=== PATIENT | male | born 1955 | race Caucasian/White ===

== ENCOUNTER 2019-04-08 12:48 | Inpatient (IN) | payer OTHER ==
[~2019-04-08 12:48] MED LIST: Iopamidol 370 76% 100 ML VIAL ONE
[2019-04-08 13:39] LABS: #Basophils 0.1 thou/uL (0.0-0.2); #Lymphocytes 1.2 thou/uL (1.20-3.40); #Monocytes 0.7 thou/uL (0.11-0.59); %Basophils 1.2 % (0.0-1.0); %Eosinophils 0.5 % (0.0-10.0); %Lymphocytes 13.4 % (21.0-51.0); %Monocytes 7.8 % (0.0-10.0); %Neutrophils 77.1 % (42.0-75.0); Hemoglobin 13.5 g/dL (14.0-18.0); Mean Corpuscular HGB CONC 34.8 g/dL (32.0-36.0); Mean Corpuscular Hemoglobin 34.9 pg (27.0-31.0); Mean Platelet Volume 7.9 fL (7.4-10.4); Platelet Count 141 thou/uL (130-400); RBC Distribution Width 11.9 % (11.5-14.5); Red Blood Cell (RBC) Count 3.88 mill/uL (4.70-6.10); White Blood Cell (WBC) Count 9.1 thou/uL (4.8-10.8)
--- NOTE | 2019-04-08 13:44 | RAD ---
EXAM: Single view of the chest HISTORY: Shortness of breath COMPARISON: None FINDINGS: Single view of the chest shows a normal sized cardiomediastinal silhouette. Airspace opacit ies are seen projecting over both lower lobes. The bones are unremarkable. IMPRESSION: Bilateral lower lobe infiltrates
[2019-04-08 14:05] LABS: ALT (SGPT) 74 U/L (8-55); AST (SGOT) 67 U/L (5-34); Albumin 4.1 g/dL (3.4-4.8); Alkaline Phosphatase 48 U/L (40-110); Anion Gap 15 mmol/L (10-20); BUN (Urea Nitrogen) 18 mg/dL (8.4-25.7); Calc. Creatinine Clearance 0 mL/min (70-130); Calcium 8.8 mg/dL (7.8-10.44); Carbon Dioxide 24 mmol/L (23-31); Chloride 104 mmol/L (98-107); Estimated GFR-MDRD Greater than 90; Globulin 2.6 g/dL (2.4-3.5); Glucose 112 mg/dL (80-115); Lipase 28 U/L (8-78); Potassium 3.9 mmol/L (3.5-5.1); Protein, Total 6.7 g/dL (5.8-8.1); Sodium 139 mmol/L (136-145)
[2019-04-08] MEDS ORDERED: Nitroglycerin 2% Ointment 1 INCH/1 GM Packet ONE (14:34)
[2019-04-08] MEDS ORDERED: Aspirin Chewable 81 MG TAB ONE (14:34)
[2019-04-08 14:38] LABS: CKMB 2.8 ng/mL (0-6.6)
--- NOTE | 2019-04-08 15:49 | CT ---
EXAM: CTA of the chest HISTORY: Shortness of breath and elevated d-dimer COMPARISON: None TECHNIQUE: Multiple contiguous axial images were obtained a CTA of the chest with contrast per pulmon angie embolism protocol. 3-D oblique MIP reformats and direct coronal reformats were performed. FINDINGS: HEART: Normal in size without focal cardiac abnormality. PULMONARY ARTERIES: Normal in caliber without filling defects to suggest pulmonary emboli. MEDIASTINUM: No hilar or mediastinal lymphadenopathy. LUNGS: No focal infiltrates or masses. Dependent bilateral atelectasis PLEURAL SPACE: Small bilateral pleural effusions. No pneumothorax. CHEST WALL SOFT TISSUES: Bilateral gynecomastia VISUALIZED OSSEOUS STRUCTURES: Degenerative changes in the spine VISUALIZED SUBDIAPHRAGMATIC STRUCTURES: Unremarkable IMPRESSION: 1. No evidence of pulmonary thromboembolism 2. Tiny bilateral pleural effusions with adjacent atelectasis
[2019-04-08] MEDS ORDERED: Enoxaparin Sodium 100 MG/ML SYRINGE ONE (16:03)
[2019-04-08] MEDS ORDERED: Enoxaparin Sodium 30 MG/0.3 ML SYRINGE ONE ×2 (16:03→16:08)
[2019-04-08] MEDS ORDERED: Loperamide HCl 2 MG CAP PO PRN (16:14)
[2019-04-08] MEDS ORDERED: Bisacodyl 5 MG TAB PO PRN (16:14)
[2019-04-08] MEDS ORDERED: Ondansetron ODT 4 MG TAB PO PRN (16:14)
[2019-04-08] MEDS ORDERED: HYDROcodone/Acetaminophen 5/325 mg Tablet PO PRN (16:14)
[2019-04-08] MEDS ORDERED: Acetaminophen 325 MG TAB PO PRN (16:14)
[2019-04-08] MEDS ORDERED: Ondansetron PF 4 MG/2 ML Vial IVP PRN (16:14)
[2019-04-08] MEDS ORDERED: Labetalol HCl 100 MG/20 ML VIAL SLOW IVP PRN (16:16)
[2019-04-08] MEDS ORDERED: Docusate 100 MG CAP PO PRN (16:16)
[2019-04-08] MEDS ORDERED: Melatonin 3 MG TAB PO PRN (16:16)
[2019-04-08] MEDS ORDERED: diphenhydrAMINE 25 MG CAP PO PRN (16:16)
[2019-04-08] MEDS ORDERED: Benzonatate 100 MG CAP PO PRN (16:16)
[2019-04-08] MEDS ORDERED: Nitroglycerin 0.4 MG TAB (25 Tab Bottle) SL PRN (16:18)
[2019-04-08] MEDS ORDERED: Morphine 2 MG/ML SYRINGE SLOW IVP PRN (16:18)
[2019-04-08] MEDS ORDERED: Furosemide 20 MG/2 ML VIAL ONE (16:39)
[2019-04-08] MEDS ORDERED: Enoxaparin Sodium 60 MG/0.6 ML SYRINGE ONE (17:15)
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
[2019-04-08] MEDS ORDERED: cloNIDine 0.2mg/24 Hour PATCH TD SCH (18:30)
[2019-04-08 18:54] LABS: Troponin I 0.319 ng/mL (< 0.028)
[2019-04-08 20:34] VITALS: BMI 36.6
[2019-04-08] MEDS: Enoxaparin Sodium 120 MG/0.8 ML SYRINGE SC SCH (21:18)
[2019-04-08] MEDS: Famotidine 20 MG TAB PO SCH (21:18)
[2019-04-08] MEDS: hydrALAZINE 20 MG/ML VIAL SLOW IVP PRN (21:20)
[2019-04-09 04:35] LABS: #Basophils 0.1 thou/uL (0.0-0.2); #Eosinphils 0.1 thou/uL (0.0-0.7); #Lymphocytes 1.5 thou/uL (1.20-3.40); #Monocytes 0.7 thou/uL (0.11-0.59); #Neutrophils 3.4 thou/uL (1.40-6.50); %Basophils 1.3 % (0.0-1.0); %Eosinophils 2.2 % (0.0-10.0); %Lymphocytes 25.7 % (21.0-51.0); %Monocytes 12.1 % (0.0-10.0); %Neutrophils 58.7 % (42.0-75.0); Hemoglobin 12.9 g/dL (14.0-18.0); Mean Corpuscular Hemoglobin 33.2 pg (27.0-31.0); Mean Platelet Volume 8.3 fL (7.4-10.4); Platelet Count 141 thou/uL (130-400); RBC Distribution Width 11.8 % (11.5-14.5); White Blood Cell (WBC) Count 5.8 thou/uL (4.8-10.8)
[2019-04-09 04:56] LABS: Anion Gap 12 mmol/L (10-20); BUN (Urea Nitrogen) 14 mg/dL (8.4-25.7); Calc. Creatinine Clearance 170 mL/min (70-130); Carbon Dioxide 26 mmol/L (23-31); Chloride 102 mmol/L (98-107); Estimated GFR-MDRD Greater than 90; Glucose 99 mg/dL (80-115); Potassium 3.7 mmol/L (3.5-5.1); Sodium 136 mmol/L (136-145)
[2019-04-09] MEDS: hydrALAZINE 20 MG/ML VIAL SLOW IVP PRN (05:33)
[2019-04-09] MEDS: Famotidine 20 MG TAB PO SCH ×2 (08:15→20:19)
--- NOTE | 2019-04-09 08:58 | PDOC.HOSPP ---
- Subjective Encounter Date: 04/09/19 Encounter Time: 11:20 Subjective: Patient with improvement in SOB. BP still quite elevated. Has Clonidine patch on. Was on BP meds outpatient but they caused foot pain so stopped them. Sounds like he was on Felodipine or Amlodipine along with Metoprolol. No chest pain. No swelling today. - Objective Vital Signs & Weight: Vital Signs (12 hours) Temp Pulse Resp BP Pulse Ox 04/09/19 08:12 98.3 F 92 20 199/106 H 96 04/09/19 05:33 83 04/09/19 04:00 97.7 F 83 17 184/101 H 97 04/09/19 00:44 98.1 F 87 16 168/79 H 96 04/09/19 00:00 98.1 F 87 16 168/79 H 96 Weight Weight 269 lb 12.8 oz Result Diagrams: 04/09/19 04:11 04/09/19 04:11 Hospitalist ROS - Review of Systems Constitutional: denies: fever, chills Respiratory: denies: cough, shortness of breath Cardiovascular: denies: chest pain, palpitations, orthopnea Gastrointestinal: denies: nausea, vomiting, abdominal pain - Medication Medications: Active Medications Generic Name Dose Route Start Last Admin Trade Name Freq PRN Reason Stop Dose Admin Enoxaparin Sodium 120 mg 04/08/19 21:00 04/08/19 21:18 Lovenox SC Not Given 0900,2100 [facility] Famotidine 20 mg 04/08/19 21:00 04/09/19 08:15 Pepcid PO Not Given BID [facility] Hydralazine HCl 10 mg 04/08/19 18:19 04/09/19 05:33 Apresoline SLOW IVP 10 mg Q4H PRN Administration Hypertension Lisinopril 5 mg 04/09/19 09:00 04/09/19 08:15 Zestril PO 5 mg DAILY [facility] Administration - Exam General Appearance: NAD, awake alert ENT: moist mucosa Heart: RRR, no murmur, no gallops, no rubs Respiratory: CTAB, no wheezes, no rales, no ronchi Gastrointestinal: soft, non-tender, non-distended, normal bowel sounds Extremities: no edema Psychiatric: normal affect, normal behavior, A&O x 3 Hosp A/P (1) Hypertensive emergency Code(s): I16.1 - HYPERTENSIVE EMERGENCY Status: Acute (2) Acute congestive heart failure Code(s): I50.9 - HEART FAILURE, UNSPECIFIED Status: Acute (3) NSTEMI (non-ST elevated myocardial infarction) Code(s): I21.4 - NON-ST ELEVATION (NSTEMI) MYOCARDIAL INFARCTION Status: Acute (4) HLD (hyperlipidemia) Code(s): E78.5 - HYPERLIPIDEMIA, UNSPECIFIED Status: Chronic (5) Obesity Code(s): E66.9 - OBESITY, UNSPECIFIED Status: Chronic - Plan Nitroglycerin, ASA, Hydralazine and Clonidine prn Lasix IV BID Enoxaparin full dose ECHO Cardiology consult
[2019-04-09] MEDS ORDERED: Lisinopril 5 MG TAB PO SCH (09:00)
[2019-04-09] MEDS ORDERED: Aspirin 325 MG TAB PO SCH (09:00)
--- NOTE | 2019-04-09 09:39 | ULT ---
RIGHT UPPER QUADRANT ULTRASOUND: HISTORY: Elevated LFTs. FINDINGS: Hepatomegaly with liver length of 21 cm. No evidence for gallstones. There is a prominent amount of pericholecystic fluid or edema. Negative Martins's sign. Common bile duct 0.5 cm. Coarse increased liver echogenicity, evidence for fatty change. Visualized pancreas and right kidney are unremarkabl e. Negative Martins's sign. IMPRESSION: Gallbladder, pericholecystic fluid, or minimal wall edema. No evidence of gallstones. Negative Murp hy's sign. Enlarged fatty liver. No common duct dilatation. POS: TPC
[2019-04-09] MEDS: cloNIDine 0.1 MG TAB PO PRN ×3 (10:04→20:35)
[2019-04-09] MEDS: Nitroglycerin 2% Ointment 1 INCH/1 GM Packet TOP SCH ×2 (10:04→20:19)
[2019-04-09] MEDS: Enoxaparin Sodium 120 MG/0.8 ML SYRINGE SC SCH (10:09)
[2019-04-09] MEDS ORDERED: Iopamidol 370 76% 100 ML VIAL ONE (10:55)
[2019-04-09] MEDS ORDERED: traZODone HCl 50 MG TAB PO PRN (12:14)
[2019-04-09 12:19] LABS: Bilirubin Negative (Negative); Blood, Urine Negative (Negative); Clarity Clear (Clear); Glucose, Urine (Dipstick) Normal (Negative); Leukocyte Negative Leu/uL (Negative); Nitrite Negative (Negative); Protein, Urine (Dipstick) Negative (Neg-Trace); Urobilinogen Normal mg/dL (Less than 2)
[2019-04-09 12:36] LABS: Amphetamine Not Detected (NotDetected); Barbiturates Screen Not Detected (NotDetected); Benzodiazepine Screen Not Detected (NotDetected); Cocaine Metabolite Screen Not Detected (NotDetected); Medtox Control Line Valid? VALID (VALID); Medtox Reader # READER 4; Methadone Not Detected (NotDetected); Methamphetamine Not Detected (NotDetected); Opiate Screen Not Detected (NotDetected); Oxycodone Screen Not Detected (NotDetected); Phencyclidine (PCP) Not Detected (NotDetected); THC/Cannabinoid Screen Not Detected (NotDetected); Tricyclic Screen Not Detected (NotDetected)
[2019-04-09] MEDS ORDERED: Heparin (Artline) 500 ML ONE ×2 (13:30→14:52)
[2019-04-09] MEDS ORDERED: Lidocaine 1% (PF) 30 ML VIAL ONE (13:30)
[2019-04-09] MEDS ORDERED: Sodium Chloride 0.9% 1,000 ML IV SCH (13:45)
[2019-04-09] MEDS ORDERED: Furosemide 40 MG/4 ML VIAL SLOW IVP SCH (14:00)
[2019-04-09] MEDS ORDERED: hydrALAZINE 20 MG/ML VIAL ONE (14:06)
[2019-04-09] MEDS ORDERED: Nitroglycerin 4.9 GM Bottle ONE (14:06)
[2019-04-09] MEDS ORDERED: Midazolam HCl 2 mg/2 ml Vial ONE (14:08)
[2019-04-09] MEDS ORDERED: Fentanyl 100 MCG/2 ML VIAL ONE (14:08)
[2019-04-09] MEDS ORDERED: Nitroglycerin 100MG/250ML BOT 250 ML ONE (14:13)
[2019-04-09] MEDS ORDERED: Verapamil 5 MG/2 ML VIAL ONE (14:17)
[2019-04-09] MEDS ORDERED: Heparin 10,000 UNITS/1 ML VIAL ONE ×2 (14:17→15:01)
--- NOTE | 2019-04-09 14:17 | CON ---
DATE OF CONSULTATION: 04/09/2019 REASON FOR CONSULTATION: Elevated troponin, shortness of breath, and hypertension. HISTORY OF PRESENT ILLNESS: Mr. Schmitt is a very pleasant 64-year-old gentleman, who recently presented with increased shortness of breath. He did have some mild chest tightness. Blood pressure initially was 230 systolic. This has improved. So to have his symptoms. His troponin was elevated at 0.6. He has no previous history of underlying coronary artery disease. He did admit to stopping all his medications. CT chest done in the emergency room showed no PE, and chest x-ray did suggest bilateral lower lobe infiltrates, but was not noted on CT scan. Abdominal ultrasound did not suggest gallstones with negative Martins sign. PAST MEDICAL HISTORY: Hypertension and hyperlipidemia. PAST SURGICAL HISTORY: None. SOCIAL HISTORY: Positive tobacco use. Dips tobacco. Negative alcohol use. HOME MEDICATIONS: None. REVIEW OF SYSTEMS: A 10-point review of systems is reviewed as above, otherwise negative. PHYSICAL EXAMINATION: GENERAL: The patient is a pleasant male, who is in no acute distress. The patient appears their stated age. VITAL SIGNS: Blood pressure 175/94, pulse 86, and respirations 20. NEUROLOGIC: The patient is alert and oriented x3 with no focal neurologic deficits. HEENT: Sclerae without icterus. Mouth has moist mucous membranes with normal pallor. NECK: No JVD. Carotid upstroke brisk. No bruits bilaterally. LUNGS: Clear to auscultation with unlabored respirations. BACK: No scoliosis or kyphosis. CARDIAC: Regular rate and rhythm with normal S1 and S2. No S3 or S4 noted. No significant rubs, murmurs, thrills, or gallops noted throughout the precordium. PMI is not displaced. There is no parasternal heave. ABDOMEN: Soft, nontender, nondistended. No peritoneal signs present. No hepatosplenomegaly. No abnormal striae. EXTREMITIES: 2+ femoral and 2+ dorsalis pedis pulses. No cyanosis, clubbing, or edema. SKIN: No gross abnormalities. PERTINENT LABORATORY DATA: Hemoglobin 12.9. Troponin 0.350. BNP of 240. IMPRESSION: 1. Elevated troponin. 2. Malignant hypertension. 3. Tobacco abuse. RECOMMENDATIONS: Mr. Schmitt did have elevated troponin and may be related to underlying coronary artery disease. This may also be related to type 2 CT for elevated blood pressure. I discussed proceeding with coronary angiography versus medical therapy versus noninvasive stress study. Initially, he opted for a noninvasive stress study. He then decided to proceed with coronary angiography. I discussed procedure in full detail with Jean Paul Oskar. Risks include, but not limited to the following . All questions answered. Also discussed drug coated and nondrug coated stent placement. There were no contraindications. We will proceed if needed. He understands he has to take Plavix for at least 6 months. We will manage his blood pressure aggressively. Job ID: [id number]
[2019-04-09] MEDS ORDERED: TICAGRELOR 90 MG TABLET ONE (15:01)
[2019-04-09] MEDS ORDERED: Acetaminophen/Codeine 30-300mg Tablet PO PRN (15:25)
[2019-04-09] MEDS ORDERED: traMADol HCl 50 MG TAB PO PRN (15:25)
[2019-04-09] MEDS ORDERED: Milk Of Magnesia 30 ML UDCUP PO PRN (15:25)
[2019-04-09] MEDS: Carvedilol 3.125 MG TAB PO SCH (15:58)
[2019-04-09] MEDS: Sodium Chloride 0.9% 1,000 ML IV SCH (16:12)
[2019-04-09] MEDS: TICAGRELOR 90 MG TABLET PO SCH (20:27)
[2019-04-10 04:24] LABS: #Eosinphils 0.2 thou/uL (0.0-0.7); #Lymphocytes 1.3 thou/uL (1.20-3.40); #Monocytes 0.7 thou/uL (0.11-0.59); %Basophils 0.5 % (0.0-1.0); %Monocytes 13.6 % (0.0-10.0); %Neutrophils 57.9 % (42.0-75.0); Hemoglobin 12.2 g/dL (14.0-18.0); Mean Corpuscular HGB CONC 34.2 g/dL (32.0-36.0); Mean Corpuscular Hemoglobin 34.8 pg (27.0-31.0); Mean Platelet Volume 8.5 fL (7.4-10.4); Platelet Count 130 thou/uL (130-400); RBC Distribution Width 11.9 % (11.5-14.5); White Blood Cell (WBC) Count 5.1 thou/uL (4.8-10.8)
[2019-04-10 04:43] LABS: ALT (SGPT) 42 U/L (8-55); AST (SGOT) 24 U/L (5-34); Albumin 3.6 g/dL (3.4-4.8); Alkaline Phosphatase 40 U/L (40-110); Anion Gap 11 mmol/L (10-20); BUN (Urea Nitrogen) 10 mg/dL (8.4-25.7); Bilirubin, Total 1.4 mg/dL (0.2-1.2); Calc. Creatinine Clearance 172 mL/min (70-130); Calcium 8.8 mg/dL (7.8-10.44); Carbon Dioxide 25 mmol/L (23-31); Chloride 104 mmol/L (98-107); Estimated GFR-MDRD Greater than 90; Globulin 2.5 g/dL (2.4-3.5); Glucose 87 mg/dL (80-115); Potassium 3.7 mmol/L (3.5-5.1); Protein, Total 6.1 g/dL (5.8-8.1); Sodium 136 mmol/L (136-145)
[2019-04-10] MEDS: Sodium Chloride 0.9% 1,000 ML IV SCH (06:30)
--- NOTE | 2019-04-10 08:20 | PDOC.HOSPP ---
- Subjective Encounter Date: 04/10/19 Encounter Time: 11:30 Subjective: Patient a bit fatigued. No other symptoms. BP better today. No chest pain/SOB. - Objective Vital Signs & Weight: Vital Signs (12 hours) Temp Pulse Resp BP BP Pulse Ox 04/10/19 04:00 98.4 F 84 20 144/70 H 97 04/10/19 00:51 63 19 140/72 99 04/09/19 21:15 76 19 199/109 H 04/09/19 20:35 199/109 H Weight Weight 267 lb Result Diagrams: 04/10/19 03:52 04/10/19 03:52 Hospitalist ROS - Review of Systems Constitutional: denies: fever, chills Respiratory: denies: cough, shortness of breath Cardiovascular: denies: chest pain, palpitations, orthopnea Gastrointestinal: denies: nausea, vomiting, abdominal pain - Medication Medications: Active Medications Generic Name Dose Route Start Last Admin Trade Name Freq PRN Reason Stop Dose Admin Carvedilol 3.125 mg 04/09/19 17:00 04/09/19 15:58 Coreg PO 3.125 mg BID-WM [facility] Administration Clonidine 0.1 mg 04/09/19 08:40 04/09/19 20:35 Catapres PO 0.1 mg Q4H PRN Administration SBP Greater Than 180 Famotidine 20 mg 04/08/19 21:00 04/09/19 20:19 Pepcid PO Not Given BID [facility] Hydralazine HCl 10 mg 04/08/19 18:19 04/09/19 05:33 Apresoline SLOW IVP 10 mg Q4H PRN Administration Hypertension Nitroglycerin 1 inch 04/09/19 09:00 04/09/19 20:19 Nitro-Bid 2% Ointment TOP Not Given BID S[facility] Ticagrelor 90 mg 04/09/19 21:00 04/09/19 20:27 Brilinta PO 90 mg BID S[facility] Administration Tramadol HCl 50 mg 04/09/19 15:25 04/09/19 20:36 Ultram PO 50 mg Q6H PRN Administration Pain 7-10 Trazodone HCl 50 mg 04/09/19 12:14 04/09/19 20:27 Desyrel PO 50 mg HS PRN Administration Insomnia - Exam General Appearance: NAD, awake alert ENT: moist mucosa Heart: RRR, no murmur, no gallops, no rubs Respiratory: CTAB, no wheezes, no rales, no ronchi Gastrointestinal: soft, non-tender, non-distended, normal bowel sounds Extremities: no edema Psychiatric: normal affect, normal behavior, A&O x 3 Hosp A/P (1) Hypertensive emergency Code(s): I16.1 - HYPERTENSIVE EMERGENCY Status: Resolved (2) Acute congestive heart failure Code(s): I50.9 - HEART FAILURE, UNSPECIFIED Status: Ruled-out (3) NSTEMI (non-ST elevated myocardial infarction) Code(s): I21.4 - NON-ST ELEVATION (NSTEMI) MYOCARDIAL INFARCTION Status: Acute (4) HLD (hyperlipidemia) Code(s): E78.5 - HYPERLIPIDEMIA, UNSPECIFIED Status: Chronic (5) Obesity Code(s): E66.9 - OBESITY, UNSPECIFIED Status: Chronic (6) CAD (coronary artery disease) Code(s): I25.10 - ATHSCL HEART DISEASE OF [place] CORONARY ARTERY W/O ANG PCTRS Status: Acute Plan: s/p 2 stents - Plan Nitroglycerin, ASA, Brilinta, increasing Coreg and Losartan to control BP Stents placed for multivessel CAD ECHO- normal EF, LVH DVT Proph: SCD Home when ok with cardiology
[2019-04-10] MEDS ORDERED: Losartan 25 MG TAB PO SCH (09:00)
[2019-04-10] MEDS ORDERED: Aspirin Chewable 81 MG TAB PO SCH (09:00)
[2019-04-10] MEDS: Famotidine 20 MG TAB PO SCH (09:01)
[2019-04-10] MEDS: Carvedilol 3.125 MG TAB PO SCH (09:02)
[2019-04-10] MEDS: Nitroglycerin 2% Ointment 1 INCH/1 GM Packet TOP SCH (09:02)
[2019-04-10] MEDS: TICAGRELOR 90 MG TABLET PO SCH ×2 (09:05→16:39)
--- NOTE | 2019-04-10 13:54 | PRG ---
DATE OF SERVICE: 04/10/2019 SUBJECTIVE: Mr. Schmitt is doing well. No current episodes of chest pain or pressure. Blood pressure appears to be more stable. He is currently on aspirin and ticagrelor in addition to losartan and carvedilol. OBJECTIVE: VITAL SIGNS: Blood pressure 147/78, pulse 70, and temperature afebrile. LUNGS: Clear to auscultation. HEART: Regular rate and rhythm. ABDOMEN: Soft, nontender, and nondistended. EXTREMITIES: No edema. IMPRESSION: 1. Malignant hypertension. 2. Unstable angina. RECOMMENDATIONS: Mr. Schmitt's blood pressure appears to be better controlled. He recently underwent stent placement to the LAD and circumflex artery and he is currently doing well. I will continue aspirin and Brilinta in addition to Coreg and losartan. We would add statin therapy. Plan is to follow up with Mr. Schmitt in 1 to 2 weeks. Job ID: [id number]
--- NOTE | 2019-04-10 15:17 | DIS ---
DATE OF ADMISSION: 04/08/2019 DATE OF DISCHARGE: 04/10/2019 PRIMARY CARE PHYSICIAN: Mark Moran. REASON FOR ADMISSION: [id number] myocardial infarction. DIAGNOSES AT DISCHARGE: 1. Gbv-AE-whygwrtne myocardial infarction. 2. Hypertensive emergency. 3. Coronary artery disease, status post 2 stents. 4. Hyperlipidemia. 5. Obesity. PROCEDURES: 1. CT angiography of the chest and thorax showing no evidence for pulmonary embolism, but tiny bilateral pleural effusions. 2. Echocardiogram showing ejection fraction of 50% to 55%. Mild concentric left ventricular hypertrophy. 3. Cardiac catheterization showing severe multivessel disease with successful stent placement in the LAD and circumflex. 4. Abdominal ultrasound showing fluid around the gallbladder and edema, but no gallstones and negative Martins signs with an enlarged fatty liver. SUMMARY OF HOSPITAL COURSE: This is a 64-year-old white male with a known history of hypertension, who stopped taking medicines because it was causing his feet to hurt in the past. He came in with complaint of shortness of breath. No specific chest pain. He was found to have elevated cardiac markers. His blood pressure was very elevated above 200 systolic. This was brought down with multiple medications. Dr. Devlin was consulted. He did a cardiac catheterization and placed 2 stents as above. The patient also had some mildly elevated liver function tests, AST and ALT on admission, so he had an ultrasound done. This did show some edema around the gallbladder, but he had no pain and no tenderness, and showed a fatty liver as well. The edema was thought to be due to acute congestion from his hypertensive emergency, which is now resolved. His LFTs came back down to normal and his gallbladder was not symptomatic. No evidence of acute cholecystitis. There was no further workup done for this. The patient's blood pressure was difficult to control with addition of multiple medications, eventually was running fairly well controlled in the 140s and he was declared stable for discharge. DISCHARGE MANAGEMENT: Discharged to home. ACTIVITY: As tolerated. DIET: Healthy heart diet. FOLLOWUP: Follow up with Dr. Devlin in 1 week with cardiac rehab in [place] and with Dr. Mark Moran in 2 to 3 weeks. DISCHARGE MEDICATIONS: 1. Aspirin 81 mg daily, 30 tablets dispensed. 2. Carvedilol 6.25 mg twice a day, 60 tablets dispensed. 3. Losartan 50 mg daily, 30 tablets dispensed. 4. Brilinta 90 mg twice a day, 60 tablets dispensed. TIME SPENT: Arranging the details of this discharge took 32 minutes. Job ID: [id number]
--- NOTE | 2019-04-10 15:21 | PQF ---
CLINICAL DOCUMENTATION IMPROVEMENT CLARIFICATION FORM: ICD-10 Updated PLEASE DO AN ADDENDUM TO THE PROGRESS NOTE WITH ANY DOCUMENTATION UPDATES OR ADDITIONS AND CARRY THROUGH TO DC SUMMARY. THANK YOU. DATE: 04/10/2019 ATTN: Dr. Morris Please exercise your independent, professional judgment in responding to the clarification form. Clinical indicators are provided on the bottom of this form for your review Please check appropriate box(s): AMI TYPE: [ X ] Type 1 OR (NSTEMI) [ ] Type 2 OR (T2MI) secondary to: [ ] hypertension [ ] arrhythmia [ ] other [ ] Unstable Angina [ ] Other diagnosis [ ] Unable to determine In addition, please specify: Present on Admission (POA): [ X ] Yes [ ] No [ ] Unable to determine CLINICAL INDICATORS - SIGNS / SYMPTOMS / LABS / RESULTS AND LOCATION IN EMR 04/09 ([facility]) LAB: Troponin 0.350 Pt did have elevated troponin and may be related to underlying CAD. This may also be related to type 2 OR for elevated BP. PN 04/10: Hypertensive Emergency NSTEMI 04/10 ([facility]) Malignant hypertension Unstable angina RISKS: H&P 04/08: PMH of uncontrolled HTN. TREATMENT: H&P 04/08: Plan: Cardiology consult Full dose lovenox trend cardiac enzymes PN 04/10: Plan: Nitroglycerin, ASA, Brilinta, increasing Coreg and Losarten to control BP Stents placed for multivessel CAD Thank you, Yennifer (This form is maintained as a part of the permanent medical record) 2014 [employer]. All Rights Reserved Yennifer Meza RN, BSN [email or web address] Office: [phone] [facility]
[2019-04-10 16:24] VITALS: TEMP 98
[2019-04-10] MEDS: cloNIDine 0.1 MG TAB PO PRN (16:38)
[2019-04-10] MEDS ORDERED: Carvedilol 6.25 MG TAB PO SCH (17:00)
[2019-04-10 17:41] VITALS: BP 163/93
[2019-04-10] MEDS ORDERED: Atorvastatin Calcium 40 MG TAB PO SCH (21:00)
--- NOTE | 2019-04-11 07:18 | EKG ---
Test Reason : Blood Pressure : / mmHG Vent. Rate : 083 BPM Atrial Rate : 083 BPM P-R Int : 174 ms QRS Dur : 110 ms QT Int : 446 ms P-R-T Axes : 078 -41 031 degrees QTc Int : 524 ms Normal sinus rhythm Possible Left atrial enlargement Left axis deviation Left ventricular hypertrophy Prolonged QT Abnormal ECG No previous ECGs available Confirmed by DR. Devora GONG ([id number]) on 04/11/2019 7:18:13 AM Referred By: Confirmed By:DR. Devora GONG
== END 2019-04-10 18:05 | disposition home or self-care (01) | DRG 247 ==
LOC: ERS 12:48 → 2NO 16:11
PROVIDERS: ADMIT Internal Medicine; ATTEND Emergency Medicine
PROC: 027135Z Dilation of Coronary Artery, Two Arteries with Two Drug-eluting Intraluminal Devices, Percutaneous Approach (ICD-10-PCS; principal; 2019-04-09)
PROC: 4A023N7 Measurement of Cardiac Sampling and Pressure, Left Heart, Percutaneous Approach (ICD-10-PCS; 2019-04-09)
PROC: B2111ZZ Fluoroscopy of Multiple Coronary Arteries using Low Osmolar Contrast (ICD-10-PCS; 2019-04-09)
DX: I21.4 Non-ST elevation (NSTEMI) myocardial infarction (principal); I16.1 Hypertensive emergency; I10 Essential (primary) hypertension; E78.5 Hyperlipidemia, unspecified; Z91.14 Patient's other noncompliance with medication regimen; Z68.36 Body mass index [BMI] 36.0-36.9, adult; E66.01 Morbid (severe) obesity due to excess calories; I25.110 Atherosclerotic heart disease of native coronary artery with unstable angina pectoris
CPT/HCPCS: 36415; 36416; 71045; 71275; 76705; 80048; 80053; 80306; 81003; 82553; 83690; 83880; 84484; 85025; 85347; 85379; 93005; 93010; 93306; 93458; 93798; 99152; 99153; C1769; C1874; C1887; J0360; J1644; J1650; J1940; J2001; J2250; J3010; Q9967

== ENCOUNTER 2019-04-18 11:55 | Inpatient (IN) | payer OTHER ==
[2019-04-18 13:04] LABS: #Eosinphils 0.1 thou/uL (0.0-0.7); #Monocytes 0.5 thou/uL (0.11-0.59); #Neutrophils 5.3 thou/uL (1.40-6.50); %Basophils 0.7 % (0.0-1.0); %Lymphocytes 14.8 % (21.0-51.0); %Monocytes 7.3 % (0.0-10.0); %Neutrophils 76.3 % (42.0-75.0); Hemoglobin 14.7 g/dL (14.0-18.0); Mean Corpuscular HGB CONC 34.4 g/dL (32.0-36.0); Mean Corpuscular Hemoglobin 34.4 pg (27.0-31.0); Mean Corpuscular Volume 99.9 fL (78.0-98.0); Mean Platelet Volume 7.6 fL (7.4-10.4); Platelet Count 207 thou/uL (130-400); RBC Distribution Width 11.7 % (11.5-14.5); Red Blood Cell (RBC) Count 4.27 mill/uL (4.70-6.10); White Blood Cell (WBC) Count 6.9 thou/uL (4.8-10.8)
[2019-04-18] MEDS ORDERED: hydrALAZINE 20 MG/ML VIAL ONE ×2 (13:17→18:06)
--- NOTE | 2019-04-18 13:18 | RAD ---
Chest AP view INDICATION: Dyspnea COMPARISON: Chest radiograph dated April 08, 2019 FINDINGS: Lungs: There are interstitial opacities involving both lower lobes slightly less pronounced than on the prior exam. Cardiac silhouette: Mild cardiomegaly Pulmonary vasculature: Mild pulmonary vascular congestion Pleural spaces: Tiny left pleural effusion. No right-sided pleural effusion identified. Upper abdomen: No abnormality seen. Osseous structures: No acute osseous abnormality. Additional findings: None. IMPRESSION: Findings suspicious for mild CHF.
[2019-04-18 13:26] LABS: ALT (SGPT) 51 U/L (8-55); AST (SGOT) 36 U/L (5-34); Albumin 4.4 g/dL (3.4-4.8); Alkaline Phosphatase 55 U/L (40-110); Anion Gap 16 mmol/L (10-20); BUN (Urea Nitrogen) 14 mg/dL (8.4-25.7); Calc. Creatinine Clearance 0 mL/min (70-130); Calcium 9.1 mg/dL (7.8-10.44); Carbon Dioxide 23 mmol/L (23-31); Chloride 103 mmol/L (98-107); Estimated GFR-MDRD Greater than 90; Globulin 3.1 g/dL (2.4-3.5); Glucose 84 mg/dL (80-115); Potassium 3.8 mmol/L (3.5-5.1); Protein, Total 7.5 g/dL (5.8-8.1); Sodium 138 mmol/L (136-145)
[2019-04-18] MEDS ORDERED: Nitroglycerin 2% Ointment 1 INCH/1 GM Packet ONE (14:43)
[2019-04-18] MEDS ORDERED: Furosemide 40 MG/4 ML VIAL ONE (14:43)
[2019-04-18] MEDS ORDERED: Nitroglycerin 0.4 MG TAB 1 EACH ONE (14:43)
[2019-04-18] MEDS ORDERED: Labetalol HCl 100 MG/20 ML VIAL ONE (16:09)
[2019-04-18] MEDS ORDERED: Ondansetron PF 4 MG/2 ML Vial IVP PRN (16:44)
[2019-04-18] MEDS ORDERED: Acetaminophen 325 MG TAB PO PRN (16:44)
[2019-04-18] MEDS ORDERED: Enalaprilat Dihydrate 1.25 MG/ML VIAL SLOW IVP PRN (16:46)
[2019-04-18] MEDS ORDERED: Furosemide 20 MG/2 ML VIAL SLOW IVP SCH (18:30)
[2019-04-18 18:40] LABS: Troponin I 0.034 ng/mL (< 0.028)
[2019-04-18] MEDS ORDERED: Ondansetron PF 4 MG/2 ML Vial ONE (18:47)
--- NOTE | 2019-04-18 18:49 | HP ---
PRIMARY CARE PROVIDER: Dr. Mark Moran. CHIEF COMPLAINT: Elevated blood pressure. HISTORY OF PRESENT ILLNESS: Mr. Schmitt is a pleasant 64-year-old gentleman, who was seen at [facility] on 04/18/2019. He was hospitalized at this facility from April 08 to of this year for [id number] myocardial infarction, hypertensive emergency, coronary artery disease status post PCI with 2 stents. He reports that he also has a history of depression and was off his antidepressants for a few months before resuming last week. He went to see his primary care provider earlier today. He was found to have elevated blood pressures. He was therefore sent to the emergency room. He denies any chest pain. He denies any shortness of breath. He denies any fevers or chills. He denies any nausea or vomiting. He denies any vision changes. REVIEW OF SYSTEMS: All systems were reviewed and found to be negative except for the pertinent positives mentioned above. PAST MEDICAL HISTORY: Hypertension, coronary artery disease status post PCI with stent. PAST SURGICAL HISTORY: None. PSYCHIATRIC HISTORY: Depression. SOCIAL HISTORY: The patient drinks a pint of vodka every day. He used to chew tobacco, but has stopped it. He denies recreational drug use. FAMILY HISTORY: Significant for stroke in his father. ALLERGIES: SULFA. CURRENT MEDICATIONS: The patient is unable to recall the name of his medications. He was discharged home on: 1. Aspirin 81 mg daily. 2. Coreg 6.25 mg 2 times a day. 3. Losartan 50 mg daily. 4. Brilinta 90 mg 2 times a day. PHYSICAL EXAMINATION: GENERAL: On examination, Mr. Schmitt is awake and alert, not in acute distress. He is obese. VITAL SIGNS: Blood pressure is 193/91, pulse 64, respiratory rate 18, and oxygen saturation 96% on room air. He is afebrile. EYES: No scleral icterus, no conjunctival pallor. ENT: Moist mucosal membranes. No oropharyngeal erythema or exudates. NECK: Supple, nontender, trachea is midline. RESPIRATORY: Accessory muscles of breathing are not active. Chest wall movements are symmetric bilaterally. Lungs are clear to auscultation without wheeze, rhonchi, or crepitations. CARDIOVASCULAR: S1 and S2 are heard, regular. Peripheral pulses palpable. ABDOMEN: Soft, nontender, bowel sounds are heard. NEUROLOGIC: Cranial nerves 2 through 12 are intact. MUSCULOSKELETAL: Power is 5/5 in all 4 extremities. SKIN: No rashes or subcutaneous nodules. LYMPHATIC: No cervical lymphadenopathy. PSYCHIATRIC: Normal mood, normal affect, the patient is oriented to person, place, and time. LABORATORY DATA: Mr. Schmitt's labs and investigations were reviewed. I reviewed his electrocardiogram, which shows normal sinus rhythm, no ST changes to suggest an acute coronary syndrome. I also reviewed his chest x-ray, which shows mild pulmonary vascular congestion. AST is elevated at 36. Comprehensive metabolic profile is otherwise normal. Troponin I is normal at 0.028. BNP is elevated at 352. White count, hemoglobin, and platelet count are normal. ASSESSMENT AND PLAN: Mr. Schmitt is a pleasant 64-year-old gentleman, who was seen at [facility] on 04/18/2019. His problem list includes: 1. Hypertensive urgency: Mr. Schmitt is presenting with hypertensive urgency. He will be admitted to the hospital for further management. He will be started on p.r.n. antihypertensives and his home medications will be resumed. Further management depending on how he responds. 2. Congestive heart failure: Suspected, based on chest x-ray appearance and elevated BNP. The patient himself denies any shortness of breath or lower extremity edema. He has received a dose of furosemide in the emergency room, which I will continue for now. Cardiology Service will be consulted both for new onset congestive heart failure as well as hypertensive urgency. 3. Coronary artery disease: This appears to be stable. 4. Alcohol abuse: The patient has been counseled regarding alcohol cessation. He will be started on ASE protocol and banana bag. 5. Elevated AST: Most likely secondary to alcohol abuse. To be followed as outpatient. 6. Depression: Moderate, the patient reports that he recently resumed his antidepressant, but is unable to recall the name. Once this is clarified, he can be started on the medication. Many thanks for allowing me to participate in your patient's care. Please feel free to contact me with any questions or concerns. LEVEL OF RISK: High. LEVEL OF COMPLEXITY: High. Job ID: [id number]
[2019-04-18] MEDS: Labetalol HCl 100 MG/20 ML VIAL SLOW IVP PRN (19:53)
[2019-04-18] MEDS: TICAGRELOR 90 MG TABLET PO SCH (20:05)
[2019-04-18 20:58] LABS: Troponin I 0.035 ng/mL (< 0.028)
[2019-04-18] MEDS: hydrALAZINE 20 MG/ML VIAL SLOW IVP PRN (22:18)
[2019-04-18 23:39] VITALS: BMI 34.5
[2019-04-19] MEDS: Labetalol HCl 100 MG/20 ML VIAL SLOW IVP PRN (00:52)
[2019-04-19] MEDS: Multivitamins, Adult 10 ML, Folic Acid 1 MG, Thiamine HCl 100 MG in Dextrose 5 %-0.45 %... IV SCH ×2 (00:53→18:11)
[2019-04-19] MEDS ORDERED: Melatonin 3 MG TAB PO PRN (01:52)
[2019-04-19] MEDS ORDERED: Melatonin 3 MG TAB PO SCH (02:00)
[2019-04-19] MEDS ORDERED: Lidocaine 2% Viscous Solution 10 ML, Aluminum & Magnesium Hydroxide 30 ML SSW SCH (02:30)
[2019-04-19 04:49] LABS: #Lymphocytes 0.9 thou/uL (1.20-3.40); #Monocytes 1.1 thou/uL (0.11-0.59); #Neutrophils 6.9 thou/uL (1.40-6.50); %Basophils 0.4 % (0.0-1.0); %Eosinophils 0.5 % (0.0-10.0); %Lymphocytes 10.5 % (21.0-51.0); %Monocytes 12.5 % (0.0-10.0); %Neutrophils 76.2 % (42.0-75.0); Hemoglobin 14.7 g/dL (14.0-18.0); Mean Corpuscular HGB CONC 34.5 g/dL (32.0-36.0); Mean Corpuscular Hemoglobin 34.2 pg (27.0-31.0); Mean Corpuscular Volume 99.1 fL (78.0-98.0); Mean Platelet Volume 7.9 fL (7.4-10.4); Platelet Count 207 thou/uL (130-400); RBC Distribution Width 11.8 % (11.5-14.5)
[2019-04-19] MEDS: hydrALAZINE 20 MG/ML VIAL SLOW IVP PRN (05:10)
[2019-04-19 05:13] LABS: Anion Gap 16 mmol/L (10-20); BUN (Urea Nitrogen) 13 mg/dL (8.4-25.7); Calc. Creatinine Clearance 159 mL/min (70-130); Calcium 8.9 mg/dL (7.8-10.44); Carbon Dioxide 24 mmol/L (23-31); Chloride 99 mmol/L (98-107); Estimated GFR-MDRD Greater than 90; Glucose 111 mg/dL (80-115); Potassium 3.4 mmol/L (3.5-5.1); Sodium 136 mmol/L (136-145)
[2019-04-19] MEDS: Furosemide 40 MG/4 ML VIAL SLOW IVP SCH ×2 (06:23→14:08)
[2019-04-19] MEDS: Carvedilol 6.25 MG TAB PO SCH ×4 (07:22→20:49)
[2019-04-19] MEDS: Aspirin 81 mg Enteric Coated Tablet PO SCH (07:29)
[2019-04-19] MEDS: TICAGRELOR 90 MG TABLET PO SCH ×2 (07:30→20:50)
[2019-04-19] MEDS: Enoxaparin Sodium 40 MG/0.4 ML SYRINGE SC SCH (07:31)
[2019-04-19] MEDS ORDERED: Carvedilol 6.25 MG TAB PO SCH (08:00)
[2019-04-19] MEDS ORDERED: Losartan 25 MG TAB PO SCH ×3 (08:00→09:00)
[2019-04-19] MEDS ORDERED: ALPRAZolam 0.25 MG TAB PO SCH (08:00)
[2019-04-19] MEDS: FLUoxetine HCl 20 MG CAP PO SCH (08:19)
[2019-04-19] MEDS: cloNIDine 0.1 MG TAB PO PRN ×2 (08:19→18:39)
[2019-04-19] MEDS ORDERED: Potassium Chloride 20 MEQ TAB PO SCH (14:45)
--- NOTE | 2019-04-19 18:43 | PDOC.HOSPP ---
- Subjective Encounter Date: 04/19/19 Encounter Time: 08:20 Subjective: Pt seen for followup re: hypertensive urgency. Feels better today. - Objective Vital Signs & Weight: Vital Signs (12 hours) Temp Pulse Resp BP BP Pulse Ox 04/19/19 18:39 172/79 H 04/19/19 15:16 98.2 F 60 12 149/76 H 97 04/19/19 11:01 61 14 105/54 L 97 04/19/19 09:00 99.1 F 04/19/19 07:45 99.3 F 67 15 196/93 H 97 Weight Weight 255 lb I&O: 04/18/19 04/19/19 04/20/19 06:59 06:59 06:59 Intake Total 2560 Output Total 3200 Balance -640 Result Diagrams: 04/19/19 04:01 04/19/19 04:01 Additional Labs: Accuchecks 04/18/19 19:20 POC Glucose 93 Labs and MARs reviewed by me EKG Reviewed by me: Yes (Tele: NSR) Hospitalist ROS - Review of Systems Constitutional: denies: fever, chills, sweats, weakness, malaise Respiratory: denies: cough, shortness of breath, SOB with excertion, pleuritic pain, wheezing Cardiovascular: denies: chest pain, palpitations, orthopnea, paroxysmal noc. dyspnea, edema, light headedness Gastrointestinal: denies: nausea, vomiting, abdominal pain, diarrhea, constipation, melena, hematochezia Musculoskeletal: denies: neck pain, shoulder pain, arm pain, back pain, hand pain, leg pain, foot pain Neurological: reports: other (headache). denies: weakness, numbness, incoordination, change in speech, confusion, seizures - Medication Medications: Active Medications Generic Name Dose Route Start Last Admin Trade Name Freq PRN Reason Stop Dose Admin Acetaminophen 650 mg 04/18/19 16:44 04/18/19 19:49 Tylenol PO 650 mg Q4H PRN Administration Headache/Fever/Mild Pain (1-3) Aspirin 81 mg 04/19/19 09:00 04/19/19 07:29 Ecotrin PO 81 mg DAILY SCOOTER Administration Carvedilol 12.5 mg 04/19/19 09:00 04/19/19 08:09 Coreg PO Not Given BID SCOOTER Clonidine 0.1 mg 04/19/19 07:56 04/19/19 18:39 Catapres PO 0.1 mg BIDPRN PRN Administration BP > 170/100 Enoxaparin Sodium 40 mg 04/19/19 09:00 04/19/19 07:31 Lovenox SC 40 mg 0900 SCOOTER Administration Fluoxetine HCl 20 mg 04/19/19 09:00 04/19/19 08:19 Prozac PO 20 mg DAILY SCOOTER Administration Furosemide 40 mg 04/19/19 06:00 04/19/19 14:08 Lasix SLOW IVP 40 mg 0600,1400 SCOOTER Administration Hydralazine HCl 10 mg 04/18/19 16:45 04/19/19 05:10 Apresoline SLOW IVP 10 mg Q4H PRN Administration SBP Greater Than 180 Multivitamins 10 ml/ Folic 1,011.2 mls @ 50 mls/hr 04/18/19 18:30 04/19/19 18 :11 Acid 1 mg/ Thiamine HCl 100 mg IV 1,011.2 mls / Dextrose/Sodium Chloride Q24HR SCOOTER Administration Labetalol HCl 10 mg 04/18/19 16:46 04/19/19 00:52 Normodyne SLOW IVP 10 mg Q4H PRN Administration SBP Greater Than 170 Ondansetron HCl 4 mg 04/18/19 16:44 04/19/19 00:52 Zofran IVP 4 mg Q6H PRN Administration Nausea/Vomiting Sodium Chloride 10 ml 04/19/19 09:00 04/19/19 14:09 Flush - Normal Saline IVF 10 ml Q12HR SCOOTER Administration Ticagrelor 90 mg 04/18/19 21:00 04/19/19 07:30 Brilinta PO 90 mg BID SCOOTER Administration - Exam General Appearance: awake alert General - other findings: Obese Eye: anicteric sclera ENT: normocephalic atraumatic Neck: supple Heart: RRR, no gallops, no rubs, normal peripheral pulses Respiratory: CTAB, no wheezes, no rales, no ronchi, normal chest expansion Gastrointestinal: soft, non-tender, non-distended, normal bowel sounds Extremities: no cyanosis Psychiatric: normal affect, normal behavior, A&O x 3 Hosp A/P (1) Hypertensive urgency Code(s): I16.0 - HYPERTENSIVE URGENCY Status: Acute (2) Alcohol abuse Code(s): F10.10 - ALCOHOL ABUSE, UNCOMPLICATED Status: Chronic (3) HLD (hyperlipidemia) Code(s): E78.5 - HYPERLIPIDEMIA, UNSPECIFIED Status: Chronic (4) Obesity Code(s): E66.9 - OBESITY, UNSPECIFIED Status: Chronic Qualifiers: Obesity classification: adult class 1 (BMI 30 - 34.9) - Plan out of bed/ambulate BP improved. Ambien PRN for insomnia. Continue statin. Continue ASE protocol.
[2019-04-19] MEDS ORDERED: Zolpidem Tartrate 5 MG TAB PO PRN (19:03)
--- NOTE | 2019-04-19 20:53 | CON ---
DATE OF CONSULTATION: 04/19/2019 REASON FOR CONSULTATION: Hypertension. PRIMARY JAVA WEB ARCHITECT: Dr. Anders Devlin. HISTORY OF PRESENT ILLNESS: Mr. Schmitt is a pleasant 64-year-old white gentleman, who comes to the hospital for high blood pressure. He had an [place] back on April 08. He underwent PCI by Dr. Devlin. He had stenting to his LAD and left circumflex. He was discharged home, doing well. He was evaluated by his primary care doctor yesterday and was found to have a very high blood pressure in the 190s range, so he was sent over for further evaluation. He was admitted and up titration of medications was started and his blood pressure is doing much better now. On my evaluation, Mr. Schmitt denies any chest pain, tightness, and pressure. His blood pressure is much better controlled. PAST MEDICAL HISTORY: 1. Hypertension. 2. Coronary artery disease, status post PCI just a week or two ago. PAST SURGICAL HISTORY: PCI to LAD and left circumflex on April 10. SOCIAL HISTORY: Drinks a pint of vodka everyday. Chews tobacco, but has stopped since. No drug use. FAMILY HISTORY: Stroke in father. No early coronary artery disease. OUTPATIENT MEDICATIONS: 1. Fluoxetine 20 mg a day. 2. Losartan 100 mg daily. 3. Aspirin 81 a day. 4. Carvedilol 12.5 b.i.d. 5. Clonidine 0.1 b.i.d. p.r.n. 6. Atorvastatin 40 mg at bedtime. 7. Brilinta 90 mg b.i.d. ALLERGIES: SULFA DRUGS. REVIEW OF SYSTEMS: A 12-point review of systems was also negative unless stated in the history of present illness. PHYSICAL EXAMINATION: VITAL SIGNS: Temperature 98.2, pulse , respiratory rate 12, saturating 97% on 2 L nasal cannula, and blood pressure 149/76. GENERAL: Awake, alert, and oriented x3. No distress. HEENT: Normocephalic and atraumatic. NECK: Supple. LUNGS: Clear. CARDIOVASCULAR: S1 and S2. No S3 or S4. No murmurs. ABDOMEN: Soft. Positive bowel sounds. EXTREMITIES: No edema. SKIN: Warm and dry. LABORATORY DATA: Laboratory work was reviewed. CBC and chemistries were reviewed. Troponin was 0.02, 0.03, and 0.03. BNP of 352. Chest x-ray was reviewed, showed mild CHF. ASSESSMENT: 1. Hypertensive urgency. 2. Coronary artery disease, status post recent stenting to left anterior descending artery and left circumflex. 3. Mild diastolic congestive heart failure. PLAN: 1. Would stop any further diuresis as he seems euvolemic today. He already got IV Lasix yesterday. 2. I agree with up titration of his outpatient medications. He is supposedly on 100 mg of losartan b.i.d. The correct dose would be 100 a day as the max dose is just 100 day for blood pressure. Would agree with increased dose of Coreg at 12.5 b.i.d. Would add amlodipine 5 mg a day. 3. May discharge home tomorrow. We will sign off. Please call with any questions. Job ID: [id number]
[2019-04-20 04:51] LABS: Band 5 % (5-11); Eosinophils 1 % (0-10); Hemoglobin 14.5 g/dL (14.0-18.0); Lymphocytes 22 % (21-51); MDiff Complete? YES; Mean Corpuscular HGB CONC 34.1 g/dL (32.0-36.0); Mean Corpuscular Hemoglobin 34.2 pg (27.0-31.0); Mean Platelet Volume 7.9 fL (7.4-10.4); Monocytes 9 % (0-10); Neutrophil 63 % (42-75); Platelet Count 184 thou/uL (130-400); Platelet Morphology Comment Appears Adequate; RBC Distribution Width 11.8 % (11.5-14.5); RBC Morphology Normal; Red Blood Cell (RBC) Count 4.24 mill/uL (4.70-6.10)
[2019-04-20 04:52] LABS: Anion Gap 12 mmol/L (10-20); BUN (Urea Nitrogen) 16 mg/dL (8.4-25.7); Calc. Creatinine Clearance 153 mL/min (70-130); Carbon Dioxide 30 mmol/L (23-31); Chloride 97 mmol/L (98-107); Estimated GFR-MDRD Greater than 90; Glucose 105 mg/dL (80-115); Potassium 3.6 mmol/L (3.5-5.1); Sodium 135 mmol/L (136-145)
[2019-04-20 07:31] VITALS: TEMP 98.2
[2019-04-20] MEDS ORDERED: Amlodipine 5 MG TAB PO SCH (09:00)
[2019-04-20] MEDS ORDERED: Losartan 25 MG TAB PO SCH (09:00)
[2019-04-20] MEDS: Aspirin 81 mg Enteric Coated Tablet PO SCH (09:38)
[2019-04-20] MEDS: Carvedilol 6.25 MG TAB PO SCH (09:39)
[2019-04-20] MEDS: FLUoxetine HCl 20 MG CAP PO SCH (09:41)
[2019-04-20] MEDS: Enoxaparin Sodium 40 MG/0.4 ML SYRINGE SC SCH (09:41)
[2019-04-20] MEDS: TICAGRELOR 90 MG TABLET PO SCH (09:42)
[2019-04-20 11:14] VITALS: BP 168/83
--- NOTE | 2019-04-21 03:03 | DIS ---
DATE OF ADMISSION: 04/18/2019 DATE OF DISCHARGE: 04/20/2019 PRIMARY CARE PROVIDER: Mark Moran, DISCHARGE DIAGNOSES: 1. Hypertensive urgency. 2. Acute diastolic congestive heart failure, [place] Heart Association class II. 3. Hyponatremia. 4. Hypokalemia. 5. Uqy-SW-rakwoybad myocardial infarction type 2, secondary to congestive heart failure. CONDITION OF PATIENT ON THE DAY OF DISCHARGE: Stable. I assessed Mr. Schmitt on the day of discharge. He denies any chest pain or shortness of breath. Vital signs are stable. S1 and S2 are heard, regular. Lungs are clear to auscultation bilaterally. CONSULTATIONS DURING THIS HOSPITALIZATION: Cardiology, Mark Weiss MD DISCHARGE MEDICATIONS: He has been started on thiamine 100 mg daily. Cozaar dose has been changed to 100 mg daily. He has been started on amlodipine 5 mg daily. Otherwise, no change was made to the rest of his home medications, which consist of: 1. Prozac 20 mg daily. 2. Aspirin 81 mg daily. 3. Lipitor 40 mg at bedtime. 4. Coreg 12.5 mg 2 times a day. 5. Brilinta 90 mg 2 times a day. 6. Clonidine p.r.n. HOSPITAL COURSE: Mr. Schmitt is a pleasant 64-year-old gentleman, who was admitted to [facility] on April 18, 2019, for hypertensive urgency and acute diastolic congestive heart failure. Blood pressure is improved after adjusting his blood pressure medications. He was also seen by Cardiology Service. He is being discharged home in a stable condition. He has been advised to check his blood pressure and heart rate 3 times a day and show the readings to his primary care provider. POST ACUTE CARE FOLLOWUP: With primary care provider in [address] Devlin, Cardiology, in 2 to 3 weeks. ACTIVITY: No restrictions. DIET: Heart healthy. DISCHARGE DESTINATION: Home. TIME SPENT: Total amount of time spent coordinating this discharge: 31 minutes. Please note that the patient has been advised to consider sleep study as outpatient if his blood pressure continues to be high. He does report that he snores, but it is unclear if he has any apneic spells. Job ID: [id number]
== END 2019-04-20 12:52 | disposition home or self-care (01) | DRG 280 ==
LOC: ERS 11:55 → 2NO 17:21
PROVIDERS: ADMIT Internal Medicine; ATTEND Internal Medicine
DX: I11.0 Hypertensive heart disease with heart failure (principal); I50.31 Acute diastolic (congestive) heart failure; I21.A1 Myocardial infarction type 2; E87.1 Hypo-osmolality and hyponatremia; I16.0 Hypertensive urgency; E87.6 Hypokalemia; I25.10 Atherosclerotic heart disease of native coronary artery without angina pectoris; F32.9 Major depressive disorder, single episode, unspecified; F10.10 Alcohol abuse, uncomplicated; E66.9 Obesity, unspecified; F17.220 Nicotine dependence, chewing tobacco, uncomplicated; Z95.5 Presence of coronary angioplasty implant and graft; Z88.2 Allergy status to sulfonamides; Z79.82 Long term (current) use of aspirin; Z79.899 Other long term (current) drug therapy; Z68.33 Body mass index [BMI] 33.0-33.9, adult
CPT/HCPCS: 36415; 36416; 71045; 80048; 83880; 84484; 85025; 93005; 94760; 96374; 96375; J0360; J1650; J1940; J2405; J3411; J7042

== ENCOUNTER 2019-05-16 10:31 | Inpatient (IN) | payer OTHER ==
[2019-05-16] MEDS ORDERED: Metoclopramide HCl 10 MG/2 ML VIAL ONE (10:59)
[2019-05-16 11:32] LABS: #Basophils 0.1 thou/uL (0.0-0.2); #Lymphocytes 1.6 thou/uL (1.20-3.40); #Monocytes 0.7 thou/uL (0.11-0.59); %Basophils 0.8 % (0.0-1.0); %Eosinophils 0.5 % (0.0-10.0); %Lymphocytes 24.6 % (21.0-51.0); %Monocytes 11.3 % (0.0-10.0); %Neutrophils 62.8 % (42.0-75.0); Hemoglobin 15.5 g/dL (14.0-18.0); Mean Corpuscular HGB CONC 34.3 g/dL (32.0-36.0); Mean Corpuscular Hemoglobin 32.8 pg (27.0-31.0); Mean Corpuscular Volume 95.5 fL (78.0-98.0); Platelet Count 158 thou/uL (130-400); RBC Distribution Width 11.5 % (11.5-14.5); Red Blood Cell (RBC) Count 4.75 mill/uL (4.70-6.10); White Blood Cell (WBC) Count 6.4 thou/uL (4.8-10.8)
[2019-05-16 12:08] LABS: ALT (SGPT) 166 U/L (8-55); AST (SGOT) 129 U/L (5-34); Albumin 4.6 g/dL (3.4-4.8); Alkaline Phosphatase 69 U/L (40-110); Anion Gap 26 mmol/L (10-20); BUN (Urea Nitrogen) 51 mg/dL (8.4-25.7); Calc. Creatinine Clearance 0 mL/min (70-130); Calcium 9.5 mg/dL (7.8-10.44); Carbon Dioxide 21 mmol/L (23-31); Chloride 90 mmol/L (98-107); Estimated GFR-MDRD 21; Globulin 3.8 g/dL (2.4-3.5); Glucose 87 mg/dL (80-115); Lipase 82 U/L (8-78); Protein, Total 8.4 g/dL (5.8-8.1); Sodium 132 mmol/L (136-145)
[2019-05-16 12:18] LABS: CKMB 1.8 ng/mL (0-6.6)
--- NOTE | 2019-05-16 12:33 | CT ---
EXAM: CT Abdomen Pelvis WO Con PROVIDED CLINICAL HISTORY: Nausea and vomiting COMPARISON: None FINDINGS: The visualized lung bases are free of significant opacity. Diffuse fatty infiltration of the liver is demonstrated. The solid abdominal organs are suboptimally evaluated in the absence of IV contrast material but demonstrate an otherwise unremarkable unenhanced CT appearance. There is moderate gallbladder distention without overt pericholecystic inflammatory change. There is no bowel dilatation, inflammatory fat stranding, free fluid or free air apparent. The appendix appears normal. Scattered vascular calcifications are seen. Sigmoid colonic diverticulosis is demonstrated without CT evidence for diverticulitis. The osseous structures demonstrate no concerning lytic or blastic lesions. IMPRESSION: 1. Nonspecific moderate gallbladder distention without overt pericholecystic inflammatory change. 2. Fatty infiltration of the liver.
--- NOTE | 2019-05-16 13:27 | ULT ---
GALLBLADDER ULTRASOUND: Date: 05/16/2019 HISTORY: Vomiting. Abnormal CT scan. FINDINGS: The liver demonstrates increased echogenicity consistent with fatty infiltration, but no focal mass o r intrahepatic ductal dilatation. The gallbladder is distended, measuring 12.0 cm in length, without shadowing gallstones, gallbladder wall thickening, or pericholecystic fluid. The common duct measures 4.0 mm in diameter. The pancreas is not well visualized due to overlying bowel gas. The right kidney is normal. No free fluid is seen in Morison's pouch. IMPRESSION: 1. Cholelithiasis. 2. Gallbladder distention without gallstones. POS: MZA
[2019-05-16 14:23] LABS: Bacteria/HPF None Seen HPF (None Seen); Bilirubin Negative (Negative); Blood, Urine Negative (Negative); Clarity Clear (Clear); Glucose, Urine (Dipstick) 30 mg/dL (Negative); Leukocyte Negative Leu/uL (Negative); Nitrite Negative (Negative); Protein, Urine (Dipstick) 30 mg/dL (Neg-Trace); RBC/HPF 0-3 HPF (0-3); Squamous Epithelial 0-3 HPF (0-3); Urobilinogen Normal mg/dL (Less than 2); WBC/HPF 0-3 HPF (0-3)
[2019-05-16 15:17] LABS: Troponin I 0.027 ng/mL (< 0.028)
[2019-05-16] MEDS ORDERED: Ondansetron ODT 4 MG TAB PO PRN (16:31)
[2019-05-16] MEDS ORDERED: Diazepam 5 MG TAB PO PRN (16:54)
--- NOTE | 2019-05-16 16:55 | PDOC.HHP ---
Hospitalist HPI - History of Present Illness Nausea and vomiting x 7 days History of Present Illness: PCP: Dr. Mark Moran The patient is a 64/M with PMH significant for alcohol abuse and CAD with 2 stents placed in March 2019 presents for the above complaint. The patient reports developing nausea and vomiting 7 days ago, only able to hold down fluids , such as gatorade and water. He admits to drinking 4oz vodka per day, denies any abdominal pain, hematemesis or diarrhea. Reports LBM 4 days ago, denies feeling constipated or bloated. Denies harjit stools or dark urine. Denies any recent unintentional weight loss. Denies any IV drug usage or risky sexual behaviors. Denies any dysuria, swelling to testicles or scrotum. Denies any chest pain or heart palpitations or SOB. Denies fever or chills. He has been taking zofran 8mg ODT once a day as prescribed with no relief of symptoms. He last vomited on admission. ED Course: VS T 98.6F, BP 132/69, HR 58, RR 16, Sp02 97% RA EKG NSR [address] abd/pelvis w/ contrast showed moderate gallbladder distention, no over pericholecystic inflammation or changes. He has fatty liver. GB US showed gallbladder distention, no gallbladder stones lipase 82 Bili 2.0 AST 129 ALT 166 ALP 69 Blood alcohol 148 troponins indeterminate x 2 Given 2L NS Reglan 10mg IVP with some relief of symptoms. Hospitalist ROS - Review of Systems Constitutional: denies: fever, chills, sweats, weakness, malaise, other Eyes: denies: pain, vision change, conjunctivae inflammation, eyelid inflammation, redness, other ENT: denies: ear pain, ear discharge, nose pain, nose discharge, nose congestion , mouth pain, mouth swelling, throat pain, throat swelling, other Respiratory: denies: cough, dry, shortness of breath, hemoptysis, SOB with excertion, pleuritic pain, sputum, wheezing, other Cardiovascular: denies: chest pain, palpitations, orthopnea, paroxysmal noc. dyspnea, edema, light headedness, other Gastrointestinal: reports: nausea, vomiting. denies: abdominal pain, diarrhea, constipation (LBM 4 days, decreased oral intake x 1 week), melena Genitourinary: denies: dysuria, frequency, incontinence, hematuria, retention, other Skin: denies: rash, lesions, luis, bruising, other Neurological: denies: weakness, numbness, incoordination, change in speech, confusion, seizures, other Hospitalist History - Past Medical History Source: patient Cardiac: reports: CAD (2 stents placed 03/[address] Devlin), HTN, Hyperlipidemia Psych: reports: Depression ENT: reports: Other (Deaf in right ear) - Past Surgical History Past Surgical History: reports: Other (CCL 03/2019 (stents x 2)) - Family History Family History: reports: no pertinent history (non contributory for alcholism, liver disease) - Social History Smoking Status: Never smoker Tobacco Type: chewing tobacco (Quit 14 days ago) Alcohol: reports: None, Heavy (4oz vodka per day) Drugs: reports: none Living Situation: Alone Occupation: Lives [facility], works for [employer] Activity level: independent ambulation - Exam General Appearance: NAD, awake alert Eye: anicteric sclera ENT: normocephalic atraumatic Neck: supple, no thyromegaly Heart: RRR, no murmur, no gallops, no rubs, normal peripheral pulses Respiratory: CTAB, no wheezes, no rales, no ronchi, no tachypnea Gastrointestinal: soft, non-tender, non-distended, no palpable masses, no bruit , no guarding, no rigidity Gastrointestinal - other findings: negative rovsing, esteban and mcburneys signs , no bruising or pulsatile mass Extremities: no cyanosis, no edema Skin: no rashes Neurological: no weakness, no focal deficits Musculoskeletal: normal tone, normal strength Psychiatric: normal affect, A&O x 3 Hospitalist Results - Labs Result Diagrams: 05/16/19 11:20 05/16/19 11:20 Lab results: WBC 6.4 thou/uL (4.8-10.8) 05/16/19 11:20 Hgb 15.5 g/dL (14.0-18.0) 05/16/19 11:20 Hct 45.3 % (42.0-52.0) 05/16/19 11:20 MCV 95.5 fL (78.0-98.0) 05/16/19 11:20 Plt Count 158 thou/uL (130-400) 05/16/19 11:20 Neutrophils % 62.8 % (42.0-75.0) 05/16/19 11:20 Sodium 132 mmol/L (136-145) L 05/16/19 11:20 Potassium 5.0 mmol/L (3.5-5.1) 05/16/19 11:20 Chloride 90 mmol/L (98-107) L 05/16/19 11:20 Carbon Dioxide 21 mmol/L (23-31) L 05/16/19 11:20 BUN 51 mg/dL (8.4-25.7) H 05/16/19 11:20 Creatinine 3.01 mg/dL (0.7-1.3) H 05/16/19 11:20 Glucose 87 mg/dL (80-115) 05/16/19 11:20 Calcium 9.5 mg/dL (7.8-10.44) 05/16/19 11:20 Total Bilirubin 2.0 mg/dL (0.2-1.2) H 05/16/19 11:20 AST 129 U/L (5-34) H 05/16/19 11:20 ALT 166 U/L (8-55) H 05/16/19 11:20 Alkaline Phosphatase 69 U/L (40-110) 05/16/19 11:20 CK-MB (CK-2) 1.8 ng/mL (0-6.6) 05/16/19 11:20 Troponin I 0.027 ng/mL (< 0.028) 05/16/19 14:36 Serum Total Protein 8.4 g/dL (5.8-8.1) H 05/16/19 11:20 Albumin 4.6 g/dL (3.4-4.8) 05/16/19 11:20 Lipase 82 U/L (8-78) H 05/16/19 11:20 Urine Ketones Trace mg/dL (Negative) A 05/16/19 13:43 Urine Blood Negative (Negative) 05/16/19 13:43 Urine Nitrite Negative (Negative) 05/16/19 13:43 Ur Leukocyte Esterase Negative Junior/uL (Negative) 05/16/19 13:43 Urine RBC 0-3 HPF (0-3) 05/16/19 13:43 Urine WBC 0-3 HPF (0-3) 05/16/19 13:43 Ur Squamous Epith Cells 0-3 HPF (0-3) 05/16/19 13:43 Urine Bacteria None Seen HPF (None Seen) 05/16/19 13:43 - EKG Interpretation EKG: NSR 60 bpm, flattened t waves - Radiology Interpretation CT scan - abdomen Status: report reviewed by me US - abdomen Status: report reviewed by me Hospitalist H&P A/P - Problem (1) Elevated LFTs Code(s): R79.89 - OTHER SPECIFIED ABNORMAL FINDINGS OF BLOOD CHEMISTRY Status : Acute Assessment and Plan: Admit to telemetry floor, inpatient status Expected stay at least 2 midnights Patient blood alcohol 148, CT abd/pelvis and RUQ US showed GB distention Order Hida Scan; await results for any consultations Check PT/INR, Hepatitis panel and Mag and phosphorus level CL liquid diet Recheck CMP in am (2) FELIPE (acute kidney injury) Code(s): N17.9 - ACUTE KIDNEY FAILURE, UNSPECIFIED Status: Acute Assessment and Plan: Creatinine 0.87 and GFR > 90 on 04/20/2019 Order Renal US IVF hydration Hold nephrotoxic medications, including Losartan/HCTZ Recheck CMP in am (3) Hyponatremia Code(s): E87.1 - HYPO-OSMOLALITY AND HYPONATREMIA Status: Acute Assessment and Plan: Mild, will recheck level in am (4) Alcohol abuse Code(s): F10.10 - ALCOHOL ABUSE, UNCOMPLICATED Status: Chronic Assessment and Plan: Last drink was yesterday 05/15/2019 per patient ASE protocol Alchohol abuse counseling Banana bag CL liquid diet Check mag, phosphorus, thiamine, folic acid and B12 level (5) CAD (coronary artery disease) Code(s): I25.10 - ATHSCL HEART DISEASE OF [place] CORONARY ARTERY W/O ANG PCTRS Status: Chronic Assessment and Plan: Taking ASA and brilinta as prescribed Will restart ASA and brilinta Will restart coreg, norvasc, catapres patch and atorvastatin. (6) HTN (hypertension) Code(s): I10 - ESSENTIAL (PRIMARY) HYPERTENSION Status: Chronic Assessment and Plan: Will hold losartan/HCTZ Will restart other antihypertensive home medications (7) HLD (hyperlipidemia) Code(s): E78.5 - HYPERLIPIDEMIA, UNSPECIFIED Status: Chronic Assessment and Plan: Will restart atorvastatin (8) Depression Code(s): F32.9 - MAJOR DEPRESSIVE DISORDER, SINGLE EPISODE, UNSPECIFIED Status : Chronic Assessment and Plan: Denies any SI/HI Will restart fluoxetine home medications (9) Tobacco abuse Code(s): Z72.0 - TOBACCO USE Status: Chronic Assessment and Plan: Reports quitting 14 days ago Will continue to retirement plan counselor for tobacco cessation - Plan Plan: Will start protonix for GI prophylaxis Will start heparin for DVT prophylaxis Full Code Gianluca MCNEIL at [phone]
[2019-05-16] MEDS ORDERED: Thiamine HCl 200 MG/2 ML VIAL IM SCH (17:00)
[2019-05-16 17:31] LABS: INR-International Normal Ratio 0.9; PTT 23.8 SEC (22.9-36.1); Prothrombin Time 12.3 SEC (12.0-14.7)
[2019-05-16 17:40] LABS: Phosphorus 4.2 mg/dL (2.3-4.7)
[2019-05-16 17:43] LABS: Amphetamine Not Detected (NotDetected); Barbiturates Screen Not Detected (NotDetected); Benzodiazepine Screen Not Detected (NotDetected); Cocaine Metabolite Screen Not Detected (NotDetected); Medtox Control Line Valid? VALID (VALID); Medtox Reader # READER 1; Methadone Not Detected (NotDetected); Methamphetamine Not Detected (NotDetected); Opiate Screen Not Detected (NotDetected); Oxycodone Screen Not Detected (NotDetected); Phencyclidine (PCP) Not Detected (NotDetected); THC/Cannabinoid Screen Not Detected (NotDetected); Tricyclic Screen Not Detected (NotDetected)
--- NOTE | 2019-05-16 19:25 | ULT ---
RENAL ULTRASOUND: 05/16/19 HISTORY: Acute kidney injury. COMPARISON: None. TECHNIQUE: Multiplanar weeks scale and color Doppler images were obtained in a renal ultrasound. FINDINGS: The kidneys are normal in echogenicity without hydronephrosis or calculi and measure 12.2 and 11.8 cm in length on the right and left, respectively. Limited visualization of the area of the bladder is u nremarkable. IMPRESSION: Unremarkable exam. POS: C
[2019-05-16] MEDS: Ondansetron PF 4 MG/2 ML Vial IVP PRN (20:50)
[2019-05-16] MEDS: Pantoprazole 40 MG VIAL IVP SCH (20:51)
[2019-05-16] MEDS: TICAGRELOR 90 MG TABLET PO SCH (20:52)
[2019-05-16] MEDS: Heparin 5,000 UNITS/ML VIAL SC SCH (20:52)
[2019-05-16] MEDS: Sodium Chloride 0.9% 1,000 ML IV SCH (20:53)
[2019-05-16] MEDS: Multivitamins, Adult 10 ML, Folic Acid 1 MG, Thiamine HCl 100 MG in Dextrose 5 %-0.45 %... IV SCH (20:53)
[2019-05-16] MEDS ORDERED: Atorvastatin Calcium 40 MG TAB PO SCH (21:00)
[2019-05-16] MEDS ORDERED: Labetalol HCl 100 MG/20 ML VIAL SLOW IVP PRN (23:37)
[2019-05-16] MEDS ORDERED: hydrALAZINE 20 MG/ML VIAL SLOW IVP PRN (23:37)
[2019-05-17] MEDS: Ondansetron PF 4 MG/2 ML Vial IVP PRN (03:22)
[2019-05-17] MEDS ORDERED: Diazepam 5 MG TAB PO PRN (04:00)
[2019-05-17] MEDS ORDERED: Promethazine HCl 25 MG/ML VIAL SLOW IVP SCH (04:00)
[2019-05-17] MEDS ORDERED: Scopolamine 1.5 mg/72 hour Patch TOP PRN (04:06)
[2019-05-17] MEDS: Sodium Chloride 0.9% 1,000 ML IV SCH ×3 (04:18→18:10)
[2019-05-17 04:38] LABS: Band 4 % (5-11); Eosinophils 2 % (0-10); Hemoglobin 15.4 g/dL (14.0-18.0); Lymphocytes 19 % (21-51); MDiff Complete? YES; Mean Corpuscular HGB CONC 35.7 g/dL (32.0-36.0); Mean Corpuscular Hemoglobin 34.2 pg (27.0-31.0); Mean Corpuscular Volume 95.8 fL (78.0-98.0); Mean Platelet Volume 7.7 fL (7.4-10.4); Monocytes 10 % (0-10); Neutrophil 65 % (42-75); Platelet Count 132 thou/uL (130-400); Platelet Morphology Comment Appears Adequate; RBC Distribution Width 11.1 % (11.5-14.5); Red Blood Cell (RBC) Count 4.52 mill/uL (4.70-6.10); White Blood Cell (WBC) Count 6.1 thou/uL (4.8-10.8)
[2019-05-17 04:47] LABS: ALT (SGPT) 144 U/L (8-55); AST (SGOT) 102 U/L (5-34); Albumin 4.4 g/dL (3.4-4.8); Alkaline Phosphatase 71 U/L (40-110); Anion Gap 19 mmol/L (10-20); BUN (Urea Nitrogen) 43 mg/dL (8.4-25.7); Calc. Creatinine Clearance 61 mL/min (70-130); Calcium 9.7 mg/dL (7.8-10.44); Carbon Dioxide 23 mmol/L (23-31); Chloride 94 mmol/L (98-107); Estimated GFR-MDRD 35; Globulin 3.2 g/dL (2.4-3.5); Glucose 125 mg/dL (80-115); Potassium 4.1 mmol/L (3.5-5.1); Protein, Total 7.6 g/dL (5.8-8.1); Sodium 132 mmol/L (136-145)
[2019-05-17 04:59] LABS: HBCM Index 0.07 S/CO (0-0.79); HBSAg Index 0.26 S/CO (0-0.99); Hep A IgM AB Non-Reactive (NonReactive); Hep A IgM S/CO 0.13 S/CO (0-0.79); Hep B Surf Ag Non-Reactive S/CO (NonReactive); Hep C IgG Ab Non-Reactive (NonReactive); Hep C Index 0.16 S/CO (0-0.79); Hepatitis B Core IgM Abs Non-Reactive (NonReactive)
[2019-05-17] MEDS: Thiamine 100 MG TAB PO SCH (08:09)
[2019-05-17] MEDS: Aspirin Chewable 81 MG TAB PO SCH (08:09)
[2019-05-17] MEDS: Folic Acid 1 MG TAB PO SCH (08:09)
[2019-05-17] MEDS: Carvedilol 6.25 MG TAB PO SCH (08:09)
[2019-05-17] MEDS: Multivitamin W/ Minerals 1 TAB PO SCH (08:09)
[2019-05-17] MEDS: Magnesium Oxide 400 MG TAB PO SCH (08:09)
[2019-05-17] MEDS: FLUoxetine HCl 20 MG CAP PO SCH (08:10)
[2019-05-17] MEDS: TICAGRELOR 90 MG TABLET PO SCH ×2 (08:10→21:18)
[2019-05-17] MEDS: Amlodipine 5 MG TAB PO SCH (08:10)
[2019-05-17] MEDS: Heparin 5,000 UNITS/ML VIAL SC SCH ×2 (08:10→21:17)
[2019-05-17] MEDS ORDERED: cloNIDine 0.2mg/24 Hour PATCH TD SCH (09:00)
[2019-05-17 12:14] VITALS: BMI 33.2
--- NOTE | 2019-05-17 13:54 | PDOC.HOSPP ---
- Subjective Encounter Date: 05/17/19 Encounter Time: 09:00 Subjective: pt up in bed denies any n/v. Had one episode last night. - Objective Vital Signs & Weight: Vital Signs (12 hours) Temp Pulse Pulse Pulse Resp BP BP 05/17/19 11:27 53 L 55 L 147/81 H 171/76 H 05/17/19 11:16 97.9 F 55 L 18 05/17/19 07:25 97.8 F 70 18 05/17/19 04:00 98.4 F 68 18 BP BP Pulse Ox 05/17/19 11:27 05/17/19 11:16 148/78 H 96 05/17/19 07:25 173/86 H 96 05/17/19 04:00 193/93 H 96 Weight Admit Weight 247 lb Weight 245 lb 1.6 oz I&O: 05/16/19 05/17/19 05/18/19 06:59 06:59 06:59 Intake Total 1868 Output Total 1700 Balance 168 Result Diagrams: 05/17/19 03:57 05/17/19 03:57 Hospitalist ROS - Review of Systems Respiratory: denies: cough, dry, shortness of breath, hemoptysis, SOB with excertion, pleuritic pain, sputum, wheezing, other Cardiovascular: denies: chest pain, palpitations, orthopnea, paroxysmal noc. dyspnea, edema, light headedness, other Gastrointestinal: denies: nausea, vomiting, abdominal pain, diarrhea, constipation, melena, hematochezia, other - Medication Medications: Active Medications Generic Name Dose Route Start Last Admin Trade Name Lele PRN Reason Stop Dose Admin Amlodipine Besylate 5 mg 05/17/19 09:00 05/17/19 08:10 Norvasc PO 5 mg DAILY SCOOTER Administration Aspirin 81 mg 05/17/19 09:00 05/17/19 08:09 Aspirin Chewable PO 81 mg DAILY SCOOTER Administration Carvedilol 12.5 mg 05/17/19 09:00 05/17/19 08:09 Coreg PO 12.5 mg DAILY SCOOTER Administration Clonidine 0.2 mg 05/17/19 09:00 05/17/19 08:10 Pbuslirr-Zfi-0 TD 0.2 mg Fr@0900 SCOOTER Administration Fluoxetine HCl 20 mg 05/17/19 09:00 05/17/19 08:10 Prozac PO 20 mg DAILY SCOOTER Administration Folic Acid 1 mg 05/17/19 09:00 05/17/19 08:09 Folvite PO 1 mg DAILY SCOOTER Administration Heparin Sodium (Porcine) 5,000 units 05/16/19 21:00 05/17/19 08:10 Heparin SC 5,000 units BID SCOOTER Administration Hydralazine HCl 10 mg 05/16/19 23:37 05/16/19 23:51 Apresoline SLOW IVP 10 mg Q4H PRN Administration SBP > 180 or DBP > 105 Multivitamins 10 ml/ Folic 1,011.2 mls @ 75 mls/hr 05/16/19 17:00 05/16/19 20 :53 Acid 1 mg/ Thiamine HCl 100 mg IV 1,011.2 mls / Dextrose/Sodium Chloride Q24HR SCOOTER Administration Sodium Chloride 1,000 mls @ 125 mls/hr 05/16/19 16:45 05/17/19 04:18 Normal Saline 0.9% IV 1,000 mls .Q8H SCOOTER Administration Iron/Minerals/Multivitamins 1 tab 05/17/19 09:00 05/17/19 08:09 Theragran M PO 1 tab DAILY SCOOTER Administration Magnesium Oxide 400 mg 05/17/19 09:00 05/17/19 08:09 Magnesium Oxide PO 400 mg DAILY SCOOTER Administration Ondansetron HCl 4 mg 05/16/19 16:31 05/17/19 03:22 Zofran IVP 4 mg Q6H PRN Administration Nausea/Vomiting Pantoprazole Sodium 40 mg 05/16/19 21:00 05/16/19 20:51 Protonix IVP 40 mg HS SCOOTER Administration Scopolamine 1.5 mg 05/17/19 04:06 05/17/19 04:12 Transderm Scop TOP 1.5 mg Q3D PRN Administration Nausea Thiamine HCl 100 mg 05/17/19 09:00 05/17/19 08:09 Thiamine PO 100 mg DAILY SCOOTER Administration Ticagrelor 90 mg 05/16/19 21:00 05/17/19 08:10 Brilinta PO 90 mg BID SCOOTER Administration - Exam Neck: negative: supple, symmetric, no JVD, no thyromegaly, no lymphadenopathy, no carotid bruit, JVD Heart: negative: RRR, no murmur, no gallops, no rubs, normal peripheral pulses, irregular, diminshed peripheral pulses, murmur present, II/IV, III/IV Respiratory: negative: CTAB, no wheezes, no rales, no ronchi, normal chest expansion, no tachypnea, normal percussion, rales, rhonchi, tachypneic, wheezes Gastrointestinal: soft, non-distended Hosp A/P (1) Nausea & vomiting Code(s): R11.2 - NAUSEA WITH VOMITING, UNSPECIFIED Status: Acute (2) FELIPE (acute kidney injury) Code(s): N17.9 - ACUTE KIDNEY FAILURE, UNSPECIFIED Status: Acute (3) Elevated LFTs Code(s): R79.89 - OTHER SPECIFIED ABNORMAL FINDINGS OF BLOOD CHEMISTRY Status : Acute (4) Alcohol abuse Code(s): F10.10 - ALCOHOL ABUSE, UNCOMPLICATED Status: Chronic (5) CAD (coronary artery disease) Code(s): I25.10 - ATHSCL HEART DISEASE OF [place] CORONARY ARTERY W/O ANG PCTRS Status: Chronic (6) HLD (hyperlipidemia) Code(s): E78.5 - HYPERLIPIDEMIA, UNSPECIFIED Status: Chronic (7) Fatty infiltration of liver Code(s): K76.0 - FATTY (CHANGE OF) LIVER, NOT ELSEWHERE CLASSIFIED Status: Acute - Plan pt's alk phos is normal, his lfts are still elevated. alt >ast, will get hida scan to make sure its not his gall bladder but he has no pain. His elevated lfts could be due to alcohol use. unlikely to be alcoholic hepatitis since his alt is > ast. will advance his diet. pancreatitis is also a possibility but mild elevated lipase no abd pain and mild elevated lipase. will hold off on statin. will continue his asa/brilianta.
--- NOTE | 2019-05-17 15:20 | NM ---
Radionucleotide hepatobiliary scan and gallbladder ejection fraction HISTORY: Right upper quadrant pain. FINDINGS: Physiologic uptake of radiotracer throughout the hepatic parenchyma. Gallbladder first imag ed at 10 minutes. Uptake within the small bowel is very difficult to visualized at 60 minutes. After administration of CCK analog IV, there is very little excretion of radiotracer from the gallbla dder to the small bowel. Ejection fraction calculated at 16%. IMPRESSION : Abnormal gallbladder ejection fraction. Evidence of chronic gallbladder dyskinesis.
[2019-05-17] MEDS: Multivitamins, Adult 10 ML, Folic Acid 1 MG, Thiamine HCl 100 MG in Dextrose 5 %-0.45 %... IV SCH (17:11)
[2019-05-17] MEDS: Pantoprazole 40 MG VIAL IVP SCH (21:17)
[2019-05-18] MEDS: Sodium Chloride 0.9% 1,000 ML IV SCH ×3 (00:31→13:28)
[2019-05-18] MEDS: Amlodipine 5 MG TAB PO SCH (08:09)
[2019-05-18] MEDS: Carvedilol 6.25 MG TAB PO SCH (08:09)
[2019-05-18] MEDS: Magnesium Oxide 400 MG TAB PO SCH (08:09)
[2019-05-18] MEDS: Multivitamin W/ Minerals 1 TAB PO SCH (08:10)
[2019-05-18] MEDS: TICAGRELOR 90 MG TABLET PO SCH ×2 (08:10→20:23)
[2019-05-18] MEDS: Aspirin Chewable 81 MG TAB PO SCH (08:10)
[2019-05-18] MEDS: FLUoxetine HCl 20 MG CAP PO SCH (08:10)
[2019-05-18] MEDS: Thiamine 100 MG TAB PO SCH (08:10)
[2019-05-18] MEDS: Folic Acid 1 MG TAB PO SCH (08:10)
[2019-05-18] MEDS: Heparin 5,000 UNITS/ML VIAL SC SCH ×2 (08:11→20:22)
[2019-05-18 09:55] LABS: ALT (SGPT) 251 U/L (8-55); AST (SGOT) 233 U/L (5-34); Albumin 4.2 g/dL (3.4-4.8); Alkaline Phosphatase 71 U/L (40-110); Anion Gap 13 mmol/L (10-20); BUN (Urea Nitrogen) 26 mg/dL (8.4-25.7); Bilirubin, Total 2.3 mg/dL (0.2-1.2); Calc. Creatinine Clearance 69 mL/min (70-130); Calcium 9.9 mg/dL (7.8-10.44); Carbon Dioxide 31 mmol/L (23-31); Chloride 95 mmol/L (98-107); Estimated GFR-MDRD 40; Globulin 3.1 g/dL (2.4-3.5); Glucose 142 mg/dL (80-115); Potassium 4.6 mmol/L (3.5-5.1); Protein, Total 7.3 g/dL (5.8-8.1); Sodium 134 mmol/L (136-145)
[2019-05-18] MEDS: hydrALAZINE 25 MG TAB PO SCH ×3 (10:07→20:23)
--- NOTE | 2019-05-18 11:15 | CON ---
DATE OF CONSULTATION: 05/18/2019 REASON FOR CONSULTATION: Gallbladder disease. HISTORY OF PRESENT ILLNESS: This is a 64-year-old man who came to the hospital with nausea and vomiting and inability to hold his oral intake. During the process of evaluation, he had imaging studies and nuclear medicine study which indicates the presence of cholelithiasis. His symptoms have resolved. He has not had any more nausea or vomiting. He has no abdominal pain. His lab studies do show some elevation of his liver function studies, however he also has significant history of alcohol intake. PAST MEDICAL HISTORY: His past history is remarkable for coronary artery disease with coronary artery stents placed in March of 2019. He also has a history of hyperlipidemia and hypertension as well as some depression. FAMILY HISTORY: He has no significant family history. SOCIAL HISTORY: He quit chewing tobacco. He does have a history of alcohol use. He lives alone and is independent in his care. PRIMARY CARE PHYSICIAN: Dr. Moran. MEDICATIONS: 1. Amlodipine. 2. Aspirin. 3. Coreg. 4. Clonidine. PHYSICAL EXAMINATION: GENERAL: He is alert, oriented. He appears to be in no distress. VITAL SIGNS: Blood pressure 180/90, pulse 58. HEAD, EYES, EARS, NOSE, AND THROAT: Grossly unremarkable. CHEST: Clear. ABDOMEN: Soft and nontender. No masses. Normal bowel sounds. LABORATORY DATA: Hemoglobin 15.4 g, hematocrit 43.3%, white count 16,100, platelet count 132,000. Protime 12.3, INR 0.9, PTT 23.8. Electrolytes are normal. BUN 26, creatinine 1.73, glucose 142. His bilirubin is 2.3. AST is 233 and ALT 251 with an alkaline phophatase of 71. His albumin is 4.2. Reports from the CT scan and HIDA scan were reviewed. Does have gallstones, but there is indication of acute cholecystitis. IMPRESSION: He does have biliary tract disease as well as other significant medical problems. He does not require emergent cholecystectomy, but it should be considered at some point in the future. RECOMMENDATIONS: The liver function studies should be followed. Alcohol cessation should be strongly recommended to him. Consideration of cholecystectomy in the future is recommended. Job ID: [id number]
--- NOTE | 2019-05-18 13:50 | PDOC.HOSPP ---
- Subjective Encounter Date: 05/18/19 Encounter Time: 10:15 Subjective: pt up in bed feels well no n/v - Objective Vital Signs & Weight: Vital Signs (12 hours) Temp Pulse Pulse Pulse Resp BP BP 05/18/19 12:52 56 L 53 L 149/72 H 05/18/19 11:05 98.4 F 59 L 16 143/83 H 05/18/19 10:07 58 L 180/91 H 05/18/19 08:09 58 L 180/91 H 05/18/19 08:00 180/91 H 05/18/19 07:15 98.7 F 58 L 18 05/18/19 03:51 98.1 F 61 14 BP BP BP Pulse Ox 05/18/19 12:52 135/65 05/18/19 11:05 143/83 H 98 05/18/19 10:07 05/18/19 08:09 05/18/19 08:00 05/18/19 07:15 180/91 H 98 05/18/19 03:51 145/87 H 97 Weight Admit Weight 247 lb Weight 242 lb 12.8 oz I&O: 05/17/19 05/18/19 05/19/19 06:59 06:59 06:59 Intake Total 1868 3250 Output Total 1700 3525 Balance 168 -275 Result Diagrams: 05/17/19 03:57 05/18/19 09:25 Hospitalist ROS - Review of Systems Respiratory: denies: cough, dry, shortness of breath, hemoptysis, SOB with excertion, pleuritic pain, sputum, wheezing, other Cardiovascular: denies: chest pain, palpitations, orthopnea, paroxysmal noc. dyspnea, edema, light headedness, other Gastrointestinal: denies: nausea, vomiting, abdominal pain, diarrhea, constipation, melena, hematochezia, other Genitourinary: denies: dysuria, frequency, incontinence, hematuria, retention, other - Medication Medications: Active Medications Generic Name Dose Route Start Last Admin Trade Name Freq PRN Reason Stop Dose Admin Aspirin 81 mg 05/17/19 09:00 05/18/19 08:10 Aspirin Chewable PO 81 mg DAILY SCOOTER Administration Carvedilol 12.5 mg 05/17/19 09:00 05/18/19 08:09 Coreg PO 12.5 mg DAILY SCOOTER Administration Clonidine 0.2 mg 05/17/19 09:00 05/17/19 08:10 Ofhovmps-Zny-0 TD 0.2 mg Fr@0900 SCOOTER Administration Fluoxetine HCl 20 mg 05/17/19 09:00 05/18/19 08:10 Prozac PO 20 mg DAILY SCOOTER Administration Folic Acid 1 mg 05/17/19 09:00 05/18/19 08:10 Folvite PO 1 mg DAILY SCOOTER Administration Heparin Sodium (Porcine) 5,000 units 05/16/19 21:00 05/18/19 08:11 Heparin SC 5,000 units BID SCOOTER Administration Hydralazine HCl 10 mg 05/16/19 23:37 05/16/19 23:51 Apresoline SLOW IVP 10 mg Q4H PRN Administration SBP > 180 or DBP > 105 Hydralazine HCl 25 mg 05/18/19 09:00 05/18/19 10:07 Apresoline PO Not Given TID SCOOTER Multivitamins 10 ml/ Folic 1,011.2 mls @ 75 mls/hr 05/16/19 17:00 05/17/19 17 :11 Acid 1 mg/ Thiamine HCl 100 mg IV 1,011.2 mls / Dextrose/Sodium Chloride Q24HR SCOOTER Administration Sodium Chloride 1,000 mls @ 125 mls/hr 05/16/19 16:45 05/18/19 13:28 Normal Saline 0.9% IV 1,000 mls .Q8H SCOOTER Administration Iron/Minerals/Multivitamins 1 tab 05/17/19 09:00 05/18/19 08:10 Theragran M PO 1 tab DAILY SCOOTER Administration Magnesium Oxide 400 mg 05/17/19 09:00 05/18/19 08:09 Magnesium Oxide PO 400 mg DAILY SCOOTER Administration Ondansetron HCl 4 mg 05/16/19 16:31 05/17/19 03:22 Zofran IVP 4 mg Q6H PRN Administration Nausea/Vomiting Pantoprazole Sodium 40 mg 05/16/19 21:00 05/17/19 21:17 Protonix IVP 40 mg HS SCOOTER Administration Sodium Chloride 10 ml 05/16/19 16:31 05/17/19 21:16 Flush - Normal Saline IVF 10 ml Q12H PRN Administration Saline Flush Thiamine HCl 100 mg 05/17/19 09:00 05/18/19 08:10 Thiamine PO 100 mg DAILY SCOOTER Administration Ticagrelor 90 mg 05/16/19 21:00 05/18/19 08:10 Brilinta PO 90 mg BID SCOOTER Administration - Exam Neck: negative: supple, symmetric, no JVD, no thyromegaly, no lymphadenopathy, no carotid bruit, JVD Heart: negative: RRR, no murmur, no gallops, no rubs, normal peripheral pulses, irregular, diminshed peripheral pulses, murmur present, II/IV, III/IV Respiratory: negative: CTAB, no wheezes, no rales, no ronchi, normal chest expansion, no tachypnea, normal percussion, rales, rhonchi, tachypneic, wheezes Gastrointestinal: negative: soft, non-tender, non-distended, normal bowel sounds , no palpable masses, no hepatomegaly, no splenomegaly, no bruit, no guarding, no rigidity, tender to palpation, distended, diminished bowl sounds, voluntary guarding Hosp A/P (1) Nausea & vomiting Code(s): R11.2 - NAUSEA WITH VOMITING, UNSPECIFIED Status: Acute (2) FELIPE (acute kidney injury) Code(s): N17.9 - ACUTE KIDNEY FAILURE, UNSPECIFIED Status: Acute (3) Elevated LFTs Code(s): R79.89 - OTHER SPECIFIED ABNORMAL FINDINGS OF BLOOD CHEMISTRY Status : Acute (4) Alcohol abuse Code(s): F10.10 - ALCOHOL ABUSE, UNCOMPLICATED Status: Chronic (5) CAD (coronary artery disease) Code(s): I25.10 - ATHSCL HEART DISEASE OF [place] CORONARY ARTERY W/O ANG PCTRS Status: Chronic (6) HLD (hyperlipidemia) Code(s): E78.5 - HYPERLIPIDEMIA, UNSPECIFIED Status: Chronic (7) Fatty infiltration of liver Code(s): K76.0 - FATTY (CHANGE OF) LIVER, NOT ELSEWHERE CLASSIFIED Status: Acute - Plan pt's alk phos is normal, his lfts are still elevated. alt >ast, will get hida scan to make sure its not his gall bladder but he has no pain. His elevated lfts could be due to alcohol use. unlikely to be alcoholic hepatitis since his alt is > ast. will advance his diet. pancreatitis is also a possibility but mild elevated lipase no abd pain and mild elevated lipase. will hold off on statin. will continue his asa/brilianta. 05/17 no surgical intervention per surgery, pt has no abs pain, n or vomiting. will advance diet if he tolerates and if his lfts improve possible discharge in am. will hold his statin for now. He has been advised against alcohol use and to eat a low fat diet.
[2019-05-18] MEDS: Multivitamins, Adult 10 ML, Folic Acid 1 MG, Thiamine HCl 100 MG in Dextrose 5 %-0.45 %... IV SCH (16:49)
[2019-05-18] MEDS: Pantoprazole 40 MG VIAL IVP SCH (20:23)
[2019-05-19] MEDS: Sodium Chloride 0.9% 1,000 ML IV SCH (03:57)
[2019-05-19 04:49] LABS: ALT (SGPT) 291 U/L (8-55); AST (SGOT) 234 U/L (5-34); Alkaline Phosphatase 67 U/L (40-110); Anion Gap 13 mmol/L (10-20); BUN (Urea Nitrogen) 17 mg/dL (8.4-25.7); Bilirubin, Total 1.3 mg/dL (0.2-1.2); Calc. Creatinine Clearance 96 mL/min (70-130); Calcium 9.5 mg/dL (7.8-10.44); Carbon Dioxide 25 mmol/L (23-31); Chloride 100 mmol/L (98-107); Estimated GFR-MDRD 59; Globulin 3.2 g/dL (2.4-3.5); Glucose 104 mg/dL (80-115); Potassium 4.8 mmol/L (3.5-5.1); Protein, Total 7.2 g/dL (5.8-8.1); Sodium 133 mmol/L (136-145)
[2019-05-19] MEDS: Heparin 5,000 UNITS/ML VIAL SC SCH (07:57)
[2019-05-19] MEDS: TICAGRELOR 90 MG TABLET PO SCH (07:57)
[2019-05-19] MEDS: Magnesium Oxide 400 MG TAB PO SCH (07:57)
[2019-05-19] MEDS: Aspirin Chewable 81 MG TAB PO SCH (07:57)
[2019-05-19] MEDS: Folic Acid 1 MG TAB PO SCH (07:58)
[2019-05-19] MEDS: Multivitamin W/ Minerals 1 TAB PO SCH (07:58)
[2019-05-19] MEDS: FLUoxetine HCl 20 MG CAP PO SCH (07:58)
[2019-05-19] MEDS: Carvedilol 6.25 MG TAB PO SCH (07:58)
[2019-05-19] MEDS: Thiamine 100 MG TAB PO SCH (07:58)
[2019-05-19] MEDS: hydrALAZINE 25 MG TAB PO SCH (07:59)
[2019-05-19] MEDS ORDERED: Hydrochlorothiazide 25 MG TAB PO SCH (09:00)
[2019-05-19] MEDS ORDERED: Amlodipine 10 MG TAB PO SCH (09:00)
[2019-05-19 09:03] VITALS: BP 156/73; TEMP 97.9
--- NOTE | 2019-05-19 17:57 | DIS ---
DATE OF ADMISSION: 05/16/2019 DATE OF DISCHARGE: 05/19/2019 DISCHARGE DIAGNOSES: As of the followin. Nausea and vomiting. 2. Acute kidney injury, resolved, most likely secondary to dehydration. 3. Elevated liver function tests. 4. Alcohol abuse. 5. Coronary artery disease. 6. Hyperlipidemia. 7. Fatty infiltrate of the liver. HOSPITAL COURSE: The patient is a very pleasant 64-year-old male, who initially presented to the hospital with nausea and vomiting. He did undergo a CT of abdomen and pelvis and an abdominal ultrasound. CT of abdomen and pelvis indicated moderate gallbladder distention without any pericholecystic inflammatory changes and fatty infiltrate. He also had an abdominal ultrasound, which indicated that the common bile duct was just 4 mm. However, he did have some gallbladder distention and cholelithiasis. He did then undergo a HIDA scan, which indicated some chronic gallbladder dyskinesis with EF of 16%. At this time, Surgery was consulted and recommended outpatient followup. No urgent emergent need for surgical intervention. The patient initially did have an elevated bilirubin, AST, and ALT. He did not have a picture of alcoholic hepatitis, but based on his ALT greater than AST and elevated bilirubin, most likely a combination of alcohol induced and fatty liver. His bilirubin improved dramatically. He was able to tolerate his oral meals without any issues and complications. He was then discharged home. He will follow up with his primary. His creatinine initially was 3 and then resolved to his baseline around 1.24. He will be discharged home. He will follow up with his primary. I have held his statin and also his lisinopril for now. I have told him to restart the lisinopril probably Monday. I have given him some other additional blood pressure medications in the meantime. He will continue his aspirin and Brilinta. HOME MEDICATIONS: 1. Norvasc 10 mg daily, which I increased from 5 mg. 2. Hydralazine 50 mg twice a day. 3. Aspirin 81 mg daily. 4. Carvedilol 12.5 daily. 5. Prozac 20 mg daily. 6. Hydrochlorothiazide and losartan will be started on Monday. 7. Thiamine 100 mg daily. 8. Brilinta 90 mg b.i.d. given his recent CAD and stents. 9. Clonidine 0.1 b.i.d. p.r.n. 10. Also, he has a patch 0.2 every 7 days. PHYSICAL EXAMINATION: VITAL SIGNS: Temperature of 97.9, pulse 57, respirations 20, oxygen saturation 96% on room air, blood pressure 156/73. GENERAL: He is awake, alert, and oriented x3. He does not appear in distress. CARDIOVASCULAR: S1 and S2 present. No murmurs, rubs, or gallops. Again, he will follow up with his primary. I have also told him to get a liver function test next week. He stated that he will follow up with Dr. Moran. Job ID: [id number]
== END 2019-05-19 13:05 | disposition home or self-care (01) | DRG 683 ==
LOC: ERS 10:31 → 2NO 13:49
PROVIDERS: ADMIT Internal Medicine; ATTEND Internal Medicine
DX: N17.9 Acute kidney failure, unspecified (principal); E87.1 Hypo-osmolality and hyponatremia; E86.0 Dehydration; R79.89 Other specified abnormal findings of blood chemistry; F10.10 Alcohol abuse, uncomplicated; I25.10 Atherosclerotic heart disease of native coronary artery without angina pectoris; E78.5 Hyperlipidemia, unspecified; K76.0 Fatty (change of) liver, not elsewhere classified; K80.20 Calculus of gallbladder without cholecystitis without obstruction; F32.9 Major depressive disorder, single episode, unspecified; F17.220 Nicotine dependence, chewing tobacco, uncomplicated; H91.91 Unspecified hearing loss, right ear; E66.01 Morbid (severe) obesity due to excess calories; I10 Essential (primary) hypertension; Z95.5 Presence of coronary angioplasty implant and graft; Z88.2 Allergy status to sulfonamides
CPT/HCPCS: 36415; 74176; 76705; 76770; 78227; 80053; 80074; 80306; 80307; 81003; 81015; 82248; 82553; 82607; 82746; 83690; 83735; 84100; 84425; 84484; 85025; 85610; 85730; 93005; 96361; 96374; A9537; C9113; J0360; J1644; J2405; J2550; J2765; J3411; J3475; J3490; J7042

== ENCOUNTER 2019-07-28 20:34 | Inpatient (IN) | payer OTHER ==
[~2019-07-28 20:34] MED LIST changes: -Iopamidol 370 76% 100 ML VIAL ONE; +Iopamidol-370 76% 500 ML 1 ML ONE
[2019-07-28 21:16] LABS: #Basophils 0.1 thou/uL (0.0-0.2); #Eosinphils 0.1 thou/uL (0.0-0.7); #Lymphocytes 2.6 thou/uL (1.20-3.40); #Monocytes 0.6 thou/uL (0.11-0.59); #Neutrophils 2.5 thou/uL (1.40-6.50); %Basophils 2.3 % (0.0-1.0); %Eosinophils 0.9 % (0.0-10.0); %Lymphocytes 44.5 % (21.0-51.0); %Monocytes 10.4 % (0.0-10.0); Hemoglobin 14.5 g/dL (14.0-18.0); Mean Corpuscular HGB CONC 32.5 g/dL (32.0-36.0); Mean Corpuscular Hemoglobin 33.6 pg (27.0-31.0); Mean Platelet Volume 6.9 fL (7.4-10.4); Platelet Count 219 thou/uL (130-400); RBC Distribution Width 13.9 % (11.5-14.5); Red Blood Cell (RBC) Count 4.31 mill/uL (4.70-6.10); White Blood Cell (WBC) Count 5.9 thou/uL (4.8-10.8)
[2019-07-28 21:28] LABS: ALT (SGPT) 203 U/L (8-55); AST (SGOT) 247 U/L (5-34); Albumin 4.2 g/dL (3.4-4.8); Alkaline Phosphatase 72 U/L (40-110); Anion Gap 23 mmol/L (10-20); BUN (Urea Nitrogen) 11 mg/dL (8.4-25.7); Bilirubin, Total 0.8 mg/dL (0.2-1.2); CK (CPK) 110 U/L (30-200); Calc. Creatinine Clearance 0 mL/min (70-130); Calcium 8.6 mg/dL (7.8-10.44); Carbon Dioxide 20 mmol/L (23-31); Chloride 101 mmol/L (98-107); Estimated GFR-MDRD Greater than 90; Glucose 83 mg/dL (80-115); Lipase 49 U/L (8-78); Potassium 3.6 mmol/L (3.5-5.1); Protein, Total 7.2 g/dL (5.8-8.1); Sodium 140 mmol/L (136-145)
--- NOTE | 2019-07-28 21:32 | RAD ---
RADIOGRAPH CHEST 1 VIEW: DATE: 07/28/2019 HISTORY: 64-year-old male with atrial fibrillation and right-sided chest pain FINDINGS: There are no airspace densities, pulmonary edema, pneumothorax, or cardiomegaly. The lateral costophr enic angles are sharp. IMPRESSION: No acute cardiopulmonary findings.
[2019-07-28 21:49] LABS: CKMB 1.5 ng/mL (0-6.6)
[2019-07-28 21:52] LABS: Acetaminophen Less than 6.0 mcg/mL (10.0-30.0); Alcohol 259 mg/dL (Less than 10); Salicylate Less than 8.0 mg/dL (15.0-30.0)
[2019-07-28 22:05] LABS: Bacteria/HPF None Seen HPF (None Seen); Bilirubin Negative (Negative); Blood, Urine Negative (Negative); Clarity Clear (Clear); Glucose, Urine (Dipstick) Normal (Negative); Leukocyte Negative Leu/uL (Negative); Mucous/LPF 2+ LPF (<2+); Nitrite Negative (Negative); Protein, Urine (Dipstick) 50 mg/dL (Neg-Trace); RBC/HPF 0-3 HPF (0-3); Squamous Epithelial None Seen HPF (0-3); Urobilinogen 6 mg/dL (Less than 2); WBC/HPF 0-3 HPF (0-3)
[2019-07-28 22:11] LABS: Amphetamine Not Detected (NotDetected); Barbiturates Screen Not Detected (NotDetected); Benzodiazepine Screen Detected (NotDetected); Cocaine Metabolite Screen Not Detected (NotDetected); Medtox Control Line Valid? VALID (VALID); Medtox Reader # READER 4; Methadone Not Detected (NotDetected); Methamphetamine Not Detected (NotDetected); Opiate Screen Not Detected (NotDetected); Oxycodone Screen Not Detected (NotDetected); Phencyclidine (PCP) Not Detected (NotDetected); THC/Cannabinoid Screen Not Detected (NotDetected); Tricyclic Screen Not Detected (NotDetected)
[2019-07-28] MEDS ORDERED: Diltiazem 125 MG/25 ML ONE (23:13)
[2019-07-28] MEDS ORDERED: HYDROcodone/Acetaminophen 5/325 mg Tablet PO PRN (23:33)
[2019-07-28] MEDS ORDERED: Morphine 2 MG/ML SYRINGE SLOW IVP PRN (23:33)
[2019-07-28] MEDS ORDERED: Acetaminophen 650 MG Suppository PR PRN (23:33)
[2019-07-28] MEDS ORDERED: Ondansetron ODT 4 MG TAB PO PRN (23:33)
[2019-07-28] MEDS ORDERED: Acetaminophen 325 MG TAB PO PRN (23:33)
[2019-07-28] MEDS ORDERED: Ondansetron PF 4 MG/2 ML Vial IVP PRN (23:33)
--- NOTE | 2019-07-28 23:43 | PDOC.HHP ---
Hospitalist HPI - History of Present Illness nause and vomiting History of Present Illness: Case of an 64y/o male with pmhx of cad s/p stent x2 on 03/2019, hypercholesterolemia and htn who comes to hospital due to 3-4 days of intractable nausea, vomiting and abdominal pain. patient refers he had a recent admission with similar symptoms on 05/2019 and diagnosed with cholelithiasis and sent home because the elective surgeries where placed on hold due to covid 19. at initial evaluation patient presented with afib in rvr for which hospitalist was consulted for further evaluation and management. patient denies any chest pain palpitations or diaphoresis, also denies diarrhea changes in bowel habist or color of stool. patient describers pain as rlq 7/10 non radiating Hospitalist ROS - Review of Systems All other systems reviewed; all pertinent +/- noted in HPI/Subj Hospitalist History - Past Medical History Cardiac: reports: CAD, HTN, Hyperlipidemia Psych: reports: Depression - Past Surgical History Past Surgical History: reports: no pertinent history, Other (CCL 03/2019 (stents x 2)) - Family History Family History: reports: no pertinent history - Social History Smoking Status: Current some day smoker Alcohol: reports: None, Heavy (4oz vodka per day) Drugs: reports: none Occupation: Lives [facility], works for [employer] - Exam General Appearance: awake alert Eye: PERRL, anicteric sclera ENT: normocephalic atraumatic, no oropharyngeal lesions Neck: supple, symmetric, no JVD Heart: irregular Heart - other findings: tachycardic Respiratory: CTAB, no wheezes, no rales Gastrointestinal: soft, non-distended, normal bowel sounds, tender to palpation Extremities: no cyanosis, no clubbing, no edema Skin: normal turgor, no lesions, no rashes Neurological: cranial nerve grossly intact, normal sensation to touch Musculoskeletal: normal tone, normal strength Psychiatric: normal affect, normal behavior, A&O x 3 Hospitalist Results - Labs Result Diagrams: 07/28/19 20:59 07/28/19 20:59 Lab results: WBC 5.9 thou/uL (4.8-10.8) 07/28/19 20:59 Hgb 14.5 g/dL (14.0-18.0) 07/28/19 20:59 Hct 44.5 % (42.0-52.0) 07/28/19 20:59 MCV 103.0 fL (78.0-98.0) H 07/28/19 20:59 Plt Count 219 thou/uL (130-400) 07/28/19 20:59 Neutrophils % 42.0 % (42.0-75.0) 07/28/19 20:59 Sodium 140 mmol/L (136-145) 07/28/19 20:59 Potassium 3.6 mmol/L (3.5-5.1) 07/28/19 20:59 Chloride 101 mmol/L (98-107) 07/28/19 20:59 Carbon Dioxide 20 mmol/L (23-31) L 07/28/19 20:59 BUN 11 mg/dL (8.4-25.7) 07/28/19 20:59 Creatinine 0.74 mg/dL (0.7-1.3) 07/28/19 20:59 Glucose 83 mg/dL (80-115) 07/28/19 20:59 Calcium 8.6 mg/dL (7.8-10.44) 07/28/19 20:59 Total Bilirubin 0.8 mg/dL (0.2-1.2) 07/28/19 20:59 AST 247 U/L (5-34) H 07/28/19 20:59 ALT 203 U/L (8-55) H 07/28/19 20:59 Alkaline Phosphatase 72 U/L (40-110) 07/28/19 20:59 Creatine Kinase 110 U/L (30-200) 07/28/19 20:59 CK-MB (CK-2) 1.5 ng/mL (0-6.6) 07/28/19 21:01 Troponin I 0.041 ng/mL (< 0.028) H 07/28/19 21:01 Serum Total Protein 7.2 g/dL (5.8-8.1) 07/28/19 20:59 Albumin 4.2 g/dL (3.4-4.8) 07/28/19 20:59 Lipase 49 U/L (8-78) 07/28/19 20:59 Urine Ketones 10 mg/dL (Negative) A 07/28/19 21:40 Urine Blood Negative (Negative) 07/28/19 21:40 Urine Nitrite Negative (Negative) 07/28/19 21:40 Ur Leukocyte Esterase Negative Junior/uL (Negative) 07/28/19 21:40 Urine RBC 0-3 HPF (0-3) 07/28/19 21:40 Urine WBC 0-3 HPF (0-3) 07/28/19 21:40 Ur Squamous Epith Cells None Seen HPF (0-3) 07/28/19 21:40 Urine Bacteria None Seen HPF (None Seen) 07/28/19 21:40 - Radiology Interpretation CT scan - abdomen Additional Comment: gallbladder distention Chest x-ray Additional Comment: no acute pathology Hospitalist H&P A/P - Problem (1) Atrial fibrillation, new onset Code(s): I48.91 - UNSPECIFIED ATRIAL FIBRILLATION Status: Acute (2) Nausea & vomiting Code(s): R11.2 - NAUSEA WITH VOMITING, UNSPECIFIED Status: Acute (3) Alcohol abuse Code(s): F10.10 - ALCOHOL ABUSE, UNCOMPLICATED Status: Chronic (4) CAD (coronary artery disease) Code(s): I25.10 - ATHSCL HEART DISEASE OF [place] CORONARY ARTERY W/O ANG PCTRS Status: Chronic (5) HLD (hyperlipidemia) Code(s): E78.5 - HYPERLIPIDEMIA, UNSPECIFIED Status: Chronic (6) HTN (hypertension) Code(s): I10 - ESSENTIAL (PRIMARY) HYPERTENSION Status: Chronic (7) Tobacco abuse Code(s): Z72.0 - TOBACCO USE Status: Chronic - Plan Plan: - cardiac monitoring with tele - diltiazem drip - troponin trend - full ac w lovenox - 2d echo - symptomatic tx for nausea and vomiting - iv hydration - banana bag - ativan prn withdrwal - advice to quit tobacco use -consider surgery eval when pt is more stable for cholecystectomy
[2019-07-28] MEDS ORDERED: Lorazepam 2 MG/ML VIAL SLOW IVP PRN (23:56)
[2019-07-29] MEDS: Sodium Chloride 0.9% 1,000 ML IV SCH (02:38)
[2019-07-29 03:37] LABS: ALT (SGPT) 185 U/L (8-55); AST (SGOT) 216 U/L (5-34); Alkaline Phosphatase 69 U/L (40-110); Anion Gap 20 mmol/L (10-20); BUN (Urea Nitrogen) 9 mg/dL (8.4-25.7); Calc. Creatinine Clearance 172 mL/min (70-130); Carbon Dioxide 20 mmol/L (23-31); Chloride 102 mmol/L (98-107); Estimated GFR-MDRD Greater than 90; Globulin 2.8 g/dL (2.4-3.5); Glucose 81 mg/dL (80-115); Potassium 3.7 mmol/L (3.5-5.1); Protein, Total 6.8 g/dL (5.8-8.1); Sodium 138 mmol/L (136-145)
[2019-07-29] MEDS ORDERED: Diazepam 5 MG TAB PO PRN (03:37)
[2019-07-29 03:38] LABS: Band 12 % (5-11); Hemoglobin 14.1 g/dL (14.0-18.0); Lymphocytes 26 % (21-51); MDiff Complete? YES; Mean Corpuscular HGB CONC 34.4 g/dL (32.0-36.0); Mean Corpuscular Hemoglobin 35.9 pg (27.0-31.0); Mean Platelet Volume 7.3 fL (7.4-10.4); Monocytes 11 % (0-10); Neutrophil 49 % (42-75); Platelet Count 167 thou/uL (130-400); Platelet Morphology Comment Appears Adequate; RBC Distribution Width 13.8 % (11.5-14.5); Red Blood Cell (RBC) Count 3.94 mill/uL (4.70-6.10); White Blood Cell (WBC) Count 5.2 thou/uL (4.8-10.8)
[2019-07-29 03:40] LABS: Troponin I 0.026 ng/mL (< 0.028)
[2019-07-29] MEDS ORDERED: Diazepam 5 MG TAB PO SCH (03:45)
[2019-07-29] MEDS ORDERED: Diltiazem 125 MG in Sodium Chloride 0.9% 100 ML IVPB SCH (03:45)
[2019-07-29] MEDS: Multivitamins, Adult 10 ML, Folic Acid 1 MG, Thiamine HCl 100 MG in Dextrose 5 %-0.45 %... IV SCH (06:15)
--- NOTE | 2019-07-29 07:22 | CT ---
ABDOMEN CT WITH CONTRAST PELVIC CT WITH CONTRAST: Date: 07/28/2019 HISTORY: Right lower quadrant pain. COMPARISON: None. FINDINGS: ABDOMEN CT: Chronic changes in the left lung base. Heart size is within normal limits. There are coronary artery calcifications. No significant pericard ial fluid. Minimal atherosclerosis of a nonaneurysmal aorta. No periaortic fat stranding. Diffuse hypoattenuation of the liver, compatible with hepatic steatosis. Moderately prominent gallbladder without pericholecystic fluid. Patient has a prior HIDA scan that de monstrates chronic gallbladder dyskinesia. Correlate clinically. The spleen, pancreas, and adrenal glands have appropriate attenuation and enhancement. No gastrohepatic, retrocrural, or periportal lymphadenopathy. There are a few scattered nonspecific mesenteric lymph nodes. No mesenteric mass, lymphadenopathy, fr ee air, or free fluid. Symmetric enhancement of the kidneys. Bilaterally, no obstructive uropathy. Limited evaluation of the alimentary canal by lack of oral contrast. There is no evidence of a small bowel obstruction. Normal ileocecal junction. Normal caliber appendix. Scattered fecal material in a nondistended, nondilated colon. Diverticula in the sigmoid colon. No diverticulitis. PELVIC CT: Urinary bladder has a normal appearance. No pelvic mass, lymphadenopathy, free air, or free fluid. Presacral fat is preserved. No lytic or blastic lesions in the osseous structures. IMPRESSION: 1. Distended gallbladder with mild gallbladder wall enhancement. Patient has a previous HIDA scan th at demonstrated chronic gallbladder dyskinesia. Correlate for chronic acalculous cholecystitis. 2. Diffuse hepatic steatosis. 3. Normal caliber appendix. 4. Diverticulosis, without evidence of diverticulitis. POS: PPP
[2019-07-29] MEDS: Famotidine/PF 20 mg/2ml Vial SLOW IVP SCH ×2 (08:07→20:04)
[2019-07-29] MEDS: Folic Acid 1 MG TAB PO SCH (08:07)
[2019-07-29] MEDS: Enoxaparin Sodium 100 MG/ML SYRINGE SC SCH ×2 (08:07→20:03)
[2019-07-29] MEDS: Multivitamin W/ Minerals 1 TAB PO SCH (08:07)
--- NOTE | 2019-07-29 10:36 | PDOC.HOSPP ---
- Subjective Encounter Date: 07/29/19 Encounter Time: 11:00 Subjective: Patient with improvement in his nausea, last vomiting was early this morning and tolerated a few bites of eggs that he has kept down. Heart rate remains high and BP has gone up too. Right sided abdominal pain persistent, though not as bad as yesterday. - Objective Vital Signs & Weight: Vital Signs (12 hours) Temp Pulse Resp BP Pulse Ox 07/29/19 08:08 185/112 H 07/29/19 07:43 100 07/29/19 07:42 173/105 H 07/29/19 07:24 99.0 F 07/29/19 07:00 135/95 H 07/29/19 06:08 171/100 H 07/29/19 05:10 179/109 H 07/29/19 04:18 177/95 H 07/29/19 03:36 99.2 F 07/29/19 01:59 97 07/29/19 01:32 98.9 F 131 H 16 96 Weight Weight 248 lb 9.6 oz Most Recent Monitor Data Heart Rate from ECG 131 NIBP 193/161 NIBP BP-Mean 171 Respiration from ECG 19 SpO2 96 I&O: 07/28/19 07/29/19 07/30/19 06:59 06:59 06:59 Intake Total 720 Output Total 1050 825 Balance -330 -825 Result Diagrams: 07/29/19 02:54 07/29/19 02:54 Hospitalist ROS - Review of Systems Constitutional: denies: fever, chills Respiratory: denies: cough, shortness of breath Cardiovascular: denies: chest pain, palpitations Gastrointestinal: reports: nausea, vomiting, abdominal pain. denies: diarrhea, constipation - Medication Medications: Active Medications Generic Name Dose Route Start Last Admin Trade Name Freq PRN Reason Stop Dose Admin Enoxaparin Sodium 100 mg 07/29/19 09:00 07/29/19 08:07 Lovenox SC 100 mg 0900,2100 SCOOTER Administration Famotidine 20 mg 07/29/19 09:00 07/29/19 08:07 Pepcid SLOW IVP 20 mg Q12HR SCOOTER Administration Folic Acid 1 mg 07/29/19 09:00 07/29/19 08:07 Folvite PO 1 mg DAILY SCOOTER Administration Multivitamins 10 ml/ Folic 1,011.2 mls @ 40 mls/hr 07/29/19 01:00 07/29/19 06 :15 Acid 1 mg/ Thiamine HCl 100 mg IV 1,011.2 mls / Dextrose/Sodium Chloride Q24HR SCOOTER Administration Sodium Chloride 1,000 mls @ 70 mls/hr 07/28/19 23:45 07/29/19 02:38 Normal Saline 0.9% IV 1,000 mls .[id number] SCOOTER Administration Iron/Minerals/Multivitamins 1 tab 07/29/19 09:00 07/29/19 08:07 Theragran M PO 1 tab DAILY SCOOTER Administration Ondansetron HCl 4 mg 07/28/19 23:33 07/29/19 02:38 Zofran Odt PO 4 mg Q6H PRN Administration Nausea/Vomiting - Exam General Appearance: NAD, awake alert ENT: moist mucosa Heart: no murmur, no gallops, no rubs, irregular Heart - other findings: tachycardic Respiratory: CTAB, no wheezes, no rales, no ronchi Gastrointestinal: soft, non-distended, normal bowel sounds Gastrointestinal - other findings: TTP RUQ Psychiatric: normal affect, normal behavior, A&O x 3 Hosp A/P (1) Atrial fibrillation, new onset Code(s): I48.91 - UNSPECIFIED ATRIAL FIBRILLATION Status: Acute Plan: with RVR (2) Chronic cholecystitis without calculus Code(s): K81.1 - CHRONIC CHOLECYSTITIS Status: Chronic (3) Nausea & vomiting Code(s): R11.2 - NAUSEA WITH VOMITING, UNSPECIFIED Status: Acute (4) Alcoholic fatty liver Code(s): K70.0 - ALCOHOLIC FATTY LIVER Status: Chronic (5) Alcohol abuse Code(s): F10.10 - ALCOHOL ABUSE, UNCOMPLICATED Status: Chronic (6) CAD (coronary artery disease) Code(s): I25.10 - ATHSCL HEART DISEASE OF [place] CORONARY ARTERY W/O ANG PCTRS Status: Chronic (7) HLD (hyperlipidemia) Code(s): E78.5 - HYPERLIPIDEMIA, UNSPECIFIED Status: Chronic (8) HTN (hypertension) Code(s): I10 - ESSENTIAL (PRIMARY) HYPERTENSION Status: Chronic (9) Obesity Code(s): E66.9 - OBESITY, UNSPECIFIED Status: Chronic Qualifiers: Obesity classification: adult class 1 (BMI 30 - 34.9) (10) Tobacco abuse Code(s): Z72.0 - TOBACCO USE Status: Chronic - Plan Patient with persistent tachycardia in the 120-150's on maxed out diltiazem drip. Dr. Devlin consulted. Nausea and vomiting and abdominal pain from recurrent symptoms of acalculus cholecystitis. Will need surgical consultation once cardiovascularly stable. ECHO pending ASE protocol Full dose Lovenox Pepcid IV BID
[2019-07-29] MEDS ORDERED: hydrALAZINE 20 MG/ML VIAL SLOW IVP PRN (12:09)
[2019-07-29] MEDS: Labetalol HCl 100 MG/20 ML VIAL SLOW IVP PRN ×2 (12:20→20:15)
--- NOTE | 2019-07-29 12:55 | CON ---
DATE OF CONSULTATION: 07/29/2019 REASON FOR CONSULTATION: Atrial fibrillation with RVR. HISTORY OF PRESENT ILLNESS: Mr. Schmitt is a very pleasant 64-year-old gentleman who I have seen and evaluated in the past. He recently presented with unstable angina. He underwent stent placement to the LAD and circumflex artery. He recently presented to the hospital in May with epigastric discomfort. He was diagnosed with cholecystitis. He was treated conservatively. He returned with more symptoms noted in the right lower quadrant. No fevers or chills present. He also developed atrial fibrillation with RVR. PAST MEDICAL HISTORY: CAD, status post stent placement, hypertension. SOCIAL HISTORY: Positive alcohol use. Positive tobacco use. FAMILY HISTORY: Positive for CVA. Negative for CAD. HOME MEDICATIONS: Include 1. Aspirin. 2. Carvedilol. 3. Clonidine. 4. Atorvastatin. 5. Brilinta. 6. Losartan. 7. Fluoxetine. ALLERGIES: SULFA. REVIEW OF SYSTEMS: 12-point review of system is reviewed and as above, otherwise negative. PHYSICAL EXAMINATION: GENERAL: Patient is a pleasant male who is in no acute distress. The patient appears their stated age. VITAL SIGNS: VITAL SIGNS: Blood pressure 196/98, pulse 145, respirations 20. NEUROLOGIC: The patient is alert and oriented x3 with no focal neurologic deficits. HEENT: Sclerae without icterus. Mouth has moist mucous membranes with normal pallor. NECK: No JVD. Carotid upstroke brisk. No bruits bilaterally. LUNGS: Clear to auscultation with unlabored respirations. BACK: No scoliosis or kyphosis. CARDIAC: Irregularly irregular. ABDOMEN: Soft, nontender, nondistended. No peritoneal signs present. No hepatosplenomegaly. No abnormal striae. EXTREMITIES: 2+ femoral and 2+ dorsalis pedis pulses. No cyanosis, clubbing, or edema. SKIN: No gross abnormalities. PERTINENT LABORATORY DATA: Hemoglobin 14.1, creatinine 0.7. IMPRESSION: 1. Atrial fibrillation with rapid ventricular response. 2. Abdominal discomfort. 3. Alcohol abuse. RECOMMENDATIONS: Add p.o. Cardizem to supplement IV Cardizem. We will try and titrate down IV in place of p.o. We will also give digoxin IV to help with the rate. If he continues to have increased heart rate, we then recommend WILI with cardioversion. In this patient, we will check a COVID test. Also counseled on alcohol abuse. Job ID: [id number]
[2019-07-29] MEDS: Digoxin 0.5 MG/2 ML AMP SLOW IVP SCH ×2 (13:45→17:05)
[2019-07-30] MEDS: Multivitamins, Adult 10 ML, Folic Acid 1 MG, Thiamine HCl 100 MG in Dextrose 5 %-0.45 %... IV SCH (00:53)
[2019-07-30] MEDS: Digoxin 0.5 MG/2 ML AMP SLOW IVP SCH ×2 (01:00→04:53)
[2019-07-30] MEDS ORDERED: Diazepam 5 MG TAB PO PRN (04:00)
[2019-07-30] MEDS: Amlodipine 5 MG TAB PO SCH (05:40)
[2019-07-30] MEDS: Hydrochlorothiazide 25 MG TAB PO SCH (05:41)
[2019-07-30] MEDS: Sodium Chloride 0.9% 1,000 ML IV SCH ×3 (05:43→17:05)
[2019-07-30] MEDS: Enoxaparin Sodium 100 MG/ML SYRINGE SC SCH (08:37)
[2019-07-30] MEDS: Folic Acid 1 MG TAB PO SCH (08:38)
[2019-07-30] MEDS: Magnesium Oxide 400 MG TAB PO SCH (08:38)
[2019-07-30] MEDS: Multivitamin W/ Minerals 1 TAB PO SCH (08:38)
[2019-07-30] MEDS: Famotidine/PF 20 mg/2ml Vial SLOW IVP SCH ×2 (08:38→20:55)
[2019-07-30] MEDS: Thiamine 100 MG TAB PO SCH (08:38)
--- NOTE | 2019-07-30 09:40 | PDOC.HOSPP ---
- Subjective Encounter Date: 07/30/19 Encounter Time: 16:00 Subjective: Patient feeling better. No more nausea. Pain more in right flank now. Heart rate was excellent for awhile earlier today and surgery consulted for likely cholecystectomy, however heart rate has jumped back up. Dr. Devlin consulting EP for ablation. - Objective Vital Signs & Weight: Vital Signs (12 hours) Temp Pulse Resp BP BP Pulse Ox 07/30/19 07:26 97 07/30/19 07:00 97.5 F L 07/30/19 05:40 106 H 181/118 H 07/30/19 04:53 74 07/30/19 03:44 98.6 F 07/30/19 03:33 176/97 H 07/30/19 03:00 12 95 07/30/19 02:28 169/114 H 07/30/19 01:11 169/111 H 07/30/19 01:00 119 H 07/30/19 00:20 179/109 H 07/29/19 23:38 98.8 F 07/29/19 22:36 185/101 H Weight Weight 248 lb 9.6 oz Most Recent Monitor Data Heart Rate from ECG 94 NIBP 181/118 NIBP BP-Mean 139 Respiration from ECG 12 SpO2 94 I&O: 07/29/19 07/30/19 07/31/19 06:59 06:59 06:59 Intake Total 720 480 Output Total 9663 0095 1075 [facility] -3295 -1075 Result Diagrams: 07/30/19 10:04 07/29/19 02:54 Hospitalist ROS - Review of Systems Constitutional: denies: fever, chills Respiratory: denies: cough, shortness of breath Cardiovascular: denies: chest pain, palpitations Gastrointestinal: reports: abdominal pain. denies: nausea, vomiting, diarrhea, constipation - Medication Medications: Active Medications Generic Name Dose Route Start Last Admin Trade Name Freq PRN Reason Stop Dose Admin Amlodipine Besylate 5 mg 07/30/19 06:00 07/30/19 05:40 Norvasc PO 5 mg 0600 SCOOTER Administration Diltiazem HCl 60 mg 07/29/19 18:00 07/30/19 05:28 Cardizem PO 60 mg Q6HR SCOOTER Administration Enoxaparin Sodium 100 mg 07/29/19 09:00 07/30/19 08:37 Lovenox SC 100 mg 0900,2100 SCOOTER Administration Famotidine 20 mg 07/29/19 09:00 07/30/19 08:38 Pepcid SLOW IVP 20 mg Q12HR SCOOTER Administration Folic Acid 1 mg 07/29/19 09:00 07/30/19 08:38 Folvite PO 1 mg DAILY SCOOTER Administration Hydrochlorothiazide 25 mg 07/30/19 06:00 07/30/19 05:41 Hydrochlorothiazide PO 25 mg 0600 SCOOTER Administration Multivitamins 10 ml/ Folic 1,011.2 mls @ 40 mls/hr 07/29/19 01:00 07/30/19 00 :53 Acid 1 mg/ Thiamine HCl 100 mg IV 1,011.2 mls / Dextrose/Sodium Chloride Q24HR SCOOTER Administration Sodium Chloride 1,000 mls @ 70 mls/hr 07/28/19 23:45 07/30/19 05:47 Normal Saline 0.9% IV Not Given .[id number] SCOOTER Diltiazem HCl 125 mg/ Sodium 125 mls @ 0 mls/hr 07/29/19 03:45 07/29/19 20:03 Chloride IVPB 125 mls INF SCOOTER Administration Protocol Titrate Iron/Minerals/Multivitamins 1 tab 07/29/19 09:00 07/30/19 08:38 Theragran M PO 1 tab DAILY [facility] Administration Labetalol HCl 10 mg 07/29/19 12:09 07/29/19 20:15 Normodyne SLOW IVP 2 ml Q4H PRN Administration SBP Greater Than 180 Magnesium Oxide 400 mg 07/30/19 09:00 07/30/19 08:38 Magnesium Oxide PO 400 mg DAILY SCOOTER Administration Ondansetron HCl 4 mg 07/28/19 23:33 07/29/19 02:38 Zofran Odt PO 4 mg Q6H PRN Administration Nausea/Vomiting Thiamine HCl 100 mg 07/30/19 09:00 07/30/19 08:38 Thiamine PO 100 mg DAILY SCOOTER Administration - Exam General Appearance: NAD, awake alert ENT: moist mucosa Heart: no murmur, no gallops, no rubs, irregular Respiratory: CTAB, no wheezes, no rales, no ronchi Gastrointestinal: soft, non-distended, normal bowel sounds, tender to palpation Gastrointestinal - other findings: RUQ and right mid abdomen Musculoskeletal: normal tone, normal strength Psychiatric: normal affect, normal behavior, A&O x 3 Hosp A/P (1) Atrial fibrillation, new onset Code(s): I48.91 - UNSPECIFIED ATRIAL FIBRILLATION Status: Acute (2) Nausea & vomiting Code(s): R11.2 - NAUSEA WITH VOMITING, UNSPECIFIED Status: Acute (3) Alcoholic fatty liver Code(s): K70.0 - ALCOHOLIC FATTY LIVER Status: Chronic (4) Alcohol abuse Code(s): F10.10 - ALCOHOL ABUSE, UNCOMPLICATED Status: Chronic (5) CAD (coronary artery disease) Code(s): I25.10 - ATHSCL HEART DISEASE OF [place] CORONARY ARTERY W/O ANG PCTRS Status: Chronic (6) HLD (hyperlipidemia) Code(s): E78.5 - HYPERLIPIDEMIA, UNSPECIFIED Status: Chronic (7) HTN (hypertension) Code(s): I10 - ESSENTIAL (PRIMARY) HYPERTENSION Status: Chronic (8) Obesity Code(s): E66.9 - OBESITY, UNSPECIFIED Status: Chronic Qualifiers: Obesity classification: adult class 1 (BMI 30 - 34.9) (9) Tobacco abuse Code(s): Z72.0 - TOBACCO USE Status: Chronic (10) Chronic calculous cholecystitis Code(s): K80.10 - CALCULUS OF GALLBLADDER W CHRONIC CHOLECYST W/O OBSTRUCTION Status: Acute - Plan Patient with improved heart rate with diltiazem and digoxin. Appreciate Dr. Devlin's assistance. EP consulted for ablation. Nausea and vomiting and abdominal pain from recurrent symptoms of chronic calculus cholecystitis. I spoke with Dr. Arnold and he will evaluate the patient now that the heart rate is improved. ECHO pending ASE protocol Full dose Lovenox- switching to IV heparin to allow for surgery in the next 2-3 days. Pepcid IV BID
[2019-07-30 10:17] LABS: Platelet Count 148 thou/uL (130-400)
[2019-07-30 13:13] LABS: SARS-CoV-2 MS2 Positive; SARS-CoV-2 N Gene Negative; SARS-CoV-2 S Gene Negative; SARS-CoV-2 orf1ab Negative
[2019-07-30] MEDS: Heparin 10,000 UNITS/ 10 ML VIAL SLOW IVP SCH (17:02)
[2019-07-30] MEDS: Heparin 25,000 units/D5W 500 ML IVPB SCH (17:04)
--- NOTE | 2019-07-30 17:48 | PRG ---
DATE OF SERVICE: 07/30/2019 SUBJECTIVE: Mr. Schmitt overall is doing better. He continues to complain of abdominal discomfort. Unfortunately, his heart rate continues to be elevated. He is on Cardizem. He was also loaded with digoxin. OBJECTIVE: GENERAL: Patient is a pleasant gentleman who is in no acute distress. The patient appears their stated age. VITAL SIGNS: Heart rate 77 to 123. NEUROLOGIC: The patient is alert and oriented x3 with no focal neurologic deficits. HEENT: Sclerae without icterus. Mouth has moist mucous membranes with normal pallor. NECK: No JVD. Carotid upstroke brisk. No bruits bilaterally. LUNGS: Clear to auscultation with unlabored respirations. BACK: No scoliosis or kyphosis. CARDIAC: Irregularly irregular. ABDOMEN: Soft, nontender, nondistended. No peritoneal signs present. No hepatosplenomegaly. No abnormal striae. EXTREMITIES: 2+ femoral and 2+ dorsalis pedis pulses. No cyanosis, clubbing, or edema. SKIN: No gross abnormalities. PERTINENT LABORATORY DATA: COVID negative. AST and ALT of 216 and 185 with a CO2 of 20 and total bilirubin 1.0. IMPRESSION: 1. Atrial fibrillation with rapid ventricular rate/atrial flutter. 2. Coronary artery disease. 3. Status post stent placed. 4. Cholecystitis. RECOMMENDATIONS: 1. I have asked EP to consult for atrial flutter. 2. Continue digoxin and diltiazem. 3. Continue secondary risk factor modification for underlying coronary artery disease. Job ID: [id number]
[2019-07-31] MEDS: Heparin 10,000 UNITS/ 10 ML VIAL SLOW IVP SCH (00:26)
[2019-07-31] MEDS: Amlodipine 5 MG TAB PO SCH (05:56)
[2019-07-31] MEDS: Hydrochlorothiazide 25 MG TAB PO SCH (05:58)
[2019-07-31] MEDS: Multivitamins, Adult 10 ML, Folic Acid 1 MG, Thiamine HCl 100 MG in Dextrose 5 %-0.45 %... IV SCH (06:40)
[2019-07-31] MEDS: Sodium Chloride 0.9% 1,000 ML IV SCH (10:05)
[2019-07-31] MEDS: Famotidine/PF 20 mg/2ml Vial SLOW IVP SCH (10:05)
[2019-07-31] MEDS: Folic Acid 1 MG TAB PO SCH (10:15)
[2019-07-31] MEDS: Multivitamin W/ Minerals 1 TAB PO SCH (10:15)
[2019-07-31] MEDS: Magnesium Oxide 400 MG TAB PO SCH (10:15)
--- NOTE | 2019-07-31 10:15 | PDOC.EP ---
- Subjective Date: 07/31/19 Time: 10:08 Interval History: NPO for WILI/CV today. Feels fair despite ongoing AF. + heart racing, palpitations - chest pain, passing out, N/V/D - Objective Allergies/Adverse Reactions: Allergies Allergy/AdvReac Type Severity Reaction Status Date / Time Sulfa (Sulfonamide Allergy Verified 05/16/19 15:57 Antibiotics) Current Medications Acetaminophen (Tylenol) 650 mg PO Q4H PRN PRN Reason: Headache/Fever/Mild Pain (1-3) Acetaminophen (Tylenol) 650 mg WA Q4H PRN PRN Reason: Headache/Fever/Mild Pain (1-3) Hydrocodone Bitart/Acetaminophen (Porter 5/325) 1 tab PO Q4H PRN PRN Reason: Moderate Pain (4-6) Hydrocodone Bitart/Acetaminophen ([place] 5/325) 2 tab PO Q4H PRN PRN Reason: Severe Pain (7-10) Amlodipine Besylate (Norvasc) 5 mg PO 0600 [facility] Last Admin: 07/31/19 05:56 Dose: 5 mg Diazepam (Valium) 5 mg PO Q4H PRN PRN Reason: FOR ASE 10 OR GREATER Last Admin: 07/30/19 21:41 Dose: 5 mg Diltiazem HCl (Cardizem) 60 mg PO Q6HR [facility] Last Admin: 07/31/19 05:58 Dose: 60 mg Famotidine (Pepcid) 20 mg SLOW IVP Q12HR [facility] Last Admin: 07/31/19 10:05 Dose: 20 mg Folic Acid (Folvite) 1 mg PO DAILY [facility] Last Admin: 07/30/19 08:38 Dose: 1 mg Heparin Sodium (Porcine) (Heparin 1,000 Units/Ml (10 Ml)) 0 units SLOW IVP ASDIR [facility]; Protocol Last Admin: 07/31/19 00:26 Dose: 3,390 unit Hydralazine HCl (Apresoline) 10 mg SLOW IVP Q4H PRN PRN Reason: SBP Greater Than 180 Hydrochlorothiazide (Hydrochlorothiazide) 25 mg PO 0600 [facility] Last Admin: 07/31/19 05:58 Dose: 25 mg Multivitamins 10 ml/ Folic Acid 1 mg/ Thiamine HCl 100 mg / Dextrose/Sodium Chloride 1,011.2 mls @ 40 mls/hr IV Q24HR [facility] Last Admin: 07/31/19 06:40 Dose: Not Given Sodium Chloride (Normal Saline 0.9%) 1,000 mls @ 70 mls/hr IV .[id number] [facility] Last Admin: 07/31/19 10:05 Dose: 1,000 mls Diltiazem HCl 125 mg/ Sodium (Chloride) 125 mls @ 0 mls/hr IVPB INF [facility]; Protocol Last Admin: 07/29/19 20:03 Dose: 125 mls Heparin Sodium/Dextrose (Heparin 25,000 Units/D5w) 500 mls @ 0 mls/hr IVPB INF [facility]; Protocol Last Admin: 07/30/19 17:04 Dose: 500 mls Iron/Minerals/Multivitamins (Theragran M) 1 tab PO DAILY [facility] Last Admin: 07/30/19 08:38 Dose: 1 tab Labetalol HCl (Normodyne) 10 mg SLOW IVP Q4H PRN PRN Reason: SBP Greater Than 180 Last Admin: 07/29/19 20:15 Dose: 2 ml Lorazepam (Ativan) 2 mg SLOW IVP Q6H PRN PRN Reason: Anxiety/Agitation Magnesium Oxide (Magnesium Oxide) 400 mg PO DAILY [facility] Last Admin: 07/30/19 08:38 Dose: 400 mg Morphine Sulfate (Morphine) 2 mg SLOW IVP Q4H PRN PRN Reason: Pain Ondansetron HCl (Zofran Odt) 4 mg PO Q6H PRN PRN Reason: Nausea/Vomiting Last Admin: 07/29/19 02:38 Dose: 4 mg Ondansetron HCl (Zofran) 4 mg IVP Q6H PRN PRN Reason: Nausea/Vomiting Sodium Chloride (Flush - Normal Saline) 10 ml IVF Q12HR [facility] Last Admin: 07/30/19 20:56 Dose: Not Given Sodium Chloride (Flush - Normal Saline) 10 ml IVF PRN PRN PRN Reason: Saline Flush Thiamine HCl (Thiamine) 100 mg PO DAILY [facility] Last Admin: 07/30/19 08:38 Dose: 100 mg Vital Signs & Weight: Vital Signs Temp Pulse Resp BP BP Pulse Ox 07/31/19 07:26 96 07/31/19 07:00 98.2 F 07/31/19 06:44 139/92 H 07/31/19 05:56 101 H 159/102 H 07/31/19 05:00 12 159/102 H 96 07/31/19 04:00 148/99 H 07/31/19 03:34 98.0 F 07/31/19 03:00 131/99 H 07/31/19 02:00 125/95 H 07/31/19 01:00 162/102 H 07/31/19 00:35 174/118 H 07/30/19 23:45 98.4 F 07/30/19 23:13 166/113 H 07/30/19 22:10 14 150/92 H Admit Weight 248 lb 9.6 oz Weight 248 lb 9.6 oz I/O: I/O 07/30/19 07/31/19 08/01/19 06:59 06:59 06:59 Intake Total 480 3740 Output Total 4620 2869 Balance -8310 -2462 - Quality Measures Condition: Atrial Fibrillation/Flutter (hx or current) - Physical Exam General: alert & oriented x3, no apparent distress, speech clear, affect appropriate HEENT: mucus membranes moist, normocephaly, EOMI Neck: supple neck, no JVD/HJR, no lymphadenopathy Cardiology: irregularly irregular, tachycardia Lungs: clear to auscultation, normal breath sounds, no wheeze, rales, rhonchi Neurology: cranial nerve 2-12 intact, grossly intact, sensory function intact Abdomen: unremarkable, active bowel sounds, no pulsations/bruits - Labs Result Diagrams: 07/31/19 10:41 07/31/19 10:41 - EKG Interpretation EKG shows: Atrial fibrillation, Atypical atrial flutter - Assessment/Plan Assessment/Plan: 1. Atrial fibrillation with RVR -new onset -recommend WILI/CV -consider OP ablation in the future of symptomatic recurrence is seen 2. Acute cholicystitis -surgical intervention being considered -per medicine team 3. CHADS2-VASC:2 (HTN, Vasc ds) - lovenox for now, long term care administrator NOAC therapy is indicated 4. Liver enzyme elevation 5. LVEF preserved 6. ETOH abuse Currently on dilt gtt for rate control at 5mg/hr. HR largely 80-100 but RVR seen up to 140bpm. Recheck live enzymes. Recommend WILI/CV after which, transient AAD therapy with multaq could be initiated while gallbladder issues are being addressed. Consider OP ablation if symptomatic recurrence is seen once medical issues are resolved.
[2019-07-31] MEDS: Thiamine 100 MG TAB PO SCH (10:17)
[2019-07-31 11:13] LABS: ALT (SGPT) 208 U/L (8-55); AST (SGOT) 191 U/L (5-34); Albumin 4.2 g/dL (3.4-4.8); Alkaline Phosphatase 73 U/L (40-110); Anion Gap 15 mmol/L (10-20); BUN (Urea Nitrogen) 10 mg/dL (8.4-25.7); Bilirubin, Total 1.6 mg/dL (0.2-1.2); Calc. Creatinine Clearance 165 mL/min (70-130); Calcium 9.7 mg/dL (7.8-10.44); Carbon Dioxide 22 mmol/L (23-31); Chloride 99 mmol/L (98-107); Estimated GFR-MDRD Greater than 90; Globulin 3.5 g/dL (2.4-3.5); Glucose 116 mg/dL (80-115); Magnesium 1.9 mg/dL (1.6-2.6); Phosphorus 4.5 mg/dL (2.3-4.7); Potassium 4.1 mmol/L (3.5-5.1); Protein, Total 7.7 g/dL (5.8-8.1); Sodium 132 mmol/L (136-145)
[2019-07-31 11:24] LABS: Hemoglobin 15.1 g/dL (14.0-18.0); Mean Corpuscular HGB CONC 34.2 g/dL (32.0-36.0); Mean Corpuscular Hemoglobin 35.4 pg (27.0-31.0); Mean Platelet Volume 8.1 fL (7.4-10.4); Platelet Count 140 thou/uL (130-400); Red Blood Cell (RBC) Count 4.27 mill/uL (4.70-6.10); White Blood Cell (WBC) Count 4.9 thou/uL (4.8-10.8)
[2019-07-31] MEDS ORDERED: Dronedarone HCl 400 MG TAB PO SCH (11:30)
--- NOTE | 2019-07-31 12:06 | CON ---
DATE OF CONSULTATION: 07/30/2019 REASON FOR CONSULTATION: Atrial fibrillation with RVR. Consultation performed by Dr. Jonathan Saravia. HISTORY OF PRESENT ILLNESS: Mr. Schmitt is a pleasant 64-year-old gentleman, followed by Dr. Devlin for Cardiology. He has previously undergone left heart catheterization with PCI to the LAD and the circumflex artery. He has recently been hospitalized repeatedly, starting in May for cholecystitis. He returned to the hospital on 07/27 with ongoing discomfort as well as intractable nausea and vomiting. He was also found to be in atrial fibrillation with RVR at that time and was placed on IV diltiazem drip. Electrophysiology has been consulted for management of his atrial fibrillation. His cardiac stents were placed in March of 2019. Currently, Mr. Schmitt is feeling fair. He denies any significant chest pain, shortness of breath, orthopnea, or dyspnea on exertion. He does continue to have abdominal pain, some nausea, and occasional palpitations. REVIEW OF SYSTEMS: A 12-point review of systems was negative except that listed above in HPI. PAST MEDICAL HISTORY: 1. Coronary artery disease, status post stenting of the LAD and circumflex in March 2019. 2. Hypertension. 3. Hyperlipidemia. 4. Cholelithiasis. 5. Depression. FAMILY HISTORY: Denies family history of sudden cardiac or early-onset coronary artery disease or complications from anesthesia. SOCIAL HISTORY: Occasional smoker. Drinks vodka daily. Denies illicit drug use. Works for [employer] in [place]. OBJECTIVE: VITAL SIGNS: Temperature 97.8, pulse 109, blood pressure 133/90, respirations 18, and oxygen is 97% on room air. GENERAL: The patient is alert and oriented. Speech is clear. Affect is appropriate. He is in no apparent distress at the time of exam, resting comfortably in bed. HEENT: He is normocephalic and atraumatic. His sclerae are anicteric. EOMs are intact. Oral mucosa is moist and pink. He has adequate dentition. NECK: Supple without jugular venous distention. There is no lymphadenopathy. His trachea is midline. No thyromegaly is noted. CARDIOVASCULAR: His heart rate is irregularly irregular, occasionally rapid. PMI is nondisplaced. No significant murmur, rub, or gallop is appreciated. LUNGS: Clear to auscultation. Slightly diminished in the bases, but no significant wheezes, crackles, or rhonchi are appreciated. ABDOMEN: Soft and nontender without palpable masses. He is obese. Hepatojugular reflux is negative. There are distant bowel tones, difficult to auscultate due to habitus. EXTREMITIES: Warm and dry to touch. Well perfused without clubbing, cyanosis, or edema. SKIN: Appears grossly intact. NEUROLOGIC: Grossly intact without focal deficit. Gait was not assessed. LABORATORY DATA: Hematology was unremarkable. Chemistry; potassium 3.7, creatinine 0.71, magnesium 1.7. Liver enzymes are elevated. TSH 3.2. Serial troponins were indeterminately elevated, peaking at 0.041. Telemetry and EKG show atrial fibrillation with RVR, organizing into atrial flutter with the addition of amiodarone. Echocardiogram on 04/09/2019, LVEF 50% to 55%, mild concentric LVH, moderate to severe dilation of left atrium, moderate MR, mild AR, moderate TR. IMPRESSION: 1. New onset atrial fibrillation, then organized to atrial flutter with RVR. 2. Cholelithiasis, may require surgical intervention. 3. History of coronary artery disease with stenting in March 2019, on Brilinta. 4. History of alcohol abuse. 5. Elevated liver enzymes. 6. Preserved LVEF of 50% to 55%. PLAN AND RECOMMENDATIONS: Mr. Schmitt is a 64-year-old gentleman, who we find with new onset of atrial fibrillation with RVR. He carries a history of a preserved LV ejection fraction as well as coronary artery disease with recent stenting, on Brilinta. He was given some amiodarone, which organized his atrial fibrillation into atrial flutter, also resulting in improved rate control. His laboratory evaluation shows he has elevated liver enzymes. Transient amiodarone use maybe considered, though trending of his liver enzymes will need to be closely monitored. I would recommend continue rate control and consider performing a WILI-guided cardioversion. We can consider antiarrhythmic therapy with Multaq with surveillance of his LFTs, albeit fdc may not be an optimal candidate hence his history of ETOH abuse. He is alos not a candidate for class 1C antiarrhythmics due to his coronary artery disease. His kidney function is within normal ranges, and Tikosyn or sotalol loading could be a consideration. Alternately, we can monitor for recurrence and consider an outpatient ablation in the future if symptomatic recurrence is seen. He will require anticoagulation. For now, Lovenox will be adequate, now with his CHADS-VASc score of 2 on the basis of hypertension and vascular disease, oral anticoagulation is indicated for long-term treatment. Thank you for allowing me to participate in the care of this patient. Job ID: [id number]
[2019-07-31 12:19] LABS: Band 3 % (5-11); Eosinophils 2 % (0-10); Lymphocytes 29 % (21-51); MDiff Complete? YES; Monocytes 11 % (0-10); Neutrophil 54 % (42-75); RBC Morphology Normal
[2019-07-31] MEDS ORDERED: PROPOFOL 40 ML ONE (12:28)
[2019-07-31 12:37] LABS: ALT (SGPT) 210 U/L (8-55); AST (SGOT) 190 U/L (5-34)
--- NOTE | 2019-07-31 13:03 | PDOC.HOSPP ---
- Subjective Encounter Date: 07/31/19 Encounter Time: 11:00 Subjective: Patient seen and examined. No new complaints. No overnight events - Objective Vital Signs & Weight: Vital Signs (12 hours) Temp Pulse Resp BP BP Pulse Ox 07/31/19 11:15 98.6 F 07/31/19 07:26 96 07/31/19 07:00 98.2 F 07/31/19 06:44 139/92 H 07/31/19 05:56 101 H 159/102 H 07/31/19 05:00 12 159/102 H 96 07/31/19 04:00 148/99 H 07/31/19 03:34 98.0 F 07/31/19 03:00 131/99 H 07/31/19 02:00 125/95 H Weight Admit Weight 248 lb 9.6 oz Weight 248 lb 9.6 oz Most Recent Monitor Data Heart Rate from ECG 106 NIBP 181/118 NIBP BP-Mean 139 Respiration from ECG 10 SpO2 92 I&O: 07/30/19 07/31/19 08/01/19 06:59 06:59 06:59 Intake Total 480 3740 Output Total 3775 5525 Balance -7236 -7750 Result Diagrams: 07/31/19 10:41 07/31/19 10:41 Radiology Reviewed by me: Yes EKG Reviewed by me: Yes Hospitalist ROS - Review of Systems Constitutional: denies: fever, chills, sweats, weakness, malaise, other ENT: denies: ear pain, ear discharge, nose pain, nose discharge, nose congestion , mouth pain, mouth swelling, throat pain, throat swelling, other Respiratory: denies: cough, dry, shortness of breath, hemoptysis, SOB with excertion, pleuritic pain, sputum, wheezing, other Cardiovascular: denies: chest pain, palpitations, orthopnea, paroxysmal noc. dyspnea, edema, light headedness, other Gastrointestinal: denies: nausea, vomiting, abdominal pain, diarrhea, constipation, melena, hematochezia, other Genitourinary: denies: dysuria, frequency, incontinence, hematuria, retention, other Musculoskeletal: denies: neck pain, shoulder pain, arm pain, back pain, hand pain, leg pain, foot pain, other - Medication Medications: Active Medications Generic Name Dose Route Start Last Admin Trade Name Freq PRN Reason Stop Dose Admin Amlodipine Besylate 5 mg 07/30/19 06:00 07/31/19 05:56 Norvasc PO 5 mg 0600 SCOOTER Administration Diazepam 5 mg 07/30/19 04:00 07/30/19 21:41 Valium PO 5 mg Q4H PRN Administration FOR ASE 10 OR GREATER Diltiazem HCl 60 mg 07/29/19 18:00 07/31/19 11:44 Cardizem PO 60 mg Q6HR SCOOTER Administration Dronedarone 400 mg 07/31/19 11:30 07/31/19 11:44 Multaq PO 07/31/19 14:00 400 mg NOW SCOOTER Administration Famotidine 20 mg 07/29/19 09:00 07/31/19 10:05 Pepcid SLOW IVP 20 mg Q12HR SCOOTER Administration Folic Acid 1 mg 07/29/19 09:00 07/31/19 10:15 Folvite PO Not Given DAILY SCOOTER Heparin Sodium (Porcine) 0 units 07/30/19 10:00 07/31/19 00:26 Heparin 1,000 Units/Ml (10 Ml) SLOW IVP 3,390 unit ASDIR SCOOTER Administration Protocol Hydrochlorothiazide 25 mg 07/30/19 06:00 07/31/19 05:58 Hydrochlorothiazide PO 25 mg 0600 SCOOTER Administration Multivitamins 10 ml/ Folic 1,011.2 mls @ 40 mls/hr 07/29/19 01:00 07/31/19 06 :40 Acid 1 mg/ Thiamine HCl 100 mg IV Not Given / Dextrose/Sodium Chloride Q24HR SCOOTER Sodium Chloride 1,000 mls @ 70 mls/hr 07/28/19 23:45 07/31/19 10:05 Normal Saline 0.9% IV 1,000 mls .[id number] SCOOTER Administration Diltiazem HCl 125 mg/ Sodium 125 mls @ 0 mls/hr 07/29/19 03:45 07/29/19 20:03 Chloride IVPB 125 mls INF SCOOTER Administration Protocol Titrate Heparin Sodium/Dextrose 500 mls @ 0 mls/hr 07/30/19 10:00 07/30/19 17:04 Heparin 25,000 Units/D5w IVPB 500 mls INF CSOOTER Administration Protocol Per Protocol Iron/Minerals/Multivitamins 1 tab 07/29/19 09:00 07/31/19 10:15 Theragran M PO Not Given DAILY [facility] Labetalol HCl 10 mg 07/29/19 12:09 07/29/19 20:15 Normodyne SLOW IVP 2 ml Q4H PRN Administration SBP Greater Than 180 Magnesium Oxide 400 mg 07/30/19 09:00 07/31/19 10:15 Magnesium Oxide PO Not Given DAILY [facility] Ondansetron HCl 4 mg 07/28/19 23:33 07/29/19 02:38 Zofran Odt PO 4 mg Q6H PRN Administration Nausea/Vomiting Sodium Chloride 10 ml 07/30/19 21:00 07/31/19 10:15 Flush - Normal Saline IVF Not Given Q12HR [facility] Thiamine HCl 100 mg 07/30/19 09:00 07/31/19 10:17 Thiamine PO Not Given DAILY [facility] - Exam General Appearance: NAD, awake alert Eye: PERRL, anicteric sclera ENT: normocephalic atraumatic, no oropharyngeal lesions Neck: supple, symmetric, no JVD, no thyromegaly Heart: no murmur, irregular Respiratory: CTAB, no wheezes, no rales Gastrointestinal: soft, non-tender, non-distended, normal bowel sounds Extremities: no cyanosis, no clubbing Skin: normal turgor, no lesions Neurological: no focal deficits, no new deficit Musculoskeletal: normal tone, normal strength Psychiatric: normal affect, normal behavior Hosp A/P (1) Atrial fibrillation, new onset Code(s): I48.91 - UNSPECIFIED ATRIAL FIBRILLATION Status: Acute (2) Chronic calculous cholecystitis Code(s): K80.10 - CALCULUS OF GALLBLADDER W CHRONIC CHOLECYST W/O OBSTRUCTION Status: Acute (3) Alcoholic fatty liver Code(s): K70.0 - ALCOHOLIC FATTY LIVER Status: Chronic (4) Elevated LFTs Code(s): R79.89 - OTHER SPECIFIED ABNORMAL FINDINGS OF BLOOD CHEMISTRY Status : Acute (5) Medical non-compliance Code(s): Z91.19 - PATIENT'S NONCOMPLIANCE W OTH MEDICAL TREATMENT AND REGIMEN Status: Acute (6) CAD (coronary artery disease) Code(s): I25.10 - ATHSCL HEART DISEASE OF [place] CORONARY ARTERY W/O ANG PCTRS Status: Chronic (7) Depression Code(s): F32.9 - MAJOR DEPRESSIVE DISORDER, SINGLE EPISODE, UNSPECIFIED Status : Chronic (8) HLD (hyperlipidemia) Code(s): E78.5 - HYPERLIPIDEMIA, UNSPECIFIED Status: Chronic (9) HTN (hypertension) Code(s): I10 - ESSENTIAL (PRIMARY) HYPERTENSION Status: Chronic (10) Obesity Code(s): E66.9 - OBESITY, UNSPECIFIED Status: Chronic Qualifiers: Obesity classification: adult class 1 (BMI 30 - 34.9) (11) Tobacco abuse Code(s): Z72.0 - TOBACCO USE Status: Chronic (12) Folate deficiency Code(s): E53.8 - DEFICIENCY OF OTHER SPECIFIED B GROUP VITAMINS Status: Chronic - Plan old records reviewed/req today plan for WILI and possible cardioversion continue heparin drip possible surgery tomorrow for gall bladder folic acid dc ivf continue cardizem helio as per EP
--- NOTE | 2019-07-31 13:57 | PRG ---
DATE OF SERVICE: 07/31/2019 SUBJECTIVE: Mr. Schmitt continues to be in atrial fibrillation. He has been very difficult to control. I consulted with EP and they recommended a cardioversion. I discussed the procedure in full detail with Mr. Schmitt risks include, but not limited to the following: Damage to teeth, mouth, back of throat, damage to esophagus as well as requiring emergency surgery. Also, discussed risk of stroke, burning of skin, temporary cardioversion versus failed cardioversion. All questions were answered. Given the above, the patient agreed to proceed above procedure. Job ID: [id number]
[2019-07-31] MEDS ORDERED: Senokot S 8.6-50 MG TAB PO PRN (14:14)
[2019-07-31] MEDS ORDERED: Artificial Tears 18 DROP/0.9 ML EA EYE PRN (14:14)
[2019-07-31] MEDS ORDERED: Sodium Chloride 0.65% Nasal 44 ML BOT EA NARE PRN (14:14)
[2019-07-31] MEDS ORDERED: Zolpidem Tartrate 5 MG TAB PO PRN (14:14)
[2019-07-31] MEDS ORDERED: Loperamide HCl 2 MG CAP PO PRN (14:14)
[2019-07-31] MEDS ORDERED: Cepastat Lozenges 1 LOZ PO PRN (14:14)
[2019-07-31] MEDS ORDERED: Loratadine 10 MG TAB PO PRN (14:14)
[2019-07-31] MEDS ORDERED: Bisacodyl 10 MG SUPP PR PRN (14:14)
[2019-07-31] MEDS ORDERED: Diabetic Tussin 200 MG/10 ML UDCUP PO PRN (14:14)
[2019-07-31] MEDS: Heparin 25,000 units/D5W 500 ML IVPB SCH (15:10)
[2019-07-31] MEDS: Dronedarone HCl 400 MG TAB PO SCH (17:26)
--- NOTE | 2019-07-31 19:36 | EKG ---
Test Reason : POST WILI/CARDIOVERSI Blood Pressure : / mmHG Vent. Rate : 071 BPM Atrial Rate : 071 BPM P-R Int : 160 ms QRS Dur : 110 ms QT Int : 424 ms P-R-T Axes : 032 -50 036 degrees QTc Int : 460 ms Sinus rhythm with occasional Premature ventricular complexes Possible Left atrial enlargement Incomplete right bundle branch block Left anterior fascicular block Nonspecific ST abnormality Abnormal ECG When compared with ECG of 29-JUL-2019 00:22, (Unconfirmed) Sinus rhythm has replaced Atrial fibrillation Vent. rate has decreased BY 62 BPM Incomplete right bundle branch block has replaced Right bundle branch block Confirmed by DR. Devora GONG ([id number]) on 07/31/2019 7:36:40 PM Referred By: JULIA Confirmed By:DR. Devora GONG
[2019-08-01] MEDS: Heparin 10,000 UNITS/ 10 ML VIAL SLOW IVP SCH (00:24)
--- NOTE | 2019-08-01 00:45 | CON ---
DATE OF CONSULTATION: 07/31/2019 REQUESTING PHYSICIAN: Fern Hoskins MD HISTORY OF PRESENT ILLNESS: This is a 64-year-old man with history of chronic atrial fibrillation, on anticoagulation. The patient presented with worsening nausea and postprandial abdominal pain. The patient had previously been evaluated for the same complaints. Workup at that time included ultrasound and a HIDA scan, both of which were pertinent for acalculous cholecystitis with chronic biliary dyskinesia. The patient was to be evaluated as outpatient for possible cholecystectomy. In the interim, his symptoms has become worse at this time. The patient denies any fevers or chills. He is currently in atrial fibrillation with rapid ventricular response. PAST MEDICAL HISTORY: Pertinent for essential hypertension, hyperlipidemia, coronary artery disease, and chronic depression. PAST SURGICAL HISTORY: The patient denies any previous surgeries. FAMILY HISTORY: Noncontributory for this patient's age. SOCIAL HISTORY: The patient admits to drinking about 4 ounces of vodka per day. He smokes occasionally and denies any illicit drug abuse. PREHOSPITALIZATION MEDICATIONS: Includes; 1. Amlodipine 10 mg p.o. daily. 2. Aspirin 81 mg p.o. daily. 3. Carvedilol 12.5 mg p.o. b.i.d. 4. Clonidine 0.2 mg transdermally q.7 days. 5. Fluoxetine 20 mg p.o. daily. 6. Hydralazine 50 mg p.o. b.i.d. 7. Brilinta 90 mg p.o. b.i.d. 8. Additionally, he is currently on unfractionated heparin by continuous infusion. ALLERGIES: THE PATIENT REPORTS ALLERGIES TO SULFA DRUGS. REVIEW OF SYSTEMS: Ten-point review of systems essentially unremarkable except as stated in the past medical history and chief complaint. PHYSICAL EXAMINATION: GENERAL: This reveals a 64-year-old normally developed man, who is otherwise coherent and interactive, appears stated age. The patient is alert and oriented x3. He appears to be in no acute distress at the time of my evaluation. VITAL SIGNS: At the time of my evaluation included blood pressure of 159/102, pulse 124 and irregular, respiratory rate is 20, maximum temperature in the last 24 hours is 98.6 degrees Fahrenheit, oxygen saturation 97% on 2 L by nasal cannula oxygen. HEENT: Normocephalic and atraumatic. Pupils are equal, round, reactive to light and accommodation. He has no scleral icterus present. HEART: Reveals irregular rate and irregular rhythm. LUNGS: Clear to auscultation bilaterally. Breathing, regular and nonlabored. ABDOMEN: Soft, moderately distended. He has mild tenderness in the right upper quadrant with no Martins sign present. Liver and spleen are otherwise nonpalpable below the costal margin. LABORATORY FINDINGS: Includes a CBC with 4900 white blood cells, hemoglobin and hematocrit 13.1 and 44.2 respectively. The platelet count is 140,000. Metabolic profile; sodium 132, potassium 4.1, chloride is 99, bicarb is 22, BUN 10, creatinine is 0.74, glucose is 116. AST and ALT 191 and 208 respectively. Total bilirubin is 1.6. I have personally reviewed the CT scan of the abdomen and pelvis, which is pertinent for distended gallbladder. I also reviewed a prior ultrasound of the abdomen, which was obtained on 05/16/2019, that revealed a distended gallbladder with no pericholecystic fluid or gallstones present. Common bile duct was normal in diameter at 3.5 mm. A HIDA scan, which was also obtained on 05/17/2019, gallbladder was visualized within 10 minutes; however, uptake within the small bowel was delayed and ejection fraction was noted at 16%. IMPRESSION: 1. Acute on chronic acalculous cholecystitis. 2. Acute paroxysmal atrial fibrillation with rapid ventricular response. 3. Heparin-induced coagulopathy. PLAN: 1. We will proceed with laparoscopic cholecystectomy with intraoperative cholangiogram within a heparin window. 2. The patient is undergoing cardioversion today and hopefully his cardiac rate will be controlled prior to any surgical intervention. Above findings and plan discussed with the patient in the presence of his nurse. He indicated understanding of information given. I have advised the patient of the risks and benefits of the proposed surgery to include, but not limited to bleeding, infection, injury to bile duct or surrounding structures. The patient indicated understanding of the information given. I have answered his questions. Thank you again, Dr. Hoskins for allowing me the opportunity to participate in the care of this patient. Job ID: [id number]
[2019-08-01 03:49] LABS: #Basophils 0.1 thou/uL (0.0-0.2); #Eosinphils 0.1 thou/uL (0.0-0.7); #Lymphocytes 1.3 thou/uL (1.20-3.40); #Monocytes 0.7 thou/uL (0.11-0.59); %Basophils 1.1 % (0.0-1.0); %Eosinophils 2.4 % (0.0-10.0); %Lymphocytes 21.3 % (21.0-51.0); %Monocytes 11.4 % (0.0-10.0); %Neutrophils 63.8 % (42.0-75.0); Hemoglobin 13.6 g/dL (14.0-18.0); Mean Corpuscular HGB CONC 35.2 g/dL (32.0-36.0); Mean Corpuscular Hemoglobin 36.6 pg (27.0-31.0); Mean Platelet Volume 8.1 fL (7.4-10.4); Platelet Count 129 thou/uL (130-400); RBC Distribution Width 12.9 % (11.5-14.5); Red Blood Cell (RBC) Count 3.73 mill/uL (4.70-6.10); White Blood Cell (WBC) Count 6.3 thou/uL (4.8-10.8)
[2019-08-01 04:13] LABS: ALT (SGPT) 195 U/L (8-55); AST (SGOT) 148 U/L (5-34); Albumin 3.9 g/dL (3.4-4.8); Alkaline Phosphatase 65 U/L (40-110); Anion Gap 14 mmol/L (10-20); BUN (Urea Nitrogen) 16 mg/dL (8.4-25.7); Calc. Creatinine Clearance 147 mL/min (70-130); Calcium 9.1 mg/dL (7.8-10.44); Carbon Dioxide 23 mmol/L (23-31); Chloride 101 mmol/L (98-107); Estimated GFR-MDRD Greater than 90; Glucose 105 mg/dL (80-115); Potassium 3.8 mmol/L (3.5-5.1); Protein, Total 6.9 g/dL (5.8-8.1); Sodium 134 mmol/L (136-145)
[2019-08-01] MEDS: Amlodipine 5 MG TAB PO SCH (06:02)
[2019-08-01] MEDS: Hydrochlorothiazide 25 MG TAB PO SCH (06:02)
[2019-08-01] MEDS: Magnesium Oxide 400 MG TAB PO SCH (08:34)
[2019-08-01] MEDS: Folic Acid 1 MG TAB PO SCH (08:34)
[2019-08-01] MEDS: Multivitamin W/ Minerals 1 TAB PO SCH (08:34)
[2019-08-01] MEDS: Thiamine 100 MG TAB PO SCH (08:34)
[2019-08-01] MEDS: Dronedarone HCl 400 MG TAB PO SCH ×2 (08:34→17:34)
[2019-08-01] MEDS ORDERED: TICAGRELOR 90 MG TABLET PO SCH (09:00)
--- NOTE | 2019-08-01 09:29 | PRG ---
DATE OF SERVICE: 08/01/2019 SUBJECTIVE: Mr. Schmitt is doing well remains in sinus rhythm. OBJECTIVE: VITAL SIGNS: Blood pressure 164/86, pulse 99, respirations 20. LUNGS: Clear to auscultation. HEART: Regular rate and rhythm. ABDOMEN: Soft, nontender, and nondistended. EXTREMITIES: No edema. IMPRESSION: 1. Atrial fibrillation. 2. Coronary artery disease. 3. Status post stent placement. 4. Cholecystitis. RECOMMENDATIONS: 1. Reinstitute Brilinta and aspirin. 2. Heparin has been discontinued due to anticipated surgery today at noon. 3. The patient continues to remain in sinus rhythm on Multaq. 4. We would recommend once okay with General Surgery to institute Eliquis 5 mg one p.o. b.i.d. in addition to Brilinta 90 b.i.d. We would not use triple therapy, and we will discontinue aspirin. Job ID: [id number]
[2019-08-01] MEDS: Aspirin 81 mg Enteric Coated Tablet PO SCH (10:04)
[2019-08-01 10:17] LABS: Platelet Count 136 thou/uL (130-400)
--- NOTE | 2019-08-01 10:19 | PDOC.EP ---
- Subjective Date: 08/01/19 Time: 08:00 Interval History: Patient feels fair today as he weights for his upcoming procedure regarding his gallbladder. He has not had any heart racing, palpitations or cardiac symptoms since undergoing a WILI guided cardioversion yesterday - Review of Systems Constitutional: denies: chills, fever, sweats, weakness Respiratory: denies: cough, pleuritic pain, shortness of breath, sputum, wheezing Cardiology: denies: chest pain, edema, heart racing, light headedness, palpitations, passing out Gastrointestinal: reports: abdominal pain, nausea. denies: diarrhea Musculoskeletal: denies: unstable gait, falls, leg pain - Objective Allergies/Adverse Reactions: Allergies Allergy/AdvReac Type Severity Reaction Status Date / Time Sulfa (Sulfonamide Allergy Verified 05/16/19 15:57 Antibiotics) Current Medications Acetaminophen (Tylenol) 650 mg PO Q4H PRN PRN Reason: Headache/Fever/Mild Pain (1-3) Acetaminophen (Tylenol) 650 mg [place] Q4H PRN PRN Reason: Headache/Fever/Mild Pain (1-3) Hydrocodone Bitart/Acetaminophen ([place] 5/325) 1 tab PO Q4H PRN PRN Reason: Moderate Pain (4-6) Hydrocodone Bitart/Acetaminophen ([place] 5/325) 2 tab PO Q4H PRN PRN Reason: Severe Pain (7-10) Amlodipine Besylate (Norvasc) 5 mg PO 0600 [facility] Last Admin: 08/01/19 06:02 Dose: 5 mg Artificial Tears (Tears Naturale) 2 drop EA EYE PRN PRN PRN Reason: Dry Eyes Aspirin (Ecotrin) 81 mg PO DAILY [facility] Last Admin: 08/01/19 10:04 Dose: Not Given Bisacodyl (Dulcolax) 10 mg [place] DAILYPRN PRN PRN Reason: Constipation Diazepam (Valium) 5 mg PO Q4H PRN PRN Reason: FOR ASE 10 OR GREATER Last Admin: 07/30/19 21:41 Dose: 5 mg Dronedarone (Multaq) 400 mg PO BID-[facility] Last Admin: 08/01/19 08:34 Dose: Not Given Folic Acid (Folvite) 1 mg PO DAILY [facility] Last Admin: 08/01/19 08:34 Dose: Not Given Guaifenesin (Robitussin Sf) 200 mg PO Q4H PRN PRN Reason: Cough Heparin Sodium (Porcine) (Heparin 1,000 Units/Ml (10 Ml)) 0 units SLOW IVP ASDIR [facility]; Protocol Last Admin: 08/01/19 00:24 Dose: 3,390 unit Hydralazine HCl (Apresoline) 10 mg SLOW IVP Q4H PRN PRN Reason: SBP Greater Than 180 Hydrochlorothiazide (Hydrochlorothiazide) 25 mg PO 0600 [facility] Last Admin: 08/01/19 06:02 Dose: 25 mg Heparin Sodium/Dextrose (Heparin 25,000 Units/D5w) 500 mls @ 0 mls/hr IVPB INF [facility]; Protocol Last Admin: 07/31/19 15:10 Dose: 500 mls Iron/Minerals/Multivitamins (Theragran M) 1 tab PO DAILY [facility] Last Admin: 08/01/19 08:34 Dose: Not Given Labetalol HCl (Normodyne) 10 mg SLOW IVP Q4H PRN PRN Reason: SBP Greater Than 180 Last Admin: 07/29/19 20:15 Dose: 2 ml Loperamide HCl (Imodium) 2 mg PO PRN PRN PRN Reason: Diarrhea/Loose Stools Loratadine (Claritin) 10 mg PO DAILYPRN PRN PRN Reason: Sinus Symptoms Lorazepam (Ativan) 2 mg SLOW IVP Q6H PRN PRN Reason: Anxiety/Agitation Magnesium Oxide (Magnesium Oxide) 400 mg PO DAILY [facility] Last Admin: 08/01/19 08:34 Dose: Not Given Metoprolol Succinate (Toprol Xl) 25 mg PO DAILY [facility] Last Admin: 08/01/19 08:34 Dose: 25 mg Morphine Sulfate (Morphine) 2 mg SLOW IVP Q4H PRN PRN Reason: Pain Ondansetron HCl (Zofran Odt) 4 mg PO Q6H PRN PRN Reason: Nausea/Vomiting Last Admin: 07/29/19 02:38 Dose: 4 mg Ondansetron HCl (Zofran) 4 mg IVP Q6H PRN PRN Reason: Nausea/Vomiting Pantoprazole Sodium (Protonix) 40 mg PO DAILY [facility] Last Admin: 08/01/19 08:34 Dose: Not Given Senna/Docusate Sodium (Senokot S) 2 tab PO BIDPRN PRN PRN Reason: Constipation Sodium Chloride (Flush - Normal Saline) 10 ml IVF Q12HR [facility] Last Admin: 08/01/19 08:34 Dose: 10 ml Sodium Chloride (Flush - Normal Saline) 10 ml IVF PRN PRN PRN Reason: Saline Flush Sodium Chloride ([place]oehner Nasal [place] 0.65%) 0 ml EA NARE QIDPRN PRN PRN Reason: Nasal Congestion Thiamine HCl (Thiamine) 100 mg PO DAILY [facility] Last Admin: 08/01/19 08:34 Dose: Not Given Throat Lozenges (Cepastat Lozenges) 1 hari PO Q2H PRN PRN Reason: Sore Throat Ticagrelor (Brilinta) 90 mg PO BID SCOOTER Zolpidem Tartrate (Ambien) 5 mg PO HSPRN PRN PRN Reason: Insomnia Vital Signs & Weight: Vital Signs Temp Pulse BP BP Pulse Ox 08/01/19 07:52 99 08/01/19 07:51 164/86 H 08/01/19 07:33 97.4 F L 08/01/19 06:02 64 176/91 H 08/01/19 05:59 98.0 F 176/91 H 08/01/19 04:06 97.2 F L 08/01/19 04:00 166/89 H 08/01/19 02:24 161/79 H 08/01/19 00:30 148/76 H 07/31/19 23:37 96.8 F L 07/31/19 23:25 182/97 H Admit Weight 248 lb 9.6 oz Weight 239 lb 14.4 oz I/O: I/O 07/31/19 08/01/19 08/02/19 06:59 06:59 06:59 Intake Total 2190 1066 Output Total 2785 1200 Balance -2068 -251 - Quality Measures Condition: Atrial Fibrillation/Flutter (hx or current) - Physical Exam General: alert & oriented x3, appears well, no apparent distress, speech clear, affect appropriate HEENT: mucus membranes moist, normocephaly Neck: supple neck, midline trachea, no lymphadenopathy Cardiology: regular rate and rhythm, PMI nondisplaced Lungs: clear to auscultation, normal breath sounds, no wheeze, rales, rhonchi Neurology: cranial nerve 2-12 intact, grossly intact, no lateralizing findings Abdomen: unremarkable, no pulsations/bruits Extremities: dry, strong pulses, warm Skin: groin sites stable - Chadsvasc Risk factors Hypertension: 1 Vascular disease: 1 Risk Score: 2 - Labs Result Diagrams: 08/01/19 10:06 08/01/19 03:14 - EKG Interpretation EKG Method: Telemetry EKG shows: Sinus rhythm - Assessment/Plan Assessment/Plan: 1. Atrial fibrillation -s/p WILI/CV 07/31/19 -Multaq 2. HTN - per cardiology - switching from CCB to BB 3. Acute cholecystitis - lap nereida planned for 07/31 4. CAD - recent PCI on Brillinta 5. ETOH abuse - needs to quit as he is on Multaq and anticoagulation. High risk for liver dysfunction and coagulopathies with continues alcohol abuse. Continue Multaq. Will need Brillinta with recent PCI. NOAC is indicated based on CHADS-VASC score but does place him at some risk for bleeding complications with his alcohol consumption. This was discussed with the patient. Recommend Eliquis 5mg BID or Xarelto 20mg daily with Brillinta once these can safely be started post operatively. He will not require ASA once NOAC therapy is started.
--- NOTE | 2019-08-01 10:46 | PDOC.HOSPP ---
- Subjective Encounter Date: 08/01/19 Encounter Time: 10:45 Subjective: Patient seen and examined. No new complaints. No overnight events - Objective Vital Signs & Weight: Vital Signs (12 hours) Temp Pulse BP BP Pulse Ox 08/01/19 07:52 99 08/01/19 07:51 164/86 H 08/01/19 07:33 97.4 F L 08/01/19 06:02 64 176/91 H 08/01/19 05:59 98.0 F 176/91 H 08/01/19 04:06 97.2 F L 08/01/19 04:00 166/89 H 08/01/19 02:24 161/79 H 08/01/19 00:30 148/76 H 07/31/19 23:37 96.8 F L 07/31/19 23:25 182/97 H Weight Admit Weight 248 lb 9.6 oz Weight 239 lb 14.4 oz Most Recent Monitor Data Heart Rate from ECG 70 NIBP 181/118 NIBP BP-Mean 139 Respiration from ECG 7 SpO2 96 I&O: 07/31/19 08/01/19 08/02/19 06:59 06:59 06:59 Intake Total 3740 1066 Output Total 5525 1200 Balance -1785 -134 Result Diagrams: 08/01/19 10:06 08/01/19 03:14 Hospitalist ROS - Review of Systems ENT: denies: ear pain, ear discharge, nose pain, nose discharge, nose congestion , mouth pain, mouth swelling, throat pain, throat swelling, other Respiratory: denies: cough, dry, shortness of breath, hemoptysis, SOB with excertion, pleuritic pain, sputum, wheezing, other Cardiovascular: denies: chest pain, palpitations, orthopnea, paroxysmal noc. dyspnea, edema, light headedness, other Gastrointestinal: denies: nausea, vomiting, abdominal pain, diarrhea, constipation, melena, hematochezia, other Genitourinary: denies: dysuria, frequency, incontinence, hematuria, retention, other Musculoskeletal: denies: neck pain, shoulder pain, arm pain, back pain, hand pain, leg pain, foot pain, other Skin: denies: rash, lesions, luis, bruising, other - Medication Medications: Active Medications Generic Name Dose Route Start Last Admin Trade Name Freq PRN Reason Stop Dose Admin Amlodipine Besylate 5 mg 07/30/19 06:00 08/01/19 06:02 Norvasc PO 5 mg 0600 [facility] Administration Aspirin 81 mg 08/01/19 09:00 08/01/19 10:04 Ecotrin PO Not Given DAILY [facility] Diazepam 5 mg 07/30/19 04:00 07/30/19 21:41 Valium PO 5 mg Q4H PRN Administration FOR ASE 10 OR GREATER Dronedarone 400 mg 07/31/19 17:00 08/01/19 08:34 Multaq PO Not Given BID-[facility] Folic Acid 1 mg 07/29/19 09:00 08/01/19 08:34 Folvite PO Not Given DAILY [facility] Heparin Sodium (Porcine) 0 units 07/30/19 10:00 08/01/19 00:24 Heparin 1,000 Units/Ml (10 Ml) SLOW IVP 3,390 unit ASDIR [facility] Administration Protocol Hydrochlorothiazide 25 mg 07/30/19 06:00 08/01/19 06:02 Hydrochlorothiazide PO 25 mg 0600 [facility] Administration Heparin Sodium/Dextrose 500 mls @ 0 mls/hr 07/30/19 10:00 07/31/19 15:10 Heparin 25,000 Units/D5w IVPB 500 mls INF [facility] Administration Protocol Per Protocol Iron/Minerals/Multivitamins 1 tab 07/29/19 09:00 08/01/19 08:34 Theragran M PO Not Given DAILY [facility] Labetalol HCl 10 mg 07/29/19 12:09 07/29/19 20:15 Normodyne SLOW IVP 2 ml Q4H PRN Administration SBP Greater Than 180 Magnesium Oxide 400 mg 07/30/19 09:00 08/01/19 08:34 Magnesium Oxide PO Not Given DAILY [facility] Metoprolol Succinate 25 mg 08/01/19 09:00 08/01/19 08:34 Toprol Xl PO 25 mg DAILY [facility] Administration Ondansetron HCl 4 mg 07/28/19 23:33 07/29/19 02:38 Zofran Odt PO 4 mg Q6H PRN Administration Nausea/Vomiting Pantoprazole Sodium 40 mg 08/01/19 09:00 08/01/19 08:34 Protonix PO Not Given DAILY [facility] Sodium Chloride 10 ml 07/30/19 21:00 06/18/20 08:34 Flush - Normal Saline IVF 10 ml Q12HR [facility] Administration Thiamine HCl 100 mg 07/30/19 09:00 08/01/19 08:34 Thiamine PO Not Given DAILY [facility] - Exam General Appearance: NAD, awake alert Eye: PERRL, anicteric sclera ENT: normocephalic atraumatic, no oropharyngeal lesions Neck: supple, symmetric, no JVD Heart: RRR, no murmur, no gallops, no rubs Respiratory: CTAB, no wheezes, no rales Gastrointestinal: soft, non-tender, non-distended Extremities: no cyanosis, no clubbing Skin: normal turgor, no lesions Neurological: cranial nerve grossly intact, no focal deficits Musculoskeletal: normal tone, normal strength Psychiatric: normal affect, normal behavior Hosp A/P (1) Atrial fibrillation, new onset Code(s): I48.91 - UNSPECIFIED ATRIAL FIBRILLATION Status: Acute (2) Chronic calculous cholecystitis Code(s): K80.10 - CALCULUS OF GALLBLADDER W CHRONIC CHOLECYST W/O OBSTRUCTION Status: Acute (3) Alcoholic fatty liver Code(s): K70.0 - ALCOHOLIC FATTY LIVER Status: Chronic (4) Elevated LFTs Code(s): R79.89 - OTHER SPECIFIED ABNORMAL FINDINGS OF BLOOD CHEMISTRY Status : Acute (5) Medical non-compliance Code(s): Z91.19 - PATIENT'S NONCOMPLIANCE W OTH MEDICAL TREATMENT AND REGIMEN Status: Acute (6) CAD (coronary artery disease) Code(s): I25.10 - ATHSCL HEART DISEASE OF [place] CORONARY ARTERY W/O ANG PCTRS Status: Chronic (7) Depression Code(s): F32.9 - MAJOR DEPRESSIVE DISORDER, SINGLE EPISODE, UNSPECIFIED Status : Chronic (8) HLD (hyperlipidemia) Code(s): E78.5 - HYPERLIPIDEMIA, UNSPECIFIED Status: Chronic (9) HTN (hypertension) Code(s): I10 - ESSENTIAL (PRIMARY) HYPERTENSION Status: Chronic (10) Obesity Code(s): E66.9 - OBESITY, UNSPECIFIED Status: Chronic Qualifiers: Obesity classification: adult class 1 (BMI 30 - 34.9) (11) Tobacco abuse Code(s): Z72.0 - TOBACCO USE Status: Chronic (12) Folate deficiency Code(s): E53.8 - DEFICIENCY OF OTHER SPECIFIED B GROUP VITAMINS Status: Chronic - Plan old records reviewed/req today plan for WILI and possible cardioversion continue heparin drip possible surgery tomorrow for gall bladder folic acid dc ivf continue nilay cadet as per EP 08/01/19 s/p cardioversion today lap nereida continue brilinta after surgery will start elliquis cardiology recommendation noted transfer to tele after surgery if doing well, will consider dc tomorrow am
[2019-08-01 12:01] VITALS: BMI 32.5
[2019-08-01] MEDS ORDERED: EPHEDRINE 25 MG/5 ML SYRINGE ONE (14:41)
[2019-08-01] MEDS ORDERED: Ondansetron PF 4 MG/2 ML Vial ONE (14:41)
[2019-08-01] MEDS ORDERED: Rocuronium Bromide 10 MG/ML (10ML VIAL) ONE (14:41)
[2019-08-01] MEDS ORDERED: Lidocaine 1% PF 5 ML VIAL ONE (14:41)
[2019-08-01] MEDS ORDERED: PROPOFOL 200 MG/20 ML VIAL ONE (14:41)
[2019-08-01] MEDS ORDERED: Glycopyrrolate 0.2 MG/ML 5 ML SYRINGE ONE (14:41)
[2019-08-01] MEDS: TICAGRELOR 90 MG TABLET PO SCH (17:35)
[2019-08-01] MEDS ORDERED: Bupivacaine 0.25% HCL 30 ML VIAL ONE (20:19)
[2019-08-01] MEDS ORDERED: Lidocaine 1% w/Epinephrine 1:100K 20 ML VIAL ONE (20:19)
[2019-08-01] MEDS ORDERED: Iopamidol 50 ML FS ONE (20:19)
[2019-08-01] MEDS ORDERED: Midazolam HCl 2 mg/2 ml Vial ONE (20:34)
[2019-08-01] MEDS ORDERED: Fentanyl 100 MCG/2 ML VIAL ONE ×3 (20:34→23:19)
--- NOTE | 2019-08-01 22:21 | RAD ---
EXAM: XR Cholangiogram in Surgery PROVIDED CLINICAL HISTORY: Cholecystectomy COMPARISON: None FINDINGS/IMPRESSION: 3 intraoperative fluoroscopic images of the right upper quadrant of the abdomen are provided. Surgica l clips overlie the right upper quadrant. The cystic duct is cannulated. Surgical clips are seen overlying the cystic duct. There is evidence of extravasation of contrast outside of the cystic duct. The common duct is opacified without filling defect seen to suggest calculus based on this exam. There is evidence of free spill of contrast into the duodenum. The intrahepatic ducts are not opacifi ed on this exam. Correlation with intraoperative findings is recommended. Fluoroscopy: Time-24 seconds Dose-4.75 mGy
[2019-08-01] MEDS ORDERED: Promethazine HCl 25 MG/ML VIAL IM PRN (22:45)
[2019-08-01] MEDS ORDERED: Promethazine HCl 25 MG/ML VIAL SLOW IVP PRN (22:45)
[2019-08-01] MEDS ORDERED: Ondansetron HCl/PF 4 MG/2 ML Vial IVP PRN (22:45)
[2019-08-01] MEDS ORDERED: traMADol HCl 50 MG TAB PO PRN ×2 (22:47)
[2019-08-01] MEDS ORDERED: Ketorolac Tromethamine 30 MG/ML VIAL ONE (22:48)
[2019-08-01] MEDS ORDERED: Ketorolac Tromethamine 30 MG/ML VIAL IVP SCH (23:15)
[2019-08-02] MEDS: Acetaminophen 325 MG TAB PO SCH ×5 (00:05→21:43)
--- NOTE | 2019-08-02 02:35 | OP ---
DATE OF PROCEDURE: 08/01/2019 PREOPERATIVE DIAGNOSIS: Acute cholecystitis with elevated LFTs. POSTOPERATIVE DIAGNOSIS: Acute cholecystitis with elevated LFTs. OPERATIONS PERFORMED: 1. Laparoscopic cholecystectomy. 2. Intraoperative cholangiogram. ANESTHESIA: General endotracheal. ESTIMATED BLOOD LOSS: 50 mL. FLUIDS GIVEN: 1000 mL crystalloids. COUNTS: Sponge and instrument counts were verified as correct x2. COMPLICATIONS: None apparent at the time of operation. INDICATIONS FOR OPERATION: A 64-year-old man, recent [id number] myocardial infarction, was admitted with abdominal pain of postprandial in nature. Clinical and radiographic examination were consistent with acute cholecystitis, for which the patient was brought to the operating room today for cholecystectomy. The LFTs were also elevated. Therefore, intraoperative cholangiogram was warranted. Findings are consistent with distended gallbladder in the usual anatomic location completely encased by omental adhesions. Fluoroscopy also reveals no ductal filling defects. DESCRIPTION OF PROCEDURE: Informed consent was obtained from the patient. He was brought to the operating room and placed in supine position. Following general anesthesia, abdomen was sterilely prepped and draped in usual fashion. The skin below the umbilicus was infiltrated with 0.25% Marcaine with epinephrine. A small curvilinear infraumbilical incision was made using 11 scalpel. Umbilical stalk was grasped with Jose D and elevated. Veress needle was inserted through the incision and placed in the peritoneal cavity, through which the abdomen was insufflated with 3.5 L of CO2 gas. Intraabdominal pressure was noted at 2 mmHg. Following abdominal insufflation, Veress needle was removed, and a 5 mm trocar was introduced using a Visiport under laparoscopy. Laparoscopy confirmed proper placement of the port, no injuries to underlying structures. Additional laparoscopy revealed the right upper quadrant encased by omental adhesions. Under direct laparoscopy, a 12 mm epigastric and two 5 mm right lateral subcostal ports were placed after the overlying skin was infiltrated with 0.25% Marcaine with epinephrine, and appropriate incision was made. The patient was placed in a reverse Trendelenburg position, rotated to his left. I used a [place] dissector with cautery to take down omental adhesions to reveal the fundus of distended gallbladder. Prestige grasper was introduced through the right lateral subcostal port grasping the fundus of the gallbladder, which was elevated cephalad. Omental adhesions were then taken down from the remainder of the gallbladder with good hemostasis. A second Prestige grasper was introduced through the right medial subcostal port grasping the Juanjose pouch, which was retracted laterally. I then used a [place] dissector with cautery to open the peritoneum off the gallbladder at the gallbladder neck. The cystic duct and cystic artery were dissected free from surrounding structures. Critical view was obtained. A cystotomy was made in the cystic duct, and cholangiocatheter was introduced in the right upper quadrant and inserted into the cystic duct lumen and secured with 2 clips. It was flushed easily with saline. Cholangiogram was then completed using a total of 25 mL of Conray contrast. No filling defects were noted within the duct lumen. Fluoroscopy time was noted at 24 seconds. Following cholangiogram, securing clips were removed, and the cystic duct was divided between clips applying 2 clips proximally and 1 clip at the junction of the cystic duct and gallbladder. The cystic artery was divided between clips in a similar fashion. The gallbladder itself was removed from the liver bed using cautery and delivered of the abdominal cavity using the EndoCatch. The gallbladder fossa was oozy of scant amount of venous blood given the patient was restarted on anticoagulation relatively soon. Hemostasis was achieved at the gallbladder fossa readily using Jeanne. Finding, no other pathology. Laparoscopy was terminated. Fascia of the epigastric port was closed using 0 Vicryl suture and Endo Close device on the laparoscopy. The abdomen was desufflated. All sponges and instruments were removed and accounted for. Skin incision was closed using 4-0 Monocryl suture in subcuticular fashion. Dermabond was applied over incisional closure. The patient tolerated the procedure without any apparent complications and was returned to recovery room in satisfactory condition. Job ID: [id number]
[2019-08-02] MEDS: HYDROcodone/Acetaminophen 5/325 mg Tablet PO PRN ×4 (03:13→21:10)
[2019-08-02 03:32] LABS: Band 26 % (5-11); Hemoglobin 13.8 g/dL (14.0-18.0); Lymphocytes 11 % (21-51); MDiff Complete? YES; Mean Corpuscular Hemoglobin 36.1 pg (27.0-31.0); Mean Platelet Volume 7.7 fL (7.4-10.4); Monocytes 5 % (0-10); Neutrophil 58 % (42-75); Platelet Count 124 thou/uL (130-400); Platelet Morphology Comment Appears Adequate; RBC Distribution Width 12.8 % (11.5-14.5); Red Blood Cell (RBC) Count 3.82 mill/uL (4.70-6.10); White Blood Cell (WBC) Count 7.8 thou/uL (4.8-10.8)
[2019-08-02 03:43] LABS: ALT (SGPT) 256 U/L (8-55); AST (SGOT) 208 U/L (5-34); Alkaline Phosphatase 68 U/L (40-110); Anion Gap 14 mmol/L (10-20); BUN (Urea Nitrogen) 14 mg/dL (8.4-25.7); Calc. Creatinine Clearance 127 mL/min (70-130); Calcium 9.1 mg/dL (7.8-10.44); Carbon Dioxide 26 mmol/L (23-31); Chloride 97 mmol/L (98-107); Estimated GFR-MDRD 82; Globulin 2.8 g/dL (2.4-3.5); Glucose 125 mg/dL (80-115); Magnesium 1.8 mg/dL (1.6-2.6); Potassium 3.7 mmol/L (3.5-5.1); Protein, Total 6.8 g/dL (5.8-8.1); Sodium 133 mmol/L (136-145)
[2019-08-02] MEDS: Amlodipine 5 MG TAB PO SCH (05:05)
[2019-08-02] MEDS: Hydrochlorothiazide 25 MG TAB PO SCH (05:05)
--- NOTE | 2019-08-02 08:31 | PRG ---
DATE OF SERVICE: 08/02/2019 SUBJECTIVE: Mr. Schmitt is doing well. No current complaints. He underwent the surgery well. He does have soreness to his abdomen. OBJECTIVE: VITAL SIGNS: Blood pressure 130/76, pulse 71, temperature 97.7. LUNGS: Clear to auscultation. HEART: Regular rate and rhythm. ABDOMEN: Soft, nontender, nondistended. EXTREMITIES: No edema. IMPRESSION: 1. Atrial fibrillation, status post cardioversion. 2. Cholecystitis, status post laparoscopic cholecystectomy. RECOMMENDATIONS: 1. The patient is currently on Brilinta and aspirin, and would continue. 2. Once he is able to take novel oral anticoagulation therapy, would recommend Eliquis 5 mg p.o. b.i.d. 3. Once Eliquis is started, we would then discontinue aspirin and continue Brilinta. No further recommendations. Job ID: [id number]
--- NOTE | 2019-08-02 09:04 | OP ---
DATE OF PROCEDURE: 07/31/2019 PREOPERATIVE DIAGNOSIS: Atrial fibrillation. PROCEDURE PERFORMED: WILI. The patient was consented for the procedure. I discussed the procedure in full detail with Mr. Schmitt. Risks included, not limited to the following: Damage to teeth, mouth, back of throat; damage to esophagus, as well as reaction to medication. All questions answered. Given the above, patient agreed to proceed with the above procedure. DESCRIPTION OF PROCEDURE: Conscious sedation performed with propofol. The probe passed easily into the esophagus. FINDINGS: The left atrial appendage well visualized. No mass or vegetation present. Velocities appear at 50 cm/second. IMPRESSION: No obvious mass in the left atrial appendage. Job ID: [id number]
--- NOTE | 2019-08-02 09:05 | OP ---
DATE OF PROCEDURE: 07/31/2019 PREPROCEDURE DIAGNOSIS: Atrial fibrillation. POSTPROCEDURE DIAGNOSIS: Sinus rhythm. PROCEDURE PERFORMED: Synchronized cardioversion. DESCRIPTION OF PROCEDURE: Propofol used for conscious sedation. The patient underwent successful synchronized cardioversion x1 at 150 joules. IMPRESSION: Successful synchronized cardioversion. Job ID: [id number]
[2019-08-02] MEDS: Dronedarone HCl 400 MG TAB PO SCH ×2 (09:24→17:51)
[2019-08-02] MEDS: Thiamine 100 MG TAB PO SCH (09:24)
[2019-08-02] MEDS: Magnesium Oxide 400 MG TAB PO SCH (09:24)
[2019-08-02] MEDS: Multivitamin W/ Minerals 1 TAB PO SCH (09:25)
[2019-08-02] MEDS: Folic Acid 1 MG TAB PO SCH (09:25)
[2019-08-02] MEDS: Aspirin 81 mg Enteric Coated Tablet PO SCH (09:26)
--- NOTE | 2019-08-02 10:54 | PDOC.HOSPP ---
- Subjective Encounter Date: 08/02/19 Encounter Time: 07:45 Subjective: Patient seen and examined. No new complaints. No overnight events - Objective Vital Signs & Weight: Vital Signs (12 hours) Temp Pulse Resp BP Pulse Ox 08/02/19 08:24 97.9 F 69 18 143/83 H 96 08/02/19 03:16 97.7 F 71 18 130/76 99 08/01/19 23:36 97.9 F 70 20 147/78 H 95 Weight Admit Weight 248 lb 9.6 oz Weight 239 lb 14.4 oz Most Recent Monitor Data Heart Rate from ECG 61 NIBP 181/118 NIBP BP-Mean 139 Respiration from ECG 24 SpO2 98 I&O: 08/01/19 08/02/19 08/03/19 06:59 06:59 06:59 Intake Total 1066 490 Output Total 1200 400 Balance -134 90 Result Diagrams: 08/02/19 03:11 08/02/19 03:11 EKG Reviewed by me: Yes Hospitalist ROS - Review of Systems ENT: denies: ear pain, ear discharge, nose pain, nose discharge, nose congestion , mouth pain, mouth swelling, throat pain, throat swelling, other Respiratory: denies: cough, dry, shortness of breath, hemoptysis, SOB with excertion, pleuritic pain, sputum, wheezing, other Cardiovascular: denies: chest pain, palpitations, orthopnea, paroxysmal noc. dyspnea, edema, light headedness, other Gastrointestinal: denies: nausea, vomiting, abdominal pain, diarrhea, constipation, melena, hematochezia, other Genitourinary: denies: dysuria, frequency, incontinence, hematuria, retention, other Musculoskeletal: denies: neck pain, shoulder pain, arm pain, back pain, hand pain, leg pain, foot pain, other - Medication Medications: Active Medications Generic Name Dose Route Start Last Admin Trade Name Freq PRN Reason Stop Dose Admin Acetaminophen 650 mg 08/01/19 23:59 08/02/19 05:05 Tylenol PO Not Given Q6HR [facility] Hydrocodone Bitart/Acetaminophen 2 tab 07/28/19 23:33 08/02/19 08:30 [place] 5/325 PO 2 tab Q4H PRN Administration Severe Pain (7-10) Amlodipine Besylate 5 mg 07/30/19 06:00 08/02/19 05:05 Norvasc PO 5 mg 0600 [facility] Administration Diazepam 5 mg 07/30/19 04:00 07/30/19 21:41 Valium PO 5 mg Q4H PRN Administration FOR ASE 10 OR GREATER Dronedarone 400 mg 07/31/19 17:00 08/02/19 09:24 Multaq PO 400 mg BID-[facility] Administration Folic Acid 1 mg 07/29/19 09:00 08/02/19 09:25 Folvite PO 1 mg DAILY [facility] Administration Hydralazine HCl 10 mg 07/29/19 12:09 08/01/19 20:04 Apresoline SLOW IVP 10 mg Q4H PRN Administration SBP Greater Than 180 Hydrochlorothiazide 25 mg 07/30/19 06:00 08/02/19 05:05 Hydrochlorothiazide PO 25 mg 0600 [facility] Administration Iron/Minerals/Multivitamins 1 tab 07/29/19 09:00 08/02/19 09:25 Theragran M PO 1 tab DAILY [facility] Administration Labetalol HCl 10 mg 07/29/19 12:09 07/29/19 20:15 Normodyne SLOW IVP 2 ml Q4H PRN Administration SBP Greater Than 180 Magnesium Oxide 400 mg 07/30/19 09:00 08/02/19 09:24 Magnesium Oxide PO 400 mg DAILY [facility] Administration Metoprolol Succinate 25 mg 08/01/19 09:00 08/02/19 09:24 Toprol Xl PO 25 mg DAILY [facility] Administration Ondansetron HCl 4 mg 07/28/19 23:33 07/29/19 02:38 Zofran Odt PO 4 mg Q6H PRN Administration Nausea/Vomiting Pantoprazole Sodium 40 mg 08/01/19 09:00 08/02/19 09:25 Protonix PO 40 mg DAILY [facility] Administration Sodium Chloride 10 ml 07/30/19 21:00 08/02/19 09:26 Flush - Normal Saline IVF 10 ml Q12HR [facility] Administration Thiamine HCl 100 mg 07/30/19 09:00 08/02/19 09:24 Thiamine PO 100 mg DAILY [facility] Administration - Exam General Appearance: NAD, awake alert Eye: PERRL, anicteric sclera ENT: normocephalic atraumatic, no oropharyngeal lesions Neck: supple, symmetric, no JVD Heart: RRR, no murmur, no gallops, no rubs Respiratory: CTAB, no wheezes, no rales Gastrointestinal: soft, non-tender, non-distended, normal bowel sounds Extremities: no cyanosis, no clubbing Skin: normal turgor, no lesions Neurological: no focal deficits Musculoskeletal: normal tone, normal strength Psychiatric: normal affect, normal behavior Hosp A/P (1) Atrial fibrillation, new onset Code(s): I48.91 - UNSPECIFIED ATRIAL FIBRILLATION Status: Acute (2) Chronic calculous cholecystitis Code(s): K80.10 - CALCULUS OF GALLBLADDER W CHRONIC CHOLECYST W/O OBSTRUCTION Status: Acute (3) Alcoholic fatty liver Code(s): K70.0 - ALCOHOLIC FATTY LIVER Status: Chronic (4) Elevated LFTs Code(s): R79.89 - OTHER SPECIFIED ABNORMAL FINDINGS OF BLOOD CHEMISTRY Status : Acute (5) Medical non-compliance Code(s): Z91.19 - PATIENT'S NONCOMPLIANCE W OTH MEDICAL TREATMENT AND REGIMEN Status: Acute (6) CAD (coronary artery disease) Code(s): I25.10 - ATHSCL HEART DISEASE OF [place] CORONARY ARTERY W/O ANG PCTRS Status: Chronic (7) Depression Code(s): F32.9 - MAJOR DEPRESSIVE DISORDER, SINGLE EPISODE, UNSPECIFIED Status : Chronic (8) HLD (hyperlipidemia) Code(s): E78.5 - HYPERLIPIDEMIA, UNSPECIFIED Status: Chronic (9) HTN (hypertension) Code(s): I10 - ESSENTIAL (PRIMARY) HYPERTENSION Status: Chronic (10) Obesity Code(s): E66.9 - OBESITY, UNSPECIFIED Status: Chronic Qualifiers: Obesity classification: adult class 1 (BMI 30 - 34.9) (11) Tobacco abuse Code(s): Z72.0 - TOBACCO USE Status: Chronic (12) Folate deficiency Code(s): E53.8 - DEFICIENCY OF OTHER SPECIFIED B GROUP VITAMINS Status: Chronic - Plan old records reviewed/req today plan for WILI and possible cardioversion continue heparin drip possible surgery tomorrow for gall bladder folic acid dc ivf continue cardizem multaq as per EP 08/01/19 s/p cardioversion today lap nereida continue brilinta after surgery will start elliquis cardiology recommendation noted transfer to [facility] after surgery if doing well, will consider dc tomorrow am 06/19/20 as per surgeon continue heparin drip for now when surgeon ok, will change to oral anticoagulant discharge when cleared by all communication consultant
[2019-08-02 11:16] LABS: Hemoglobin 13.8 g/dL (14.0-18.0); Platelet Count 122 thou/uL (130-400)
--- NOTE | 2019-08-02 11:36 | PDOC.EP ---
- Subjective Date: 08/02/19 Time: 11:35 Interval History: Pt underwent WILI/CV and subsequent Lap nereida yesterday. Doing wll with minimal symptoms now. Still in SR. - Review of Systems Constitutional: denies: chills, fever, malaise, sweats, weakness, other Respiratory: denies: cough, dry, hemoptysis, pleuritic pain, shortness of breath , SOB with excertion, sputum, wheezing, other Cardiology: denies: chest pain, edema, heart racing, light headedness, paroxysmal noc. dyspnea, orthopnea, palpitations, passing out, pleuritic pain, pressure, swelling, other Gastrointestinal: reports: abdominal pain (Mild potop) Musculoskeletal: reports: unstable gait Neurological: denies: headache, vision changes, other - Objective Allergies/Adverse Reactions: Allergies Allergy/AdvReac Type Severity Reaction Status Date / Time Sulfa (Sulfonamide Allergy Verified 05/16/19 15:57 Antibiotics) Current Medications Acetaminophen (Tylenol) 650 mg PO Q6HR [facility] Last Admin: 08/02/19 05:05 Dose: Not Given Hydrocodone Bitart/Acetaminophen ([place] 5/325) 1 tab PO Q4H PRN PRN Reason: Moderate Pain (4-6) Hydrocodone Bitart/Acetaminophen ([place] 5/325) 2 tab PO Q4H PRN PRN Reason: Severe Pain (7-10) Last Admin: 08/02/19 08:30 Dose: 2 tab Amlodipine Besylate (Norvasc) 5 mg PO 0600 [facility] Last Admin: 08/02/19 05:05 Dose: 5 mg Artificial Tears (Tears Naturale) 2 drop EA EYE PRN PRN PRN Reason: Dry Eyes Bisacodyl (Dulcolax) 10 mg [place] DAILYPRN PRN PRN Reason: Constipation Diazepam (Valium) 5 mg PO Q4H PRN PRN Reason: FOR ASE 10 OR GREATER Last Admin: 07/30/19 21:41 Dose: 5 mg Dronedarone (Multaq) 400 mg PO BID-[facility] Last Admin: 08/02/19 09:24 Dose: 400 mg Folic Acid (Folvite) 1 mg PO DAILY [facility] Last Admin: 08/02/19 09:25 Dose: 1 mg Guaifenesin (Robitussin Sf) 200 mg PO Q4H PRN PRN Reason: Cough Heparin Sodium (Porcine) (Heparin 1,000 Units/Ml (10 Ml)) 0 units SLOW IVP WILLCALL [facility] Hydralazine HCl (Apresoline) 10 mg SLOW IVP Q4H PRN PRN Reason: SBP Greater Than 180 Last Admin: 08/01/19 20:04 Dose: 10 mg Hydrochlorothiazide (Hydrochlorothiazide) 25 mg PO 0600 [facility] Last Admin: 08/02/19 05:05 Dose: 25 mg Heparin Sodium/Dextrose (Heparin 25,000 Units/D5w) 500 mls @ 0 mls/hr IV INF [facility]; Protocol Iron/Minerals/Multivitamins (Theragran M) 1 tab PO DAILY [facility] Last Admin: 08/02/19 09:25 Dose: 1 tab Labetalol HCl (Normodyne) 10 mg SLOW IVP Q4H PRN PRN Reason: SBP Greater Than 180 Last Admin: 07/29/19 20:15 Dose: 2 ml Loperamide HCl (Imodium) 2 mg PO PRN PRN PRN Reason: Diarrhea/Loose Stools Loratadine (Claritin) 10 mg PO DAILYPRN PRN PRN Reason: Sinus Symptoms Lorazepam (Ativan) 2 mg SLOW IVP Q6H PRN PRN Reason: Anxiety/Agitation Magnesium Oxide (Magnesium Oxide) 400 mg PO DAILY [facility] Last Admin: 08/02/19 09:24 Dose: 400 mg Metoprolol Succinate (Toprol Xl) 25 mg PO DAILY [facility] Last Admin: 08/02/19 09:24 Dose: 25 mg Ondansetron HCl (Zofran Odt) 4 mg PO Q6H PRN PRN Reason: Nausea/Vomiting Last Admin: 07/29/19 02:38 Dose: 4 mg Ondansetron HCl (Zofran) 4 mg IVP Q6H PRN PRN Reason: Nausea/Vomiting Pantoprazole Sodium (Protonix) 40 mg PO DAILY [facility] Last Admin: 08/02/19 09:25 Dose: 40 mg Senna/Docusate Sodium (Senokot S) 2 tab PO BIDPRN PRN PRN Reason: Constipation Sodium Chloride (Flush - Normal Saline) 10 ml IVF Q12HR [facility] Last Admin: 08/02/19 09:26 Dose: 10 ml Sodium Chloride (Flush - Normal Saline) 10 ml IVF PRN PRN PRN Reason: Saline Flush Sodium Chloride ([place] Nasal [place] 0.65%) 0 ml EA NARE QIDPRN PRN PRN Reason: Nasal Congestion Thiamine HCl (Thiamine) 100 mg PO DAILY [facility] Last Admin: 08/02/19 09:24 Dose: 100 mg Throat Lozenges (Cepastat Lozenges) 1 hari PO Q2H PRN PRN Reason: Sore Throat Tramadol HCl (Ultram) 100 mg PO Q6H PRN PRN Reason: Severe Pain (7-10) Tramadol HCl (Ultram) 50 mg PO Q6H PRN PRN Reason: Moderate Pain (4-6) Zolpidem Tartrate (Ambien) 5 mg PO HSPRN PRN PRN Reason: Insomnia Vital Signs & Weight: Vital Signs Temp Pulse Resp BP Pulse Ox 08/02/19 08:24 97.9 F 69 18 143/83 H 96 08/02/19 03:16 97.7 F 71 18 130/76 99 08/01/19 23:36 97.9 F 70 20 147/78 H 95 Admit Weight 248 lb 9.6 oz Weight 239 lb 14.4 oz I/O: I/O 08/01/19 08/02/19 08/03/19 06:59 06:59 06:59 Intake Total 1066 490 Output Total 1200 400 Balance -134 90 - Quality Measures Condition: Atrial Fibrillation/Flutter (hx or current) (On IV Heparin. Will need OAC on discharge) - Physical Exam General: alert & oriented x3 Neck: supple neck, no JVD/HJR Cardiology: regular rate and rhythm, no murmur Lungs: clear to auscultation, no wheezes, no rales Neurology: grossly intact Abdomen: unremarkable, tender (Mild postop pain.) Extremities: warm Musculoskeletal: no pain - Chadsvasc Risk factors Hypertension: 1 Risk Score: 1 - Labs Result Diagrams: 08/02/19 10:43 08/02/19 03:11 - EKG Interpretation Status: image reviewed by me EKG Method: Telemetry EKG shows: Sinus rhythm - Problem (1) Atrial fibrillation, new onset Code(s): I48.91 - UNSPECIFIED ATRIAL FIBRILLATION - Assessment/Plan Assessment/Plan: 1. Atrial fibrillation-> Atrial flutter -s/p WILI/CV 07/31/19 -On Multaq. In SR 2. HTN - per cardiology - switching from CCB to BB 3. Acute cholecystitis - lap nereida performed 07/31 PM - N/V improved. 4. CAD - recent PCI on Brillinta 5. ETOH abuse - needs to quit as he is on Multaq and anticoagulation. High risk for liver dysfunction and coagulopathies with continues alcohol abuse. Discussed. pt is agreeable. Continue Multaq. Will need Brillinta with recent PCI. NOAC is indicated based on CHADS-VASC score but does place him at some risk for bleeding complications with his alcohol consumption. This was discussed with the patient. Recommend Eliquis 5mg BID or Xarelto 20mg daily with Brillinta once these can safely be started post operatively. He will not require ASA once NOAC therapy is started. Plan outpt follow up in 6 weeks. Could consider outpt PVI post recovery especially if recurrence of afib is seen. Would Sign off. Call if questions. Thank you!
[2019-08-02] MEDS: Heparin 25,000 units/D5W 500 ML IV SCH (11:46)
--- NOTE | 2019-08-02 14:10 | PRG ---
DATE OF SERVICE: 08/02/2019 SUBJECTIVE: The patient was seen this morning during rounds. He was sitting up in bed. He is postoperative day #1, status post laparoscopic cholecystectomy with intraoperative cholangiogram for acute cholecystitis. The patient also being treated for AFib with RVR. Primary Team asking to start antiplatelet and full anticoagulation via p.o. route. We did request that they continue to hold this today, earliest start would be postoperative day #2. In the meantime, Dr. Maxwellha to continue with heparin drip. OBJECTIVE: VITAL SIGNS: Temperature 97.9, pulse 69, respirations 18, oxygen saturation 96% on room air, and blood pressure 143/83. GENERAL: Well-appearing middle-aged man, sitting up at the edge of the bed with no signs of acute distress. PULMONARY: Equal chest rise and fall. Clear breath sounds bilaterally. No signs of acute respiratory distress. CARDIAC: Regular rate and rhythm. GI: Abdomen is soft, appropriately tender to palpation, and mildly distended. His incision sites are clean, dry, and intact with no signs of oozing or infection. EXTREMITIES: 2+ pulses in all extremities. Gross motor and sensation are intact. No significant swelling noted. NEUROLOGIC: GCS is 15. LABORATORY FINDINGS: White count 7.8, hemoglobin 13.8, hematocrit 38.5, and platelets 124. Sodium 133, potassium 3.7, chloride 97, bicarb 26, BUN 15, creatinine 0.93, glucose 125, phosphorus 5.0, magnesium 1.8, total bilirubin 1.0 , AST 208, ALT 256, alkaline phosphatase 68. DIAGNOSTIC FINDINGS: There are no new diagnostic findings to report. ASSESSMENT: Postop day #1, status post laparoscopic cholecystectomy with intraoperative cholangiogram for acute cholecystitis. PLAN: Continue current heart-healthy diet. The patient to restart heparin drip. We can start Brilinta, aspirin, and full-dose oral anticoagulation on postop day #2 at the earliest. Those anticoagulants can be restarted if the patient's hemoglobin is stable, his abdominal exam stays benign, and if he continues to tolerate food. Repeat LFTs in the morning. The patient will follow up in [facility] with Dr. Arnold in 2 weeks with repeat LFTs, that appointment has already been made and updated in the discharge planning. This patient was seen and evaluated with Dr. Arnold this morning during rounds. Job ID: [id number] [facility]
[2019-08-02] MEDS: Heparin 10,000 UNITS/ 10 ML VIAL SLOW IVP SCH (19:00)
[2019-08-03] MEDS: Heparin 10,000 UNITS/ 10 ML VIAL SLOW IVP SCH (00:35)
[2019-08-03] MEDS: HYDROcodone/Acetaminophen 5/325 mg Tablet PO PRN ×2 (02:22→09:14)
[2019-08-03] MEDS: Amlodipine 5 MG TAB PO SCH (04:51)
[2019-08-03] MEDS: Acetaminophen 325 MG TAB PO SCH (04:52)
[2019-08-03] MEDS: Hydrochlorothiazide 25 MG TAB PO SCH (04:52)
[2019-08-03 05:07] LABS: ALT (SGPT) 419 U/L (8-55); AST (SGOT) 341 U/L (5-34); Alkaline Phosphatase 68 U/L (40-110); Anion Gap 12 mmol/L (10-20); BUN (Urea Nitrogen) 14 mg/dL (8.4-25.7); Bilirubin, Total 0.7 mg/dL (0.2-1.2); Calc. Creatinine Clearance 144 mL/min (70-130); Carbon Dioxide 28 mmol/L (23-31); Chloride 98 mmol/L (98-107); Estimated GFR-MDRD Greater than 90; Globulin 2.9 g/dL (2.4-3.5); Glucose 95 mg/dL (80-115); Phosphorus 4.5 mg/dL (2.3-4.7); Potassium 3.6 mmol/L (3.5-5.1); Protein, Total 6.9 g/dL (5.8-8.1); Sodium 134 mmol/L (136-145)
--- NOTE | 2019-08-03 06:09 | PRG ---
DATE OF SERVICE: 08/02/2019 SUBJECTIVE: The patient was seen during evening rounds, awake, alert, in no distress. The patient is postop day #1, status post lap cholecystectomy with intraoperative cholangiogram for acute cholecystitis. The patient's pain is well controlled at this time. The patient reports a good appetite and eating very well. The patient reports walking without any difficulties. 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 OBJECTIVE: VITAL SIGNS: Stable, afebrile. GENERAL: Well-appearing, middle-aged male, awake, alert, no distress. PULMONARY: Equal chest rise and fall, no respiratory distress. ASSESSMENT: Postoperative day #1, status post laparoscopic cholecystectomy with intraoperative cholangiogram for acute cholecystitis. PLAN: Continue diet and pain regimen. Job ID: [id number]
[2019-08-03] MEDS: Heparin 25,000 units/D5W 500 ML IV SCH (06:21)
[2019-08-03 06:48] LABS: Band 13 % (5-11); Eosinophils 8 % (0-10); Hemoglobin 13.1 g/dL (14.0-18.0); Lymphocytes 15 % (21-51); MDiff Complete? YES; Macrocytosis SLIGHT = 6-15 cells (100X) (0-5/hpf); Mean Corpuscular HGB CONC 34.1 g/dL (32.0-36.0); Mean Corpuscular Hemoglobin 35.5 pg (27.0-31.0); Monocytes 14 % (0-10); Neutrophil 48 % (42-75); Platelet Count 114 thou/uL (130-400); Platelet Morphology Comment Appears Decreased; RBC Distribution Width 12.5 % (11.5-14.5); White Blood Cell (WBC) Count 4.8 thou/uL (4.8-10.8)
[2019-08-03] MEDS: Folic Acid 1 MG TAB PO SCH (08:11)
[2019-08-03] MEDS: Multivitamin W/ Minerals 1 TAB PO SCH (08:11)
[2019-08-03] MEDS: Thiamine 100 MG TAB PO SCH (08:11)
[2019-08-03] MEDS: Magnesium Oxide 400 MG TAB PO SCH (08:11)
[2019-08-03] MEDS: Dronedarone HCl 400 MG TAB PO SCH (08:11)
[2019-08-03 08:57] VITALS: BP 146/72; TEMP 98.7
--- NOTE | 2019-08-03 09:45 | PDOC.HOSPP ---
- Subjective Encounter Date: 08/03/19 Encounter Time: 07:50 Subjective: Patient seen and examined. No new complaints. No overnight events - Objective Vital Signs & Weight: Vital Signs (12 hours) Temp Pulse Resp BP BP Pulse Ox 08/03/19 08:10 98.7 F 60 16 146/72 H 97 08/03/19 08:00 146/72 H 97 08/03/19 04:56 97.9 F 58 L 18 140/73 96 08/02/19 21:45 98 Weight Admit Weight 248 lb 9.6 oz Weight 236 lb 3 oz Most Recent Monitor Data Heart Rate from ECG 61 NIBP 181/118 NIBP BP-Mean 139 Respiration from ECG 24 SpO2 98 I&O: 08/02/19 08/03/19 08/04/19 06:59 06:59 06:59 Intake Total 490 3272 Output Total 400 4900 Balance 90 -1628 Result Diagrams: 08/03/19 04:35 08/03/19 04:35 EKG Reviewed by me: Yes Hospitalist ROS - Review of Systems ENT: denies: ear pain, ear discharge, nose pain, nose discharge, nose congestion , mouth pain, mouth swelling, throat pain, throat swelling, other Respiratory: denies: cough, dry, shortness of breath, hemoptysis, SOB with excertion, pleuritic pain, sputum, wheezing, other Cardiovascular: denies: chest pain, palpitations, orthopnea, paroxysmal noc. dyspnea, edema, light headedness, other Gastrointestinal: denies: nausea, vomiting, abdominal pain, diarrhea, constipation, melena, hematochezia, other Genitourinary: denies: dysuria, frequency, incontinence, hematuria, retention, other Musculoskeletal: denies: neck pain, shoulder pain, arm pain, back pain, hand pain, leg pain, foot pain, other - Medication Medications: Active Medications Generic Name Dose Route Start Last Admin Trade Name Freq PRN Reason Stop Dose Admin Acetaminophen 650 mg 08/01/19 23:59 08/03/19 04:52 Tylenol PO Not Given Q6HR [facility] Hydrocodone Bitart/Acetaminophen 2 tab 07/28/19 23:33 08/03/19 09:14 [place] 5/325 PO 2 tab Q4H PRN Administration Severe Pain (7-10) Amlodipine Besylate 5 mg 07/30/19 06:00 08/03/19 04:51 Norvasc PO 5 mg 0600 [facility] Administration Diazepam 5 mg 07/30/19 04:00 07/30/19 21:41 Valium PO 5 mg Q4H PRN Administration FOR ASE 10 OR GREATER Dronedarone 400 mg 07/31/19 17:00 08/03/19 08:11 Multaq PO 400 mg BID-[facility] Administration Folic Acid 1 mg 07/29/19 09:00 08/03/19 08:11 Folvite PO 1 mg DAILY [facility] Administration Heparin Sodium (Porcine) 0 units 08/02/19 09:00 08/03/19 00:35 Heparin 1,000 Units/Ml (10 Ml) SLOW IVP 3.252 ml WILLCALL [facility] Administration Hydralazine HCl 10 mg 07/29/19 12:09 08/01/19 20:04 Apresoline SLOW IVP 10 mg Q4H PRN Administration SBP Greater Than 180 Hydrochlorothiazide 25 mg 07/30/19 06:00 08/03/19 04:52 Hydrochlorothiazide PO 25 mg 00 [facility] Administration Heparin Sodium/Dextrose 500 mls @ 0 mls/hr 08/02/19 09:00 08/03/19 06:21 Heparin 25,000 Units/D5w IV 500 mls INF [facility] Administration Protocol As Directed Iron/Minerals/Multivitamins 1 tab 07/29/19 09:00 08/03/19 08:11 Theragran M PO 1 tab DAILY [facility] Administration Labetalol HCl 10 mg 07/29/19 12:09 07/29/19 20:15 Normodyne SLOW IVP 2 ml Q4H PRN Administration SBP Greater Than 180 Magnesium Oxide 400 mg 07/30/19 09:00 08/03/19 08:11 Magnesium Oxide PO 400 mg DAILY [facility] Administration Metoprolol Succinate 25 mg 08/01/19 09:00 08/03/19 08:11 Toprol Xl PO 25 mg DAILY [facility] Administration Ondansetron HCl 4 mg 07/28/19 23:33 07/29/19 02:38 Zofran Odt PO 4 mg Q6H PRN Administration Nausea/Vomiting Pantoprazole Sodium 40 mg 08/01/19 09:00 08/03/19 08:11 Protonix PO 40 mg DAILY [facility] Administration Sodium Chloride 10 ml 07/30/19 21:00 08/03/19 08:24 Flush - Normal Saline IVF Not Given Q12HR [facility] Thiamine HCl 100 mg 07/30/19 09:00 08/03/19 08:11 Thiamine PO 100 mg DAILY [facility] Administration - Exam General Appearance: NAD, awake alert Eye: PERRL, anicteric sclera ENT: normocephalic atraumatic, no oropharyngeal lesions Neck: supple, symmetric, no JVD Heart: RRR, no murmur, no gallops Respiratory: CTAB, no wheezes, no rales Gastrointestinal: soft, non-tender, non-distended, normal bowel sounds Extremities: no cyanosis, no clubbing, no edema Skin: normal turgor, no lesions Neurological: no focal deficits Musculoskeletal: normal tone, normal strength Psychiatric: normal affect, normal behavior Hosp A/P (1) Atrial fibrillation, new onset Code(s): I48.91 - UNSPECIFIED ATRIAL FIBRILLATION Status: Resolved (2) Chronic calculous cholecystitis Code(s): K80.10 - CALCULUS OF GALLBLADDER W CHRONIC CHOLECYST W/O OBSTRUCTION Status: Acute (3) Alcoholic fatty liver Code(s): K70.0 - ALCOHOLIC FATTY LIVER Status: Chronic (4) Elevated LFTs Code(s): R79.89 - OTHER SPECIFIED ABNORMAL FINDINGS OF BLOOD CHEMISTRY Status : Acute (5) Medical non-compliance Code(s): Z91.19 - PATIENT'S NONCOMPLIANCE W OTH MEDICAL TREATMENT AND REGIMEN Status: Acute (6) CAD (coronary artery disease) Code(s): I25.10 - ATHSCL HEART DISEASE OF [place] CORONARY ARTERY W/O ANG PCTRS Status: Chronic (7) Depression Code(s): F32.9 - MAJOR DEPRESSIVE DISORDER, SINGLE EPISODE, UNSPECIFIED Status : Chronic (8) HLD (hyperlipidemia) Code(s): E78.5 - HYPERLIPIDEMIA, UNSPECIFIED Status: Chronic (9) HTN (hypertension) Code(s): I10 - ESSENTIAL (PRIMARY) HYPERTENSION Status: Chronic (10) Obesity Code(s): E66.9 - OBESITY, UNSPECIFIED Status: Chronic Qualifiers: Obesity classification: adult class 1 (BMI 30 - 34.9) (11) Tobacco abuse Code(s): Z72.0 - TOBACCO USE Status: Chronic (12) Folate deficiency Code(s): E53.8 - DEFICIENCY OF OTHER SPECIFIED B GROUP VITAMINS Status: Chronic - Plan old records reviewed/req today plan for WILI and possible cardioversion continue heparin drip possible surgery tomorrow for gall bladder folic acid dc ivf continue cardizem multaq as per EP 08/01/19 s/p cardioversion today lap nereida continue brilinta after surgery will start elliquis cardiology recommendation noted transfer to tele after surgery if doing well, will consider dc tomorrow am 08/02/19 as per surgeon continue heparin drip for now when surgeon ok, will change to oral anticoagulant discharge when cleared by all hr shared services consultant 08/03/19 see discharge summery stable for discharge
--- NOTE | 2019-08-03 10:07 | PDOC.CPN ---
- Subjective Date: 08/03/19 Time: 10:00 Interval history: Mr. Schmitt is feeling well, very anxious to go home. He denies any cardiac complaints or concerns. No overnight events on telemetry, maintaining SR. - Review of Systems General: denies: fever/chills, weight/appetite/sleep changes, night sweats, fatigue Respiratory: denies: cough, congestion, shortness of breath, exercise intolerance Cardiovascular: denies: chest pain, palpitation, edema, paroxysmal nocturnal dyspnea, orthopnea Gastrointestinal: denies: nausea, vomiting, diarrhea, constipation, abd pain, GI bleeding Musculoskeletal: denies: pain, tenderness, stiffness, swelling, arthritis/ arthralgias Neurological: denies: numbness, syncope, seizure, weakness - Objective Allergies/Adverse Reactions: Allergies Allergy/AdvReac Type Severity Reaction Status Date / Time Sulfa (Sulfonamide Allergy Verified 05/16/19 15:57 Antibiotics) Visit Medications: Current Medications Acetaminophen (Tylenol) 650 mg PO Q6HR [facility] Last Admin: 08/03/19 04:52 Dose: Not Given Hydrocodone Bitart/Acetaminophen ([place] 5/325) 1 tab PO Q4H PRN PRN Reason: Moderate Pain (4-6) Hydrocodone Bitart/Acetaminophen ([place] 5/325) 2 tab PO Q4H PRN PRN Reason: Severe Pain (7-10) Last Admin: 08/03/19 09:14 Dose: 2 tab Amlodipine Besylate (Norvasc) 5 mg PO 0600 [facility] Last Admin: 08/03/19 04:51 Dose: 5 mg Artificial Tears (Tears Naturale) 2 drop EA EYE PRN PRN PRN Reason: Dry Eyes Bisacodyl (Dulcolax) 10 mg [place] DAILYPRN PRN PRN Reason: Constipation Diazepam (Valium) 5 mg PO Q4H PRN PRN Reason: FOR ASE 10 OR GREATER Last Admin: 07/30/19 21:41 Dose: 5 mg Dronedarone (Multaq) 400 mg PO BID-[facility] Last Admin: 08/03/19 08:11 Dose: 400 mg Folic Acid (Folvite) 1 mg PO DAILY [facility] Last Admin: 08/03/19 08:11 Dose: 1 mg Guaifenesin (Robitussin Sf) 200 mg PO Q4H PRN PRN Reason: Cough Heparin Sodium (Porcine) (Heparin 1,000 Units/Ml (10 Ml)) 0 units SLOW IVP WILLCALL [facility] Last Admin: 08/03/19 00:35 Dose: 3.252 ml Hydralazine HCl (Apresoline) 10 mg SLOW IVP Q4H PRN PRN Reason: SBP Greater Than 180 Last Admin: 08/01/19 20:04 Dose: 10 mg Hydrochlorothiazide (Hydrochlorothiazide) 25 mg PO 0600 [facility] Last Admin: 08/03/19 04:52 Dose: 25 mg Heparin Sodium/Dextrose (Heparin 25,000 Units/D5w) 500 mls @ 0 mls/hr IV INF [facility]; Protocol Last Admin: 08/03/19 06:21 Dose: 500 mls Iron/Minerals/Multivitamins (Theragran M) 1 tab PO DAILY [facility] Last Admin: 08/03/19 08:11 Dose: 1 tab Labetalol HCl (Normodyne) 10 mg SLOW IVP Q4H PRN PRN Reason: SBP Greater Than 180 Last Admin: 07/29/19 20:15 Dose: 2 ml Loperamide HCl (Imodium) 2 mg PO PRN PRN PRN Reason: Diarrhea/Loose Stools Loratadine (Claritin) 10 mg PO DAILYPRN PRN PRN Reason: Sinus Symptoms Lorazepam (Ativan) 2 mg SLOW IVP Q6H PRN PRN Reason: Anxiety/Agitation Magnesium Oxide (Magnesium Oxide) 400 mg PO DAILY [facility] Last Admin: 08/03/19 08:11 Dose: 400 mg Metoprolol Succinate (Toprol Xl) 25 mg PO DAILY [facility] Last Admin: 08/03/19 08:11 Dose: 25 mg Ondansetron HCl (Zofran Odt) 4 mg PO Q6H PRN PRN Reason: Nausea/Vomiting Last Admin: 07/29/19 02:38 Dose: 4 mg Ondansetron HCl (Zofran) 4 mg IVP Q6H PRN PRN Reason: Nausea/Vomiting Pantoprazole Sodium (Protonix) 40 mg PO DAILY [facility] Last Admin: 08/03/19 08:11 Dose: 40 mg Senna/Docusate Sodium (Senokot S) 2 tab PO BIDPRN PRN PRN Reason: Constipation Sodium Chloride (Flush - Normal Saline) 10 ml IVF Q12HR [facility] Last Admin: 08/03/19 08:24 Dose: Not Given Sodium Chloride (Flush - Normal Saline) 10 ml IVF PRN PRN PRN Reason: Saline Flush Sodium Chloride ([place] Nasal [place] 0.65%) 0 ml EA NARE QIDPRN PRN PRN Reason: Nasal Congestion Thiamine HCl (Thiamine) 100 mg PO DAILY [facility] Last Admin: 08/03/19 08:11 Dose: 100 mg Throat Lozenges (Cepastat Lozenges) 1 hari PO Q2H PRN PRN Reason: Sore Throat Tramadol HCl (Ultram) 100 mg PO Q6H PRN PRN Reason: Severe Pain (7-10) Tramadol HCl (Ultram) 50 mg PO Q6H PRN PRN Reason: Moderate Pain (4-6) Zolpidem Tartrate (Ambien) 5 mg PO HSPRN PRN PRN Reason: Insomnia Vital Signs & Weight: Vital Signs Temp Pulse Resp BP BP Pulse Ox 08/03/19 08:10 98.7 F 60 16 146/72 H 97 08/03/19 08:00 146/72 H 97 08/03/19 04:56 97.9 F 58 L 18 140/73 96 Admit Weight 248 lb 9.6 oz Weight 236 lb 3 oz - CHADS-VASc Hypertension: 1 Vascular disease: 1 Risk Score: 2 - Quality Measures Condition: Atrial Fibrillation/Flutter (hx or current), Coronary Artery Disease CV meds: Beta Deja: Yes, SHEELA/ARB: No, Statin: Yes, ASA: Yes, Plavix/Effient/ Brilinta: Yes, Anticoagulant: Yes - Physical Exam General: alert & oriented x3, appears well, no apparent distress HEENT: mucus membranes moist, normocephaly Neck: supple neck, no JVD/HJR Cardiac: regular rate and rhythm, no murmur, S1/S2 Lungs: clear to auscultation, normal breath sounds, no wheeze, rales, rhonchi Neuro: grossly intact Abdomen: active bowel sounds, soft, non-tender Extremities: no cyanosis, no clubbing, no edema Skin: clear Musculoskeletal: normal range of motion - Labs Result Diagrams: 08/03/19 04:35 08/03/19 04:35 Troponin/CKMB CK-MB (CK-2) 1.5 ng/mL (0-6.6) 07/28/19 21:01 Troponin I 0.026 ng/mL (< 0.028) 07/29/19 02:54 - Telemetry Sinus rhythms and dysrhythmias: sinus rhythm - Assessment/Plan Assessment/Plan: Assessment: 1. Atrial fibrillation-> Atrial flutter -s/p WILI/CV 07/31/19 -On suppressive therapy c/ Multaq. Maintaining SR. 2. HTN-stable - 3. Acute cholecystitis - lap nereida performed 07/31 PM 4. CAD - recent PCI (April 2019) on Brillinta 5. ETOH abuse Okay to discharge home. Start Eliquis tonight, continue Brilinta, stop aspirin. Follow-up with Dr. Devlin in 3 weeks.
--- NOTE | 2019-08-03 11:02 | EKG ---
Test Reason : Blood Pressure : / mmHG Vent. Rate : 139 BPM Atrial Rate : 136 BPM P-R Int : 000 ms QRS Dur : 134 ms QT Int : 344 ms P-R-T Axes : 000 -66 038 degrees QTc Int : 523 ms Atrial fibrillation with rapid ventricular response Right bundle branch block Left anterior fascicular block Bifascicular block Abnormal ECG Confirmed by RICKY VAZQUEZ DO ([id number]), publications editor MARY CAGE ([id number]) on 08/03/2019 11:01:43 AM Referred By: Confirmed By:RICKY VAZQUEZ DO
--- NOTE | 2019-08-03 11:02 | EKG ---
Test Reason : Blood Pressure : / mmHG Vent. Rate : 133 BPM Atrial Rate : 153 BPM P-R Int : 000 ms QRS Dur : 144 ms QT Int : 338 ms P-R-T Axes : 000 -69 087 degrees QTc Int : 503 ms Atrial fibrillation with rapid ventricular response with premature ventricular or aberrantly conducte d complexes Right bundle branch block Left anterior fascicular block Bifascicular block Abnormal ECG Confirmed by RICKY VAZQUEZ DO ([id number]), design editor MARY CAGE ([id number]) on 08/03/2019 11:01:48 AM Referred By: Confirmed By:RICKY VAZQUEZ DO
--- NOTE | 2019-08-03 11:20 | DIS ---
DATE OF ADMISSION: 07/29/2019 DATE OF DISCHARGE: 08/03/2019 PRIMARY CARE PHYSICIAN: Mark Moran DO DISCHARGE DISPOSITION: Home. PRIMARY DISCHARGE DIAGNOSES: 1. Atrial fibrillation with rapid ventricular response, status post cardioversion. 2. Folate deficiency. 3. Chronic acalculous cholecystitis, status post laparoscopic cholecystectomy. 4. Type [address] elevation. SECONDARY DISCHARGE DIAGNOSES: 1. Alcoholic fatty liver. 2. Hypertension. 3. Medication noncompliance. 4. Coronary artery disease. 5. Dyslipidemia. 6. Obesity with BMI 32. PRIMARY PROCEDURE/OPERATION: Transesophageal echocardiography and DC cardioversion, laparoscopic cholecystectomy. RADIOLOGICAL INVESTIGATION: Chest x-ray on admission showed no acute process. Abdomen and pelvis CT scan showed distended gallbladder with mild gallbladder wall enhancement, diffuse fatty liver, diverticulosis. Cholangiogram unremarkable. Echocardiograph, transesophageal and transthoracic. SIGNIFICANT LABORATORY DATA: WBC 4.8, hemoglobin 13.1, platelet 114. Sodium 134, creatinine 0.82. LFT showed elevated AST and ALT. Urinalysis unremarkable. Urine drug screen negative. Alcohol level 259. COVID-19 negative. DISCHARGE MEDICATIONS: 1. Prozac 20 mg daily. 2. Amlodipine 5 mg daily. 3. Eliquis 5 mg b.i.d. 4. Multaq 400 mg b.i.d. 5. Folic acid 1 mg daily. 6. Hydrochlorothiazide 25 mg daily. 7. Magnesium oxide 400 mg daily. 8. Toprol-XL 25 mg p.o. daily. 9. Multivitamin one tablet daily. 10. Protonix 40 mg p.o. daily. 11. Thiamine 100 mg daily. 12. Brilinta 90 mg p.o. b.i.d. 13. Tramadol 50 mg q.6 hourly p.r.n. for pain. CONTRAINDICATION: None. CODE STATUS: DNR. INPATIENT CONSULTANTS: 1. Dr. Devlin was consulted for atrial fibrillation. 2. Dr. Jonathan Saravia was following for atrial fibrillation. 3. Dr. Arnold was consulted for cholecystitis. TEST RESULT PENDING ON DISCHARGE: None. ALLERGIES: SULFA DRUG. DISCHARGE PLAN: Post hospital, the patient will follow up with Dr. Devlin in 2 to 3 weeks. The patient has appointment with Dr. Arnold on August 15, 2019, at 10:30 a.m. The patient will follow up with Dr. Mark Moran in 1 week. The patient will follow up with Dr. Jonathan Saravia in 3 to 4 weeks. HOSPITAL COURSE: A 64-year-old male, who was admitted by Dr. Becerra. Please see his H and P for more details. The patient was admitted for nausea and vomiting. In the emergency room, the patient had CT abdomen and pelvis, which showed findings suspected for chronic cholecystitis. The patient had previously HIDA scan, which showed gallbladder dyskinesia. The patient was also found with AFib with RVR during this admission. The patient was treated with heparin drip for anticoagulation and rate was controlled with beta-wes medication. The patient's heart rate was not under control and that is why Electrophysiology was consulted and they recommended cardioversion. Transesophageal echocardiography was unremarkable and the patient underwent successful DC cardioversion. After rate control, the patient underwent laparoscopic cholecystectomy. His hospital course remained uncomplicated. We transferred from [facility] to telemetry floor. The patient was ambulating, tolerating p.o. well. Regarding chronic anticoagulation, Cardiology recommended to start Eliquis on discharge. To control him in sinus rhythm, Multaq was prescribed. The patient will follow up with data warehouse consultant as mentioned above. His blood pressure medication was adjusted as above. Necessary postoperative education was given to the patient. Overall, the patient is medically stable for discharge. The patient is seen and examined at bedside today. Please see my progress note from today for further details. Job ID: [id number]
== END 2019-08-03 11:41 | disposition home or self-care (01) | DRG 417 ==
LOC: ERS 20:34 → IMCU/EMU 07-29 01:51 → 2NO 08-01 20:59
PROVIDERS: ADMIT Internal Medicine; ATTEND Internal Medicine
PROC: 5A2204Z Restoration of Cardiac Rhythm, Single (ICD-10-PCS; 2019-07-31)
PROC: B24BZZ4 Ultrasonography of Heart with Aorta, Transesophageal (ICD-10-PCS; 2019-07-31)
PROC: 0FT44ZZ Resection of Gallbladder, Percutaneous Endoscopic Approach (ICD-10-PCS; principal; 2019-08-01)
PROC: BF101ZZ Fluoroscopy of Bile Ducts using Low Osmolar Contrast (ICD-10-PCS; 2019-08-01)
DX: K80.46 Calculus of bile duct with acute and chronic cholecystitis without obstruction (principal); I21.A1 Myocardial infarction type 2; I48.4 Atypical atrial flutter; D68.8 Other specified coagulation defects; Z20.828 Contact with and (suspected) exposure to other viral communicable diseases; I48.0 Paroxysmal atrial fibrillation; I25.10 Atherosclerotic heart disease of native coronary artery without angina pectoris; E78.00 Pure hypercholesterolemia, unspecified; I10 Essential (primary) hypertension; F32.9 Major depressive disorder, single episode, unspecified; F17.210 Nicotine dependence, cigarettes, uncomplicated; F10.10 Alcohol abuse, uncomplicated; K70.0 Alcoholic fatty liver; E53.8 Deficiency of other specified B group vitamins; E66.9 Obesity, unspecified; Z88.2 Allergy status to sulfonamides; Z95.5 Presence of coronary angioplasty implant and graft; Z79.82 Long term (current) use of aspirin; Z79.899 Other long term (current) drug therapy; Z68.32 Body mass index [BMI] 32.0-32.9, adult; Z91.19 Patient's noncompliance with other medical treatment and regimen
CPT/HCPCS: 36415; 47532; 71045; 74177; 80053; 80306; 80307; 81003; 81015; 82550; 82553; 82607; 82746; 83690; 83735; 84100; 84443; 84450; 84460; 84484; 85007; 85014; 85018; 85025; 85027; 85049; 85730; 86850; 86900; 86901; 87635; 88304; 93005; 93010; 93312; 93355; 96361; 96365; 96366; 96376; J0360; J0694; J1160; J1644; J1650; J1885; J2001; J2250; J2405; J2704; J3010; J3411; J3475; J3490; J7042; Q0162; Q9967; S0020; S0028; U0003

== ENCOUNTER 2019-08-22 11:06 | Emergency (ER) | payer OTHER ==
[2019-08-22] MEDS ORDERED: Multivitamins, Adult 10 ML, Thiamine HCl 100 MG, Folic Acid 1 MG in Dextrose 5 %-0.45 %... IV SCH (12:15)
[2019-08-22 12:25] LABS: #Basophils 0.1 thou/uL (0.0-0.2); #Eosinphils 0.1 thou/uL (0.0-0.7); #Lymphocytes 1.4 thou/uL (1.20-3.40); #Monocytes 0.7 thou/uL (0.11-0.59); #Neutrophils 3.6 thou/uL (1.40-6.50); %Basophils 2.1 % (0.0-1.0); %Eosinophils 0.9 % (0.0-10.0); %Lymphocytes 24.7 % (21.0-51.0); %Monocytes 11.2 % (0.0-10.0); %Neutrophils 61.2 % (42.0-75.0); Hemoglobin 13.8 g/dL (14.0-18.0); Mean Corpuscular HGB CONC 34.3 g/dL (32.0-36.0); Mean Corpuscular Hemoglobin 35.2 pg (27.0-31.0); Mean Platelet Volume 6.4 fL (7.4-10.4); Platelet Count 234 thou/uL (130-400); RBC Distribution Width 11.7 % (11.5-14.5); Red Blood Cell (RBC) Count 3.93 mill/uL (4.70-6.10); White Blood Cell (WBC) Count 5.8 thou/uL (4.8-10.8)
[2019-08-22] MEDS ORDERED: Lorazepam 1 MG TAB ONE (12:29)
[2019-08-22 12:43] LABS: ALT (SGPT) 165 U/L (8-55); AST (SGOT) 137 U/L (5-34); Acetaminophen Less than 6.0 mcg/mL (10.0-30.0); Albumin 4.4 g/dL (3.4-4.8); Alcohol 244 mg/dL (Less than 10); Alkaline Phosphatase 102 U/L (40-110); Anion Gap 24 mmol/L (10-20); BUN (Urea Nitrogen) 12 mg/dL (8.4-25.7); Bilirubin, Total 0.8 mg/dL (0.2-1.2); Calc. Creatinine Clearance 0 mL/min (70-130); Calcium 8.8 mg/dL (7.8-10.44); Carbon Dioxide 19 mmol/L (23-31); Chloride 98 mmol/L (98-107); Estimated GFR-MDRD Greater than 90; Globulin 3.3 g/dL (2.4-3.5); Protein, Total 7.7 g/dL (5.8-8.1); Salicylate Less than 8.0 mg/dL (15.0-30.0); Sodium 137 mmol/L (136-145)
[2019-08-22 12:46] LABS: Glucose 53 mg/dL (80-115)
[2019-08-22] MEDS ORDERED: Ondansetron PF 4 MG/2 ML Vial ONE (12:48)
[2019-08-22 12:51] LABS: Bilirubin Negative (Negative); Blood, Urine Negative (Negative); Clarity Clear (Clear); Glucose, Urine (Dipstick) Normal (Negative); Ketone, Urine 40 mg/dL (Negative); Leukocyte Negative Leu/uL (Negative); Nitrite Negative (Negative); Protein, Urine (Dipstick) 20 mg/dL (Neg-Trace); Specific Gravity, Urine 1.017 (1.002-1.036); pH, Urine 5.5 (5.0-9.0)
[2019-08-22 13:01] LABS: Amphetamine Not Detected (NotDetected); Barbiturates Screen Not Detected (NotDetected); Benzodiazepine Screen Detected (NotDetected); Cocaine Metabolite Screen Not Detected (NotDetected); Medtox Control Line Valid? VALID (VALID); Medtox Reader # READER 4; Methadone Not Detected (NotDetected); Methamphetamine Not Detected (NotDetected); Opiate Screen Not Detected (NotDetected); Oxycodone Screen Not Detected (NotDetected); Phencyclidine (PCP) Not Detected (NotDetected); THC/Cannabinoid Screen Not Detected (NotDetected); Tricyclic Screen Not Detected (NotDetected)
[2019-08-22] MEDS ORDERED: Amlodipine 5 MG TAB ONE (14:49)
[2019-08-22] MEDS ORDERED: Metoprolol Tartrate 25 MG TAB ONE (14:49)
[2019-08-22] MEDS ORDERED: Metoclopramide HCl 10 MG/2 ML VIAL ONE (15:47)
== END 2019-08-22 19:23 | disposition home or self-care (01) ==
LOC: ERS 11:06
DX: F10.129 Alcohol abuse with intoxication, unspecified (principal); F32.9 Major depressive disorder, single episode, unspecified; F43.9 Reaction to severe stress, unspecified; I10 Essential (primary) hypertension; Y90.6 Blood alcohol level of 120-199 mg/100 ml; Z87.891 Personal history of nicotine dependence; Z79.01 Long term (current) use of anticoagulants; Z79.899 Other long term (current) drug therapy
CPT/HCPCS: 36415; 36416; 80053; 80306; 80307; 81003; 84443; 85025; 96365; 96366; 96368; 96375; J2405; J2765; J3411; J7042